=== PATIENT | female | born 1940 | race Caucasian/White ===

== ENCOUNTER 2024-12-09 11:44 | Inpatient (IN) | payer MEDICARE, SELFPAY ==
[2024-12-09] VITALS (14 sets, daily range): BP systolic 84–113; BP diastolic 40–63; BMI 21.6
--- NOTE | 2024-12-09 08:28 | ED.GENMED ---
History of Present Illness
<Alyssa French PA-C - Last Filed: 12/09/24 11:44>
General
Chief Complaint: Breathing Problem
Source: patient, ambulance crew and correction records
Exam Limitations: none
Time Seen by Provider: 12/09/24 08:14
Nursing documentation reviewed up to this point in time: agreed with
History of Present Illness
History of Present Illness:
Patient is an 84-year-old female with past medical history of end-stage renal disease on hemodialysis Monday, Monday, Monday, hyperlipidemia, cirrhosis, ascites, hypothyroidism, who presents to the emergency department from her nursing facility
via EMS for evaluation of hypoxemia, altered mental status. Patient reports that she has been feeling unwell for the past 3 days or so. She reports she has been more tired than usual and has been sleeping a lot. She reports that her body felt hot
and she was concerned she had a fever. She reports that they would check it at the facility and the highest it was was 99 �F. Patient reports that she woke up this morning as usual and went to dialysis. She reports they did not give her her
midodrine prior to going to dialysis because her systolic blood pressure was greater than 130. Patient reportedly had about 54 minutes of dialysis before they noticed that she seemed a little out of it. They also noticed that her oxygen levels
were in the low 80s and 911 was called. Patient does not use supplemental oxygen at baseline. Patient reports that she has had a runny/stuffy nose lately as well as a nonproductive cough. Patient reports that the cough does make her feel a little
short of breath. Patient denies chest pain, abdominal pain nausea, vomiting. Patient reports some looser bowel movements this morning otherwise denies change in her bowel habits. Patient denies any lower extremity edema. Patient reports she does
have a wound to the left lower extremity which they are checking and dressing daily at her facility. Patient reports she receives dialysis via a Permacath in the right neck.
Past History
<Alyssa French PA-C - Last Filed: 12/09/24 11:44>
Past History
ED Past Medical History: Renal failure and Other (Cirrhosis, ESLD, paracentesis)
ED Past Surgical History: Other
Social History
Tobacco: Non-smoker
Alcohol: None
Drug: None
Personal: Single
Living: with family
Review of Systems
<Alyssa French PA-C - Last Filed: 12/09/24 11:44>
Review of Systems
Allergies reviewed?: Yes
All Other Systems: ROS reviewed and negative except as documented in HPI and ROS
Constitutional: Reports fatigue and chills
EENT: Reports runny nose
Respiratory: Reports cough and trouble breathing
Cardiac: Reports no symptoms; Denies chest pain or palpitations
ABD/GI: Reports diarrhea; Denies abdominal pain, nausea or vomiting
: Reports no symptoms
Musculoskeletal: Reports no symptoms
Skin: Reports other (wound to the LLE)
Neurological: Reports no symptoms
Endocrine: Reports no symptoms
Hematologic/Lymphatic: Reports no symptoms
Psychiatric: Reports no symptoms
Phy Exam
<Alyssa French PA-C - Last Filed: 12/09/24 11:44>
General Physical Exam
General Presentation: well appearing and no apparent distress
General age: other (cachectic)
General Skin: dry and feels hot
General Habitus: normal
General Mental: alert
General Hydration: appears well hydrated
ENT Exam
ENT Exam: EOMI, pharynx normal, neck supple and normocephalic
Eye Exam
Eye Exam: PERRL, cornea clear and conjunctiva normal
Cardiovascular Exam
Cardiovascular Exam: regular rate/rhythm, no edema, no murmur and normal peripheral pulses
Pulmonary Exam
Pulmonary Exam: lungs clear, no rales, no crackles, no rhonchi and no stridor
Respiratory Effort: tachypnea
Respirations: mild increase in effort
Gastrointestinal Exam
Gastrointestinal Exam: normal bowel sounds, non tender, soft, no organomegaly, no pulsatile mass, non distended and other (reducible umbilical hernia)
Neurological Exam
Neurological Exam: alert, oriented x3, no motor deficits and speech normal
Musculoskeletal Exam
Musculoskeletal Exam: full ROM and no edema
Skin Exam
Skin Exam: normal color, warm/dry, no rash, no petechia and other (wound to the proximal aspect of the posterior left lower leg with purulent drainage noted)
Psychiatric Exam
Psychiatric Exam: normal mood/affect
Scores
<Alyssa French PA-C - Last Filed: 12/09/24 11:44>
Heart Failure Risk
Heart Failure Risk Score: Not Applicable
Sepsis
<Alyssa French PA-C - Last Filed: 12/09/24 11:44>
Sepsis Criteria
Sepsis Criteria:
Sepsis caveat: Full 30cc/kg bolus of IVF not given due to suspicion that the patient is already fluid overloaded as she only had 1 hour of HD this morning and otherwise last session was 3 days ago along with patient's mildly increased respiratory
effort.
Sepsis Screening
Sepsis Assessment: Sepsis
Sepsis Screening: Lactate >/=4mmol/L and Hypotension
Sepsis Screen
Sepsis Screen: Sepsis
Date: 12/09/24
Time: 11:43
<Lencho Huynh MD - Last Filed: 12/09/24 12:42>
Sepsis Screen
Sepsis Screen: Sepsis
Date: 12/09/24
Time: 12:42
Course
<Alyssa French PA-C - Last Filed: 12/09/24 11:44>
Orders/Labs/Results
Orders:
Orders
12/09/24 08:16
EKG [Electrocardiogram (*1)] Urgent
Reason for Study: Tachycardia
EKG- Treatment ONCE
12/09/24 08:31
Cardiac Monitoring- Treatment ONCE
Urinalysis Reflex To Culture Urgent
Date Specimen was Collected: 12/09/24
Time Specimen was Collected: 10:00
Acetaminophen [Tylenol] 1,000 mg PO NOW STA
12/09/24 08:32
EKG- Treatment ONCE
CR Chest Portable - 1 View Urgent
Comment:
Reason For Exam: fever, hypoxemia, altered mental status, ?PNA
Reason Study Needs to be Portable: Unable to Transport
12/09/24 08:33
0.9% Sodium Chloride 250 ml [Nss] 250 ml IV BOLUS
12/09/24 08:40
Complete Blood Count/With Diff Urgent
Comprehensive Metabolic Panel Urgent
Lactic Acid Q4H
Comment: CANCEL 2nd LACTIC ACID IF 1st LACTIC ACID IS LESS THAN 2
PTT Urgent
Prothrombin Time Urgent
Blood Culture Q30M
ARTURO Source: Blood/Venous
Specimen Description:
Blood Culture Q30M
ARTURO Source: Blood/Venous
Specimen Description:
12/09/24 08:47
Knee, Left 4 or More Views [CR Knee - Left 4 Or More View*] Urgent
Comment:
Reason For Exam: left posterior knee wound
Tibia/Fibula, Left 2 View [CR Leg Tibia/fibula Left 2 Vw] Urgent
Comment:
Reason For Exam: left proximal posterior wound with purulence
12/09/24 08:52
Cefepime HCl [Maxipime] 2,000 mg IV NOW STA
12/09/24 09:00
C DIFF [C difficile Antigen & Toxins] Urgent
ARTURO Source: Feces/Stool
Specimen Description:
Date Specimen was Collected: 12/09/24
Time Specimen was Collected: 09:03
12/09/24 09:22
Vancomycin [Vancocin] 1,500 mg 0.9% Sodium Chloride 500 ml [Nss] 500 ml IV NOW
12/09/24 10:36
Midodrine [ProAmatine] 10 mg PO NOW STA
12/09/24 11:09
Admit/Transfer Patient As Directed
Co-Sign Provider:
Level of Care: Inpatient admission
Assign to:: IMU- Intermediate Care
Physician / Group: katie leyva
Diagnosis: Severe sepsis
Patient Condition: Fair
Reason for Hospitalization: Severe sepsis with acute organ dysfunction.
New onset A-fib
Expected length of stay greater than two midnights?: Yes
ELOS- Estimated Length of Stay in days: 3
I certify the patient meets the requirements for IP care: Yes
PRN Pain Medication Management As Directed
May give lesser potent ordered pain med per pt: Yes
preference::
Protocol:: Medication orders for pain may be administered in a
manner that supports deferring to patient preference
when the pt is:
- Requesting an ordered lesser potent pain medication.
Least to most potent pain medications are defined
as: acetaminophen < NSAID < tramadol < opioids
(morphine, oxycodone, hydromorphone).
- Requesting a lesser dose of the same medication IF
ORDERED.
- Requesting a less intrusive route of administration
if both routes are prescribed by the provider (PO <
IV).
12/09/24 11:10
Code Status As Directed
Resuscitation Status: Full Code
12/09/24 12:45
Lactic Acid Q4H
Comment: CANCEL 2nd LACTIC ACID IF 1st LACTIC ACID IS LESS THAN 2
Abnormal Lab Results
12/09/24
08:40
WBC 18.9 H 10^3/uL
(4.8-10.8)
RBC 3.15 L 10^6/uL
(4.20-5.40)
Hgb 10.6 L g/dL
(12.0-16.0)
Hct 32.4 L %
(37.0-47.0)
MCV 102.9 H fL
(81.0-99.0)
MCH 33.7 H pg
(27.0-31.0)
MCHC 32.7 L g/dL
(33.0-37.0)
RDW 15.4 H %
(11.5-14.5)
Plt Count 99 L 10^3/uL
(130-400)
MPV 11.0 H fL
(7.4-10.4)
Abs Immat Gran (auto) 1.1 H 10^3/uL
(0-0.05)
Absolute Neuts (auto) 16.9 H 10^3/uL
(1.4-6.5)
Absolute Lymphs (auto) 0.2 L 10^3/uL
(1.2-3.4)
Immature Gran % 5.9 H %
(0-0.5)
Neutrophils % 89.7 H %
(42.2-75.2)
Lymphocytes % 1.2 L %
(20.5-51.1)
PT 17.5 H Sec
(11.4-14.6)
APTT 56.2 H Sec
(23.4-35.0)
BUN 33 H mg/dl
(7-17)
Creatinine 3.5 H mg/dL
(0.6-1.0)
Glucose 169 H mg/dl
(70-99)
Lactic Acid 4.8 H* mmol/L
(0.7-2.0)
Total Protein 6.1 L g/dl
(6.3-8.2)
Albumin 3.1 L g/dl
(3.5-5.0)
12/09/24 08:40
12/09/24 08:40
Vital Signs
Initial and Last Documented VS:
Initial Vital Signs
Pulse Resp BP Pulse Ox
112 26 92/60 96
12/09/24 08:14 12/09/24 08:14 12/09/24 08:14 12/09/24 08:14
Last Documented Vital Signs
Temp Pulse Resp BP Pulse Ox
102.3 F H 102 35 94/59 94
12/09/24 08:31 12/09/24 11:15 12/09/24 11:15 12/09/24 11:01 12/09/24 11:15
<Lencho Huynh MD - Last Filed: 12/09/24 12:42>
Orders/Labs/Results
Orders:
Orders
12/09/24 08:16
EKG [Electrocardiogram (*1)] Urgent
Reason for Study: Tachycardia
EKG- Treatment ONCE
12/09/24 08:31
Cardiac Monitoring- Treatment ONCE
Urinalysis Reflex To Culture Urgent
Date Specimen was Collected: 12/09/24
Time Specimen was Collected: 10:00
Acetaminophen [Tylenol] 1,000 mg PO NOW STA
12/09/24 08:32
EKG- Treatment ONCE
CR Chest Portable - 1 View Urgent
Comment:
Reason For Exam: fever, hypoxemia, altered mental status, ?PNA
Reason Study Needs to be Portable: Unable to Transport
12/09/24 08:33
0.9% Sodium Chloride 250 ml [Nss] 250 ml IV BOLUS
12/09/24 08:40
Complete Blood Count/With Diff Urgent
Comprehensive Metabolic Panel Urgent
Lactic Acid Q4H
Comment: CANCEL 2nd LACTIC ACID IF 1st LACTIC ACID IS LESS THAN 2
PTT Urgent
Prothrombin Time Urgent
Blood Culture Q30M
ARTURO Source: Blood/Venous
Specimen Description:
Blood Culture Q30M
ARTURO Source: Blood/Venous
Specimen Description:
12/09/24 08:47
Knee, Left 4 or More Views [CR Knee - Left 4 Or More View*] Urgent
Comment:
Reason For Exam: left posterior knee wound
Tibia/Fibula, Left 2 View [CR Leg Tibia/fibula Left 2 Vw] Urgent
Comment:
Reason For Exam: left proximal posterior wound with purulence
12/09/24 08:52
Cefepime HCl [Maxipime] 2,000 mg IV NOW STA
12/09/24 09:00
C DIFF [C difficile Antigen & Toxins] Urgent
ARTURO Source: Feces/Stool
Specimen Description:
Date Specimen was Collected: 12/09/24
Time Specimen was Collected: 09:03
12/09/24 09:22
Vancomycin [Vancocin] 1,500 mg 0.9% Sodium Chloride 500 ml [Nss] 500 ml IV NOW
12/09/24 10:36
Midodrine [ProAmatine] 10 mg PO NOW STA
12/09/24 11:09
Admit/Transfer Patient As Directed
Co-Sign Provider:
Level of Care: Inpatient admission
Assign to:: IMU- Intermediate Care
Physician / Group: katie leyva
Diagnosis: Severe sepsis
Patient Condition: Fair
Reason for Hospitalization: Severe sepsis with acute organ dysfunction.
New onset A-fib
Expected length of stay greater than two midnights?: Yes
ELOS- Estimated Length of Stay in days: 3
I certify the patient meets the requirements for IP care: Yes
PRN Pain Medication Management As Directed
May give lesser potent ordered pain med per pt: Yes
preference::
Protocol:: Medication orders for pain may be administered in a
manner that supports deferring to patient preference
when the pt is:
- Requesting an ordered lesser potent pain medication.
Least to most potent pain medications are defined
as: acetaminophen < NSAID < tramadol < opioids
(morphine, oxycodone, hydromorphone).
- Requesting a lesser dose of the same medication IF
ORDERED.
- Requesting a less intrusive route of administration
if both routes are prescribed by the provider (PO <
IV).
12/09/24 11:10
Code Status As Directed
Resuscitation Status: Full Code
12/09/24 12:45
Lactic Acid Q4H
Comment: CANCEL 2nd LACTIC ACID IF 1st LACTIC ACID IS LESS THAN 2
Abnormal Lab Results
12/09/24
08:40
WBC 18.9 H 10^3/uL
(4.8-10.8)
RBC 3.15 L 10^6/uL
(4.20-5.40)
Hgb 10.6 L g/dL
(12.0-16.0)
Hct 32.4 L %
(37.0-47.0)
MCV 102.9 H fL
(81.0-99.0)
MCH 33.7 H pg
(27.0-31.0)
MCHC 32.7 L g/dL
(33.0-37.0)
RDW 15.4 H %
(11.5-14.5)
Plt Count 99 L 10^3/uL
(130-400)
MPV 11.0 H fL
(7.4-10.4)
Abs Immat Gran (auto) 1.1 H 10^3/uL
(0-0.05)
Absolute Neuts (auto) 16.9 H 10^3/uL
(1.4-6.5)
Absolute Lymphs (auto) 0.2 L 10^3/uL
(1.2-3.4)
Immature Gran % 5.9 H %
(0-0.5)
Neutrophils % 89.7 H %
(42.2-75.2)
Lymphocytes % 1.2 L %
(20.5-51.1)
PT 17.5 H Sec
(11.4-14.6)
APTT 56.2 H Sec
(23.4-35.0)
BUN 33 H mg/dl
(7-17)
Creatinine 3.5 H mg/dL
(0.6-1.0)
Glucose 169 H mg/dl
(70-99)
Lactic Acid 4.8 H* mmol/L
(0.7-2.0)
Total Protein 6.1 L g/dl
(6.3-8.2)
Albumin 3.1 L g/dl
(3.5-5.0)
12/09/24 08:40
12/09/24 08:40
Vital Signs
Initial and Last Documented VS:
Initial Vital Signs
Pulse Resp BP Pulse Ox
112 26 92/60 96
12/09/24 08:14 12/09/24 08:14 12/09/24 08:14 12/09/24 08:14
Last Documented Vital Signs
Temp Pulse Resp BP Pulse Ox
102.3 F H 102 35 94/59 94
12/09/24 08:31 12/09/24 11:15 12/09/24 11:15 12/09/24 11:01 12/09/24 11:15
<Alyssa French PA-C - Last Filed: 12/09/24 11:44>
*Critical Care Note
Total Time (30-74mins, 75-104mins- exclusive of procedures): Not Applicable
<Alyssa French PA-C - Last Filed: 12/09/24 11:44>
Update Note
Update Note:
84-year-old female with past medical history as noted including end-stage renal disease on hemodialysis presents to the emergency department for evaluation of altered mental status and hypoxemia while at dialysis this morning. Patient notes 3 to 4
days of fatigue, subjective fevers, and a dry cough. On arrival, patient noted to be febrile, tachycardic, hypotensive, tachypneic. Patient noted to be hypoxic to the low 80s for medics, nonrebreather was placed and the patient went up to 100%.
Nonrebreather was replaced with 4 L of nasal cannula and oxygenation remained in the 90s. Off of oxygen, patient's oxygenation drops to the low 80s. On exam, patient is cachectic with mild increased respiratory effort but is in no acute distress,
she is noted to be tachypneic and to have a wound to the left lower extremity with purulent drainage. Will initiate sepsis protocol with IV, labs to include blood cultures, lactate. Will also check a chest x-ray as well as radiographs of the left
lower extremity to evaluate for subcutaneous emphysema. Will check stool for C. difficile as patient has had a few episodes of diarrhea here in the emergency department today. Will give a small fluid bolus given the fact that the patient is on
dialysis and has end-stage renal disease and only had 54 minutes of dialysis this morning. Will give Tylenol for the fever. Will initiate empiric antibiotics. Patient aware that she will require admission today.
Labs notable for leukocytosis to 18.9 with left shift, lactate of 4.8. EKG demonstrates atrial fibrillation with RVR to 113bpm, apparently new for the patient. CXR is consistent with COPD, no obvious infiltrates noted.
1038AM: BP now 80's/50's, patient mentating normally. She reports this is her typical blood pressure if she does not get her midodrine which she did not get this morning. Confirmed dose is 10mg, will give now.
1052AM: Radiographs of the LLE without evidence of subcutaneous emphysema. Awaiting straight cath/UA results. Patient aware of the plan for admission. Case discussed with the hospitalist and patient signed out without complication.
ED Attending Note
<Alyssa French PA-C - Last Filed: 12/09/24 11:44>
-
Portions of this chart may have been created with voice recognition software.� Occasional wrong word or��sound alike� substitutions may have occurred due to the inherent limitations of voice recognition software.
<Lencho Huynh MD - Last Filed: 12/09/24 12:42>
ED Attending Note
Patient seen and examined by attending physician: Yes
I performed the substantive portion of visit, reviewed & personally made and approve the management plan that is documented in note by myself or RACHEL.: Yes
ED Attending Note:
I have seen and evaluated the patient with a [id number] encounter. I have spoken to the [PA] and involved in the medical history, the physical exam, medical decision making.
Evaluation and management service: agree unless noted differently below.
Results interpretation: agree unless noted differently below.
84-year-old woman with history of CKD on dialysis, cirrhosis presenting to the emergency department with shortness of breath that occurred at dialysis. Patient was about an hour into dialysis when she became hypoxic and short of breath. She was
found to have low blood pressure but she states that she was not given midodrine. They placed her on nasal cannula and medics were called. By the time patient arrived to the emergency department she was able to be weaned off her nasal cannula and
some of the shortness of breath had improved. She does state that she has had some respiratory symptoms for the past few days. She also notes that she has had a wound to her lower extremity that has been nonhealing. On arrival here patient is
febrile. She is hypotensive. She is hypoxic to the low 80s. Will place her on nasal cannula. Her lungs do have fine crackles at the bases and abdomen is soft nondistended nontender.
Differential is broad but consists of viral infection such as pneumonia versus skin infection or volume overload. Will check blood work EKG and chest x-ray. Will give small fluid bolus and initiate pressors if needed. Consider BiPAP however
patient is not in respiratory distress so we will hold off at this time. low threshold to initiate. patient will need admission for further eval and monitoring
Discharge Plan
Departure
Patient Disposition: Admit
Date of Disposition: 12/09/24
Time of Disposition: 10:46
Presentation/result/management discussed w/ accepting MD/DO: Hospitalist
Patient with high blood pressure during this ER visit?: No
Condition: Fair
Discharge Problem:
Sepsis, Cough, Open wound of left lower extremity with complication, Atrial fibrillation, new onset
Interventions
Interventions:
*Risk Screen - Suicide Last Done: 12/09/24 08:14
*General Assessment Last Done: 12/09/24 08:14
*Neglect/Abuse Screening Last Done: 12/09/24 08:14
*ED- Fall Risk Assessment Last Done: 12/09/24 08:14
*ED COVID-19 Vaccine History Last Done: 12/09/24 08:14
ED- Cardiac Assessment Last Done: 12/09/24 08:53
ED- Pulmonary Assessment Last Done: 12/09/24 08:54
[2024-12-09] MEDS: TYLENOL 1000 MG PO (08:56)
[2024-12-09] MEDS: NSS 250 IV (08:57)
[2024-12-09 09:00] LABS: Hematocrit 32.4 % (37.0-47.0); Hemoglobin 10.6 g/dL (12.0-16.0); Mean Corp Hgb Conc. 32.7 g/dL (33.0-37.0); Mean Corpuscular Hgb 33.7 pg (27.0-31.0); Mean Corpuscular Volume 102.9 fL (81.0-99.0); PT 17.5 Sec (11.4-14.6); Red Blood Cell Count 3.15 10^6/uL (4.20-5.40); Red Cell Dist. Width 15.4 % (11.5-14.5); White Blood Cell Count 18.9 10^3/uL (4.8-10.8)
[2024-12-09 09:01] LABS: APTT 56.2 Sec (23.4-35.0)
[2024-12-09 09:04] LABS: Lactic Acid 4.8 mmol/L (0.7-2.0)
[2024-12-09 09:24] LABS: AST (SGOT) 25 U/L (14-36); Albumin 3.1 g/dl (3.5-5.0); Alkaline Phosphatase 109 U/L (38-126); Blood Urea Nitrogen 33 mg/dl (7-17); Calcium 8.5 mg/dl (8.4-10.2); Carbon Dioxide 22 mmol/L (22-30); Chloride 100 mmol/L (98-107); Estimated Creatinine Clearance 10 ml/min; Glucose 169 mg/dl (70-99); Potassium 3.9 mmol/L (3.5-5.1); Sodium 136 mmol/L (135-145); Total Bilirubin 1.1 mg/dl (0.2-1.3); Total Protein 6.1 g/dl (6.3-8.2); eGFR 12.35
[2024-12-09 09:28] LABS: % Basophils 0.3 % (0-2); % Immature Granulocytes 5.9 % (0-0.5); % Lymphocytes 1.2 % (20.5-51.1); % Monocytes 2.9 % (1.7-9.3); % Neutrophils 89.7 % (42.2-75.2); Absolute Basophils 0.1 10^3/uL (0-0.2); Absolute Immature Granulocytes 1.1 10^3/uL (0-0.05); Absolute Lymphocytes 0.2 10^3/uL (1.2-3.4); Absolute Monocytes 0.6 10^3/uL (0.1-0.6); Absolute Neutrophils 16.9 10^3/uL (1.4-6.5); Nucleated Red Blood Cells % 0 %; Platelet Count 99 10^3/uL (130-400)
[2024-12-09] MEDS: MAXIPIME 2000 MG IV (09:49)
[2024-12-09] MEDS: VANCOCIN 530 MG IV (09:57)
[2024-12-09 10:49] LABS: ALT (SGPT) 19 U/L (0-35)
[2024-12-09] MEDS: ProAmatine 10 MG PO ×3 (10:51→21:20)
--- NOTE | 2024-12-09 10:52 | W.PN.HOSP.TC ---
Assessment / Plan
Assessment / Plan
Impression:
Assessment/plan:
Severe sepsis with acute organ dysfunction
Patient meets sepsis criteria on admission
Heart rate
WBCs
Respiratory rate
Temperature
Source of infection is
IV fluid
IV antibiotic in form of
Blood culture pending
Urine culture pending
Consult infectious disease
New onset A-fib with RVR
End-stage renal disease on hemodialysis.
Anemia of chronic disease
History of insulin-dependent diabetes mellitus
Continue home medication
Insulin sliding scale
Diabetic diet
Hemoglobin A1c
History of hyperlipidemia.
Continue statin
History of hypothyroidism.
Continue Synthroid
CODE STATUS: Full code
DVT prophylaxis: Lovenox
Diet: Regular diet
Family communication:
Disposition:
Total time spent on today's encounter was 75 minutes which included time spent in counseling the patient/family regarding diagnosis and treatment plan as listed above, goals of care, and symptom management. Case was discussed with nursing staff,
specialists, and care coordinators/case management. All labs and imaging personally reviewed by me. Remainder the time spent in detailed review of previous records, lab data, imaging, and other medical provider documentation.
Subjective/Interval History
-
Date of Service: December 09, 2024
Objective Data
-
Labs:
Laboratory Results
12/09/24
08:40
WBC 18.9 H
Hgb 10.6 L
Hct 32.4 L
Plt Count 99 L
PT 17.5 H
INR 1.40
APTT 56.2 H
Sodium 136
Potassium 3.9
Chloride 100
Carbon Dioxide 22
BUN 33 H
Creatinine 3.5 H
Glucose 169 H
Calcium 8.5
Total Bilirubin 1.1
AST 25
ALT 19
Alkaline Phosphatase 109
Vital Signs:
Vital Signs
Temp Pulse Resp BP Pulse Ox
102.3 F H 112 26 92/60 95
12/09/24 08:31 12/09/24 08:14 12/09/24 08:14 12/09/24 08:14 12/09/24 08:54
Physical Exam
-
General: Well Developed, Well Nourished, No Apparent Distress and Comfortable
HEENT: Normocephalic, Atraumatic, Moist Mucous Membranes, No Ptosis, PERRLA and Nose Appears Normal
Respiratory: Clear to Auscultation and Non Labored Respirations
Cardiac: Regular Rhythm and S1/S2
Breast: Deferred by me
GI: Soft, Nontender, Nondistended and Normal Bowel Sounds
Genito-urinary: No Costovertebral Tender
Musculoskeletal: No Clubbing, No Cyanosis and No Edema
Skin: Warm
Neuro: Awake, Alert, Oriented, AO x 3 and No Motor Deficits
Psych: Calm
Data Reviewed
-
Diagnostic Radiology: Image personally visualized and interpreted and Report Reviewed by me
CT Scan: Image personally visualized and interpreted and Report Reviewed by me
Ultrasound: Image personally visualized and interpreted and Report Reviewed by me
MRI: Image personally visualized and interpreted and Report Reviewed by me
Medical Tests (Nuc Med, Echo etc): Image personally visualized and interpreted and Report Reviewed by me
Labs: Labs Reviewed by me
Old Records: Reviewed
--- NOTE | 2024-12-09 11:22 | W.CON.NEPH ---
Consultation
-
Date/Time Consultation Requested: 12/09/2024 11:15 AM
Date/Time Consultation Performed: 12/09/2024 1128 AM
Requesting Provider: Dr. Huynh
Performing Provider: Dr. Lema
Reason for Consultation: End-stage renal disease
Medical History
-
Chief Complaint: ESRD
History of Present Illness:
Patient is an 84-year-old female with past medical history of end-stage renal disease on hemodialysis who receives HD on Monday, Monday, Monday ([facility]), hyperlipidemia on statin therapy, cirrhosis with chronic hypotension requiring
midodrine support, ascites, hypothyroidism, who presents to the emergency department from her nursing facility via EMS for evaluation of hypoxemia, altered mental status. Patient reports that she has been feeling unwell for the past 3 days or so.
She reports she has been more tired than usual and has been sleeping a lot. She reports that her body felt hot and she was concerned she had a fever. She reports that they would check it at the facility and the highest it was was 99 �F. Patient
reports that she woke up this morning as usual and went to dialysis. She reports they did not give her her midodrine prior to going to dialysis because her systolic blood pressure was greater than 130. Patient reportedly had about 54 minutes of
dialysis before they noticed that she seemed a little out of it. They also noticed that her oxygen levels were in the low 80s and 911 was called. Patient does not use supplemental oxygen at baseline. Patient reports that she has had a
runny/stuffy nose lately as well as a nonproductive cough. Patient reports that the cough does make her feel a little short of breath. Patient denies chest pain, abdominal pain nausea, vomiting. Patient reports some looser bowel movements this
morning otherwise denies change in her bowel habits. Patient denies any lower extremity edema. Patient reports she does have a wound to the left lower extremity which they are checking and dressing daily at her facility. Patient reports she
receives dialysis via a Permacath in the right neck. Nephrology was consulted for her end-stage renal disease in the setting of what likely will be sepsis given hypotension fever and leukocytosis.
Past Medical History
End-stage liver disease on chronic midodrine
Hyperphosphatemia
Anemia
End-stage renal disease Monday at [facility]
Dyslipidemia
Social History
Tobacco: Non-Smoker
Drug: None
Personal: Single
Living: Penitentiary
Family History
Family History: Not Pertinent
Allergies / Home Medications
Allergy/AdvReac Type Severity Reaction Status Date / Time
No Known Allergies Allergy Verified 12/09/24 08:34
�Medication �Instructions �Recorded �Confirmed �Type
acetaminophen 325 mg tablet 325 mg PO Q6HPRN PRN mild pain 08/25/22 12/09/24 History
loperamide 2 mg tablet 2 mg PO TIDPRN PRN diarrhea 08/25/22 12/09/24 History
midodrine 10 mg tablet 10 mg PO TID Blood pressure 08/25/22 12/09/24 History
ammonium lactate 12 % lotion 1 applic topical BID b/l upper and 12/09/24 12/09/24 History
lower ext.
aspirin 81 mg tablet,delayed 81 mg PO DAILY Blood Clot 12/09/24 12/09/24 History
release Prevention/Tx
atorvastatin 10 mg tablet (Lipitor) 10 mg PO HS High Cholesterol 12/09/24 12/09/24 History
bisacodyl 10 mg rectal suppository 10 mg NH Q6HPRN PRN constipation 12/09/24 12/09/24 History
(Dulcolax (bisacodyl))
calcium acetate 667 mg tablet 667 mg PO AC 12/09/24 12/09/24 History
insulin glargine 100 unit/mL (3 5 unit SC HS Diabetes 12/09/24 12/09/24 History
mL) subcutaneous pen (Lantus
Solostar U-100 Insulin)
levothyroxine 75 mcg tablet 75 mcg PO DAILY Thyroid 12/09/24 12/09/24 History
(Synthroid)
vitamin B complex 1 tab PO DAILY Supplement 12/09/24 12/09/24 History
Review of Systems
-
History Source: Patient
All other systems: Negative unless noted
Constitutional: Fever and Fatigue
Respiratory: Other (Mild shortness of breath)
Cardiac: No Symptoms
Abdomen/GI: Abdominal Pain (Vague epigastric abdominal discomfort with distention)
: No Symptoms
Musculoskeletal: No Symptoms
Skin: No Symptoms
Neurological: No Symptoms
Endocrine: No Symptoms
Hematologic/Lymphatic: No Symptoms
Physical Exam
Vital Signs
Vital Signs
Temp Pulse Resp BP Pulse Ox
102.3 F H 103 26 85/58 95
12/09/24 08:31 12/09/24 10:51 12/09/24 08:14 12/09/24 10:51 12/09/24 08:54
Lab Results
12/09/24 08:40
12/09/24 08:40
WBC 18.9 10^3/uL (4.8-10.8) H 12/09/24 08:40
RBC 3.15 10^6/uL (4.20-5.40) L 12/09/24 08:40
Hgb 10.6 g/dL (12.0-16.0) L 12/09/24 08:40
Hct 32.4 % (37.0-47.0) L 12/09/24 08:40
Plt Count 99 10^3/uL (130-400) L 12/09/24 08:40
Sodium 136 mmol/L (135-145) 12/09/24 08:40
Potassium 3.9 mmol/L (3.5-5.1) 12/09/24 08:40
Chloride 100 mmol/L (98-107) 12/09/24 08:40
Carbon Dioxide 22 mmol/L (22-30) 12/09/24 08:40
BUN 33 mg/dl (7-17) H 12/09/24 08:40
Creatinine 3.5 mg/dL (0.6-1.0) H 12/09/24 08:40
eGFR 12.35 12/09/24 08:40
Glucose 169 mg/dl (70-99) H 12/09/24 08:40
Calcium 8.5 mg/dl (8.4-10.2) 12/09/24 08:40
Albumin 3.1 g/dl (3.5-5.0) L 12/09/24 08:40
Physical Exam
General: AOx3, Nontoxic , NAD, frail
HEENT: PERRL, EOMI, Anicteric, Conjunctivae pale Ear/Nose Intact, Hearing Normal, Oropharynx Clear/Moist, Dentition Intact, Facial Symmetry, Neck Supple, Neck: Trachea Midline, No JVD and No Thyromegaly, no Bruits
Respiratory: Coarse bilaterally with normal lung exersion, some fine crackles at bases
Cardiac: S1/S2 and Regular Rate/Rhythm
Breast: Deferred by me
Abdomen: Soft, Nontender, distended with probable ascites normal Bowel Sounds and No Hepatosplenomegaly
Rectal: Deferred by Provider
Genito-urinary: No Costovertebral Tenderness
Extremities: No Clubbing, No Cyanosis and No Edema
Skin: Lower extremity superficial wound
Neuro: Nonfocal/Grossly Intact, CN II-XII (Intact) and Strength (Musculoskeletal exam 4 out of 5 lower extremities)
Hematologic/Lymphatic: No Cervical Lymphadenopathy, No Submandibular Lymphadenopathy and No Supraclavicular Lymphadenopathy
Psych: Mood/afflect pleasant, Insight/judgement good and Appropriate
Vascular: plus 1 pedal and radial pulses
Vascular Access: CVC (Tunneled right IJ catheter)
Data Reviewed
-
Radiology: Image Personally Visualized and interpreted (Chest x-ray personally reviewed shows tunneled right IJ catheter interstitial edematous changes noted)
Labs: Labs Reviewed by me (BMP CBC)
Old Records: Reviewed (Reviewed previous nephrology consultation for ESRD from July 12, 2022 in EMR)
Assessment/Plan
-
Impression:
ESRD MWF ([facility])
Fever/leukocytosis/hypotension/hypoxic: sepsis
ESLD/cirrhosis
Dyslipidemia
Chronic hypotension on midodrine
Diabetes
Hyperphosphatemia
Hypothyroid
Left lower extremity wound
Tunneled HD IJ catheter
MDS
CLL
Plan:
-Breathing comfortable on nasal cannula oxygen
- Antibiotics to be renally dosed for ESRD
- Will provide dialysis tomorrow as long as patient can be maintained hemodynamically stable, orders will be provided
- No heparin given chronic thrombocytopenia
- I would not push IV fluids in this patient unless she becomes abruptly hemodynamically unstable as she had an abbreviated course of dialysis today and was not fully dialyzed since Monday
-I would provide pressor support if maps drop below 65, maintain midodrine for chronic hypotension
- Maintain phosphate binders, i.e. calcium acetate with meals for hyperphosphatemia
- MARGARITO therapy to provided for anemia support
--- NOTE | 2024-12-09 11:38 | CON.CAR ---
Addendum entered and electronically signed by Jose Soni MD 12/09/24 16:25:
I saw and examined the patient.
The NUT ROASTER's note was reviewed and I agree with the note.
Comment:
84-year-old female with history of ESRD on HD, CVA, cirrhosis who presents with hypoxia and altered mental status, found to be septic and in A-fib with RVR. Heart rates are in the 100s�110s. She is asymptomatic from A-fib but does note abdominal
pain and vomiting.
Physical exam with irregular rate and rhythm, no murmurs, no lower extremity edema, clear lungs bilaterally
A-fib with RVR. No need for rate control at this time. Will initiate if HR >120 bpm. [id number] 6. We will start Eliquis 2.5 mg twice daily for anticoagulation and monitor. Stop aspirin. Check TSH and echo.
Original Note:
Consultation
Consultation Request
Date/Time Consultation Requested: 12/09/24 1119
Date/Time Consultation Performed: 12/29/24 1145
Requesting Provider: Dr. Gibson
Performing Provider: Karen MCPHERSON for Dr. Soni
Reason for Consultation: AFIB
Medical History
-
Chief Complaint: fatigue, hypoxemia
History of Present Illness:
84 y/o female with ESRD on HD, hx CVA, liver cirrhosis, hypotension on midodrine, ascites (with hx recurrent paracenteses), hypothyroidism, CLL hx, and dyslipidemia who is here for evaluation from facility where she was getting dialysis and they
noticed that her O2 sat was in 80's and change of MS per chart. She has been feeling unwell for a few days with fatigue and lots of sleeping. She was also feeling hot. Fever 102.3 noted in ER. We are consulted for AFIB on the monitor. She denies
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
Past Medical History
Past Medical History: CVA, Hypothyroidism, Renal Failure and Other (as abolve)
Social History
Tobacco: Non-Smoker
Alcohol: None
Family History
Family History: Reviewed & Not Pertinent
Allergies / Home Medications
Allergy/AdvReac Type Severity Reaction Status Date / Time
No Known Allergies Allergy Verified 12/09/24 08:34
�Medication �Instructions �Recorded �Confirmed �Type
acetaminophen 325 mg tablet 325 mg PO Q6HPRN PRN mild pain 08/25/22 12/09/24 History
loperamide 2 mg tablet 2 mg PO TIDPRN PRN diarrhea 08/25/22 12/09/24 History
midodrine 10 mg tablet 10 mg PO TID Blood pressure 08/25/22 12/09/24 History
ammonium lactate 12 % lotion 1 applic topical BID b/l upper and 12/09/24 12/09/24 History
lower ext.
aspirin 81 mg tablet,delayed 81 mg PO DAILY Blood Clot 12/09/24 12/09/24 History
release Prevention/Tx
atorvastatin 10 mg tablet (Lipitor) 10 mg PO HS High Cholesterol 12/09/24 12/09/24 History
bisacodyl 10 mg rectal suppository 10 mg MT Q6HPRN PRN constipation 12/09/24 12/09/24 History
(Dulcolax (bisacodyl))
calcium acetate 667 mg tablet 667 mg PO AC 12/09/24 12/09/24 History
insulin glargine 100 unit/mL (3 5 unit SC HS Diabetes 12/09/24 12/09/24 History
mL) subcutaneous pen (Lantus
Solostar U-100 Insulin)
levothyroxine 75 mcg tablet 75 mcg PO DAILY Thyroid 12/09/24 12/09/24 History
(Synthroid)
vitamin B complex 1 tab PO DAILY Supplement 12/09/24 12/09/24 History
Review of Systems
-
History Source: Patient (and chart)
All other systems: Negative unless noted
Constitutional: Fever and Fatigue
Physical Exam
Vital Signs
Temp Pulse Resp BP Pulse Ox
102.3 F H 102 35 94/59 94
12/09/24 08:31 12/09/24 11:15 12/09/24 11:15 12/09/24 11:01 12/09/24 11:15
Lab Results
12/09/24 08:40
12/09/24 08:40
Physical Exam
General: Well Developed, Well Nourished and No Apparent Distress
HEENT: Normocephalic and Anicteric
Respiratory: Clear and Non Labored Respirations
Cardiac: Irregular Rhythm
Skin: Warm and Dry
Neuro: AO x 3
Psych: Calm
Impression / Plan
-
Sepsis:
-source unknown
-blood cultures and urine pending, covid19 negative
-getting ABX
-ID is consulted
AFIB: unknown type and onset
-rate is slightly high in the setting of acute illness, no symptoms- BP runs low. Would not add rate-control meds at this time- rate acceptable for circumstance. Monitor rhythm and rate as she is treated for underlying illness.
-[id number] score is 6 for age, female, Hx CVA, DM. Patient denies bleeding issues or falls. She does have thrombocytopenia and anemia. Monitor closely. Heparin drip initiated, which requires intensive monitoring. Can change to Eliquis tonight.
Dose is 2.5 mg PO BID.
-TSH, echo
ESRD on HD:
-management per nephro
Hx cirrhosis
Data Reviewed
-
EKG: Tracing Personally Visualized and interpreted (AFIB 113 BPM)
Radiology: Report Reviewed by me (CXR: Limited study. Findings are consistent with changes of COPD)
Medical Tests (Nuc Med, Echo etc): Other (echo ordered)
Labs: Labs Reviewed by me
--- NOTE | 2024-12-09 12:36 | HPS.HSE ---
Family Physician
-
Family Physician: Corey Ceballos
Chief Complaint
-
Shortness of breath, change in mental status
History of Present Illness
Patient is a pleasant 84 years old with history of end-stage renal disease on hemo-doalysis MWF, history of hyperlipidemia, cirrhosis, ascites, hypothyroidism who came to the ER from nursing facility for evaluation of change in her status, low
oxygen sat, patient seen and examined at bedside, does not recall why she came to the hospital, but she is awake and oriented now.
Patient also noted to have A-fib with RVR in the ER and she denies history of A-fib in the past.
Patient was not feeling well for last 3 days, in the ER patient noted to have evidence of severe sepsis with lactic acidosis, started on cefepime and Vanco.
Patient seen and examined at bedside, denies chest pain or shortness of breath, complaining of lower abdominal discomfort, bilateral lower extremity which showed superficial wounds, patient does not recall any falls.
Medical History
Past Medical History
Past Medical History: Reports Renal Failure
Additional Past Medical History:
End-stage liver disease on chronic midodrine
Hyperphosphatemia
Anemia
End-stage renal disease Monday at [facility]
Dyslipidemia
Past Surgical History: Reports Other
Social History
Tobacco: Non-smoker
Alcohol: None
Drug: None
Living: [facility]
Family History
Family History: Not pertinent
Allergies / Home Medications
Allergies reflects when Allergies were last updated in [facility].
Home Medications with original date entered in [facility]
Allergy/Medication List:
Allergies
Allergy/AdvReac Type Severity Reaction Status Date / Time
No Known Allergies Allergy Verified 12/09/24 08:34
Home Medications
acetaminophen 325 mg tablet 325 mg PO Q6HPRN PRN mild pain 08/25/22
loperamide 2 mg tablet 2 mg PO TIDPRN PRN diarrhea 08/25/22
midodrine 10 mg tablet 10 mg PO TID Blood pressure 08/25/22
ammonium lactate 12 % lotion 1 applic topical BID b/l upper and lower ext. 12/09/24
aspirin 81 mg tablet,delayed release 81 mg PO DAILY Blood Clot Prevention/Tx 12/09/24
atorvastatin 10 mg tablet (Lipitor) 10 mg PO HS High Cholesterol 12/09/24
bisacodyl 10 mg rectal suppository (Dulcolax (bisacodyl)) 10 mg [place] Q6HPRN PRN constipation 12/09/24
calcium acetate 667 mg tablet 667 mg PO AC CKD 12/09/24
insulin glargine 100 unit/mL (3 mL) subcutaneous pen (Lantus Solostar U-100 Insulin) 5 unit SC HS Diabetes 12/09/24
levothyroxine 75 mcg tablet (Synthroid) 75 mcg PO DAILY Thyroid 12/09/24
vitamin B complex 1 tab PO DAILY Supplement 12/09/24
Review of Systems
-
A 12 point ROS was completed and negative except as noted: Yes
Constitutional: Reports Fever and Fatigue; Denies Weight Gain, Weight Loss or Sleep Disturbance
EENT: Denies Tearing, Sore Throat, Mouth Pain, Mouth Swelling or Runny Nose
Respiratory: Reports Cough; Denies Hemoptysis or Trouble Breathing
Cardiac: Denies Chest Pain, Diaphoresis, Palpitations or Syncope
Abdomen/GI: Reports Abdominal Pain; Denies Nausea, Vomiting, Diarrhea, Constipated, Bloody Stools or Black Stools
: Denies Dysuria, Frequency, Flank Pain, Incontinence, Difficulty Voiding, Urgency, Bleeding or Dark Urine
Musculoskeletal: Denies Joint Pain, Joint Swelling, Muscle Pain, Muscle Stiffness or Edema
Skin: Denies Itching or Rash
Neurological: Denies Dizzy, Headache, Weakness or Numbness
Endocrine: Denies Polyuria, Polydipsia or Temp Intolerance
Hematologic/Lymphatic: Denies Bleeding, Swollen Glands or Bruising
Psych: Reports Calm; Denies Depression, Anxiety or Panic Disorder
Physical Exam
Vital Signs
Vital Signs
Temp Pulse Resp BP Pulse Ox
102.3 F H 102 35 94/59 94
12/09/24 08:31 12/09/24 11:15 12/09/24 11:15 12/09/24 11:01 12/09/24 11:15
Physical Exam
General: Respiratory Distress, Good Appetite, Appears Chronically Ill and Cachectic; No Pain, Chills or Sweats
HEENT: NormoCephalic, Moist mucous membranes, Atraumatic, Good Dentition, PERRLA, Nose Appears Normal and Ears Appear Normal
Respiratory: Rales and Rhonchi
Cardiac: Regular Rhythm, Irregular Rhythm and Tachycardia
Breast: Deferred by me
GI: Soft, Non Tender, Non Distended and Normal Bowel Sounds
Genito-urinary: Deferred by me
Musculoskeletal: No Clubbing, No Cyanosis and No Edema
Skin: Warm, Rash, Ulcers, Lesions (Bilateral knee) and Other (Wound left leg); No Jaundice or Decubitus Ulcers
Neuro: Awake, Alert, Oriented, AO x 3, No Motor Deficits, Nonfocal/grossly intact and Cranial Nerves Intact
Hematologic/Lymphatic: No Lymphadenopathy
Psych: Calm
Laboratory Results
-
12/09/24 08:40
12/09/24 08:40
Laboratory Results
PT 17.5 Sec (11.4-14.6) H 12/09/24 08:40
INR 1.40 12/09/24 08:40
APTT 56.2 Sec (23.4-35.0) H 12/09/24 08:40
Lactic Acid 4.8 mmol/L (0.7-2.0) H* 12/09/24 08:40
Total Bilirubin 1.1 mg/dl (0.2-1.3) 12/09/24 08:40
AST 25 U/L (14-36) 12/09/24 08:40
ALT 19 U/L (0-35) 12/09/24 08:40
Alkaline Phosphatase 109 U/L (38-126) 12/09/24 08:40
Data Reviewed
-
Diagnostic Radiology: Report Reviewed by me
CT Scan: Report Reviewed by me
Medical Tests (Nuc Med, Echo, EKG etc): Report Reviewed by me
Lab Data: Labs Reviewed by me
Old Records: Reviewed
Impression/Plan
-
Impression:
Patient is an 84-year-old female with past medical history of end-stage renal disease on hemodialysis who receives HD on Monday, Monday, Monday ([facility]), hyperlipidemia on statin therapy, cirrhosis with chronic hypotension requiring
midodrine support, ascites, hypothyroidism, who presents to the emergency department from her nursing facility via EMS for evaluation of hypoxemia, altered mental status. Found to have severe sepsis with lactic acidosis started on vancomycin and
cefepime, also A-fib with RVR, source of infection could be lower extremity wound.
Assessment/plan:
Severe sepsis with acute organ dysfunction/lactic acidosis
Acute metabolic encephalopathy
Patient meets sepsis criteria on admission
Heart rate 112
WBCs 18.9
Respiratory rate 36
Temperature 102.3
Source of infection is (possible lower extremity wound, cannot rule out HD catheter as a source)
Avoid IV fluid as per nephrology commendations
IV antibiotic in form of vancomycin/cefepime
Blood culture pending
Urine culture pending
Consult infectious disease
New onset A-fib with RVR
Patient said no history of A-fib in the past
Possibly secondary to sepsis
Start heparin drip
Blood pressure is soft, limited options for rate control.
Cardiology consult.
Echocardiogram pending.
End-stage renal disease on hemodialysis.
Appreciate nephrology input.
Dialysis tomorrow
Anemia of chronic disease
Continue to monitor hemoglobin.
No indication for transfusion
History of insulin-dependent diabetes mellitus
Continue home medication
Insulin sliding scale
Diabetic diet
Hemoglobin A1c
History of hyperlipidemia.
Continue statin
History of hypothyroidism.
Continue Synthroid
CODE STATUS: Full code
DVT prophylaxis: heparin drip
Diet: DM diet
Disposition: Admit to IMU
Total time spent on today's encounter was 75 minutes which included time spent in counseling the patient/family regarding diagnosis and treatment plan as listed above, goals of care, and symptom management. Case was discussed with nursing staff,
specialists, and care coordinators/case management. All labs and imaging personally reviewed by me. Remainder the time spent in detailed review of previous records, lab data, imaging, and other medical provider documentation.
--- NOTE | 2024-12-09 14:18 | CON.ID ---
Consultation
-
Date/Time Consultation Requested: December 09, 2024 1353
Date/Time Consultation Performed: 12/09/2024 1420
Requesting Provider: Dr. Elyse Gibson
Performing Provider: Dr. Sharon Marcum
Reason for Consultation: Sepsis
Chief Complaint / Past History
Chief Complaint
Weakness
History of Present Illness
84-year-old female with history of diabetes mellitus, cirrhosis, end-stage renal disease on hemodialysis via HD catheter, who presented from [facility] today for increased lethargy. She states she has been feeling unwell for the past few days decreased
appetite, fatigue, sleeping a lot, and weakness. Had shortness of breath. In the ED, patient noted to be febrile 102.3, low O2 sat, white count of 18.9, lactic acid 4.8, new onset atrial fibrillation. Chest x-ray unremarkable. She is started on
vancomycin and cefepime. Patient denies cough. No headache. No nausea vomiting or abdominal pain. No diarrhea. No flank pain. She makes some urine without dysuria. She has several skin tears from bumping legs against objects. She reports
recent dialysis catheter infection which was removed with new one placed several weeks ago at [facility].
Past History
Additional Past Medical History:
Diabetes mellitus
Liver cirrhosis with ascites
End-stage renal disease on hemodialysis
MDS with pancytopenia
Hypothyroidism
COPD
HLD
Venous insufficiency
R hallux amputation
Skin cancer Mohs surgery
Allergy History:
No Known Allergies Allergy (Verified 12/09/24 08:34)
Medications Reviewed: Yes
Current Antibiotics:
Vancomycin
Cefepime
Social History
Tobacco: Non-Smoker
Alcohol: None
Drug: None
Living: [facility]
Family History
Family History: Not Pertinent
Review of Systems
Review of Systems
General: Change in Appetite; Negative Chills
HEENT: Negative Sinus Problems, Headache or Pharyngitis
Cardiovascular: Dyspnea; Negative Chest Pain
Respiratory: Dyspnea; Negative Cough
Gasteroenterology: Negative Nausea, Vomiting or Diarrhea
Genital / Urological: Negative Dysuria or Flank Pain
Endocrine: Weakness
All systems: All other systems were reviewed and were negative
Vital Signs
Temp Pulse Resp BP Pulse Ox
98.6 F 108 29 103/51 96
12/09/24 13:16 12/09/24 13:45 12/09/24 13:45 12/09/24 13:00 12/09/24 13:45
Selected Entries
12/09/24
08:31
Temp 102.3 F H
Physical Exam
Physical Exam
Constitutional: Chronically Ill
Head: Other (No frontal or maxillary sinus tenderness)
Eyes: No Conjunctival Hemorrhage and Sclera Anicteric
Cardiovascular: Irregular Rate and Other (Tachycardic)
Pulmonary: Rales (Minimal crackles left base)
Gastrointestinal: Soft, Non Tender, Non Distended and Normal Bowel Sounds
Genito-Urinary: Negative Suprapubic Tenderness or CVA Tenderness
Extremities: Venous Insufficiency; Negative Edema
Wound: Other (Skin tears noted on knees, left calf, right posterior shoulder without surrounding erythema)
Neurological: AO x 3; Negative Meningeal Signs
Lines: HD Cath (RCW no erythema)
Lab / Diagnostic Study Results
12/09/24 08:40
Abs Immat Gran (auto) 1.1 10^3/uL (0-0.05) H 12/09/24 08:40
Absolute Neuts (auto) 16.9 10^3/uL (1.4-6.5) H 12/09/24 08:40
Absolute Lymphs (auto) 0.2 10^3/uL (1.2-3.4) L 12/09/24 08:40
Absolute Monos (auto) 0.6 10^3/uL (0.1-0.6) 12/09/24 08:40
Absolute Basos (auto) 0.1 10^3/uL (0-0.2) 12/09/24 08:40
Immature Gran % 5.9 % (0-0.5) H 12/09/24 08:40
Neutrophils % 89.7 % (42.2-75.2) H 12/09/24 08:40
Lymphocytes % 1.2 % (20.5-51.1) L 12/09/24 08:40
Monocytes % 2.9 % (1.7-9.3) 12/09/24 08:40
Eosinophils % 0.0 % (0-6) 12/09/24 08:40
Basophils % 0.3 % (0-2) 12/09/24 08:40
PT 17.5 Sec (11.4-14.6) H 12/09/24 08:40
INR 1.40 12/09/24 08:40
Lactic Acid 4.8 mmol/L (0.7-2.0) H* 12/09/24 08:40
Microbiology Results
Micro:
12/09/24 08:40 Blood Culture - Pending
Blood/Venous
12/09/24 08:40 Blood Culture - Pending
Blood/Venous
12/09 CXR: Limited study. Findings are consistent with changes of COPD
12/09 Left Tib/fib: There is chondrocalcinosis of the knee. There are prominent vascular calcifications. There is no definite radiographic evidence of osteomyelitis
Assessment / Plan
# Sepsis: fever, leukocytosis, elevated lactic acidosis
# New onset afib
# ESRD on HD via catheter
- CXR: COPD
- Follow bcx's to assess for CLABSI
- Continue empiric Vancomycin and cefepime.
- Trend temps/WBC/lactic acid.
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
Diabetes mellitus
Liver cirrhosis with ascites
End-stage renal disease on hemodialysis
MDS with pancytopenia
Hypothyroidism
COPD
HLD
Venous insufficiency
R hallux amputation
Skin cancer Mohs surgery
[2024-12-09 14:42] LABS: Lactic Acid 1.4 mmol/L (0.7-2.0)
--- NOTE | 2024-12-09 15:32 | PHA.VAN.IN ---
Assessment
- Assessment
Renal Function: Patient has ESRD, on chronic Hemodialysis
Hemodialysis Schedule: MWF
Concomitant Antimicrobials: cefepime
Plan
- Plan
Initial / Loading Dose: 1500mg - 12/09 09:57
Maintenance Regimen: dosing by level / HD
Monitoring: random 12/10 06
Pharmacokinetics Vancomycin I
- -
Patient Age: 84
Patient Sex: Female
Vancomycin Day #: 1
Indication: Skin And Soft Tissue
Requesting Provider: Dr. Gibson / Jossue
Pertinent Antimicrobial Allergies:
NKDA
Height / Weight:
Height 5 ft 4 in
Actual Weight 57 kg
Pertinent Past Medical History: DM, ESRD HD MWF
- Vital Signs / Lab Results
Temp Pulse Resp BP Pulse Ox
98.6 F 108 29 103/51 96
12/09/24 13:16 12/09/24 13:45 12/09/24 13:45 12/09/24 13:00 12/09/24 13:45
Lab Results - Hematology
12/09/24
08:40
WBC 18.9 H
Lab Results - Chemistry
12/09/24
08:40
BUN 33 H
Creatinine 3.5 H
Estimated Creat Clear 10
Albumin 3.1 L
12/09/24 12/09/24 12/09/24
08:32 08:40 14:21
Lactic Acid Cancelled 4.8 H* 1.4
[2024-12-09 15:35] LABS: TSH Reflex To Free T4 0.79 uIU/ml (0.47-4.68)
--- NOTE | 2024-12-09 15:49 | WOUNDNOTE ---
L GREAT TOE AMP SITE
--- NOTE | 2024-12-09 15:50 | WOUNDNOTE ---
L UPPER LATERAL ARM
--- NOTE | 2024-12-09 15:51 | WOUNDNOTE ---
L MEDIAL AND POSTERIOR KNEE
--- NOTE | 2024-12-09 15:52 | WOUNDNOTE ---
L MEDIAL LOWER LEG NEAR KNEE
--- NOTE | 2024-12-09 15:55 | WOUNDNOTE ---
WON RN note: Patient admitted with sepsis, new onset Atrial fibrillation.
See H&P for complete history. From [facility].
PMH: ESRD (HD in am), anemia, hypotension, thrombocytopenia, leg wounds and cirrhosis of liver.
Wound Location and type/assessment: Patient known to service, last seen 07/13/22 by wound care for leg wounds. Today assessed along with Dr. Marcum at bedside and nurse Mariano. Patient turned self to sides, sacrum and heels are blanchable red. Scattered
skin tears and abrasions to knees, legs and arms. None appear to be infected, mostly dry and scabbed with exception of L upper lateral arm, base pink, small drainage.
Appetite: Currently poor, patient vomited during assessment, nurse aware.
Pressure redistribution devices in place: Centrella air, heels off-loaded on pillows, able to turn self in bed.
Plan: Local wound care provided to all wounds, adaptic and silicone foam used. Protective foams applied to sacrum and heels. Updated RN on wound care, will confirm orders with hospitalist. Updated care plan and will follow as needed.
Note to case management of equipment requested for discharge: TBD.
Recommend follow up at wound care center upon discharge.
[2024-12-09 16:02] LABS: Hematocrit 30.8 % (37.0-47.0); Hemoglobin 10.1 g/dL (12.0-16.0); Mean Corp Hgb Conc. 32.8 g/dL (33.0-37.0); Mean Corpuscular Hgb 33.4 pg (27.0-31.0); Mean Platelet Volume 11.4 fL (7.4-10.4); Platelet Count 89 10^3/uL (130-400); Red Blood Cell Count 3.02 10^6/uL (4.20-5.40); Red Cell Dist. Width 15.5 % (11.5-14.5); White Blood Cell Count 17.8 10^3/uL (4.8-10.8)
[2024-12-09 16:09] LABS: APTT 33.4 Sec (23.4-35.0)
[2024-12-09] MEDS: NOVOLOG FLEXPEN-LOW RESISTANCE SC (16:21)
[2024-12-09] MEDS: PHOSLO PO (16:22)
[2024-12-09] MEDS: PHOSLO 667 MG PO (17:01)
[2024-12-09] MEDS: NSS 1000 IV (17:01)
--- NOTE | 2024-12-09 17:06 | PTCARENOTE ---
Patient received from ED. Patient JHONNYO, CLINTS. Complaints of pain in abdomen. NSS to be started @ 60mL/hr. Currently on 4L N/C due to some desaturations and shortness of breath, will wean as tolerated. Spoke with cardiology, ok to no initial
heparin gtt ordered while in ED and start Eliquis tonight. Admission questions done. Oriented to room. No tests at this time. Call macdonald in reach.
[2024-12-09 17:16] LABS: Glucose - Point of Care 207 mg/dl (70-99)
[2024-12-09] MEDS: NOVOLOG FLEXPEN-LOW RESISTANCE 2 UNITS SC (18:30)
[2024-12-09] MEDS: LAC HYDRIN, AM LACTIN LOTION 1 APPLIC TOPICAL (21:19)
[2024-12-09] MEDS: LIPITOR 10 MG PO (21:21)
[2024-12-09] MEDS: ELIQUIS 2.5 MG PO (21:38)
[2024-12-09 21:53] LABS: Glucose - Point of Care 200 mg/dl (70-99)
[2024-12-09] MEDS: LANTUS 0.05 UNITS SC (23:00)
[2024-12-10] VITALS (20 sets, daily range): BP systolic 88–125; BP diastolic 41–80; PULSE 100–152; O2SAT 100; BMI 21.1
[2024-12-10] MEDS: ZOFRAN 4 MG IV ×2 (03:14→11:55)
--- NOTE | 2024-12-10 05:54 | PTCARENOTE ---
Assumed care of pt from manuel RN. Pt aaox3, MARY'S IGLOO and forgetful. afib on monitor. 95% on 3L NC. IVONNE medications administered. Assessment and vitals as documented. Pt had several large liquid bowel movements. CHG wipes and complete bed change
completed. Pt resting in bed with call macdonald in reach.
[2024-12-10] MEDS: SYNTHROID 75 MCG PO (06:40)
[2024-12-10 08:13] LABS: Glucose - Point of Care 208 mg/dl (70-99)
[2024-12-10] MEDS: NOVOLOG FLEXPEN-LOW RESISTANCE 2 UNITS SC (08:18)
[2024-12-10] MEDS: B COMPLEX w/VITAMIN C 1 CAPLET PO (08:21)
[2024-12-10] MEDS: ELIQUIS 2.5 MG PO ×2 (08:21→20:32)
[2024-12-10] MEDS: ProAmatine PO (08:22)
[2024-12-10] MEDS: LAC HYDRIN, AM LACTIN LOTION 1 APPLIC TOPICAL ×2 (08:22→20:33)
--- NOTE | 2024-12-10 08:22 | W.PN.CD ---
Today's Communication / Plan
-
Cont Eliquis
Trend tele
2/2 Blood cx's positive
Impression / Plan
-
Sepsis: 2/2 blood cx's positive
-source unknown; recent HD catheter infection
-getting ABX
-ID is consulted
AFIB: unknown type and onset
-rate is slightly high in the setting of acute illness, no symptoms- BP runs low. Would not add rate-control meds at this time- rate acceptable for circumstance. Monitor rhythm and rate as she is treated for underlying illness.
-[id number] score is 6 for age, female, Hx CVA, DM. Patient denies bleeding issues or falls. She does have thrombocytopenia and anemia. Monitor closely. Heparin drip initiated, which requires intensive monitoring. Can change to Eliquis tonight.
Dose is 2.5 mg PO BID.
-TSH normal
- once Sepsis resolved/resolving can start rate control medications; although without infection her HR may be <100
ESRD on HD:
-management per nephro
Hx cirrhosis
Subjective: feeling better today
Physical Exam
Vital Signs/Labs
Vital Signs
Temp Pulse Resp BP Pulse Ox
98.0 F 113 19 125/67 94
12/10/24 03:19 12/10/24 08:01 12/10/24 08:01 12/10/24 08:01 12/10/24 08:15
12/09/24 12/10/24 12/11/24
06:59 06:59 06:59
Actual Weight 123 lb 0.287 oz
PT 17.5 Sec (11.4-14.6) H 12/09/24 08:40
INR 1.40 12/09/24 08:40
APTT 33.4 Sec (23.4-35.0) 12/09/24 15:47
Physical Exam
Constitutional: No acute distress
EENT: Anicteric
Cardiovascular: Pedal edema is absent and Rhythm/rate is irregular
Respiratory: Respiratory effort normal and Lungs clear to auscul.
GI: Soft
Neuro/Psych: Alert and Oriented
Data Reviewed
-
Date of Service: December 10, 2024
EKG: Tracing Personally Visualized and interpreted (af)
Echo: Report Reviewed by me
Labs: Labs Reviewed by me
[2024-12-10] MEDS: PHOSLO PO (09:29)
--- NOTE | 2024-12-10 09:37 | W.PN.ID1 ---
Date of Service
Date of Service: December 10, 2024
Today's Communication
See below.
Assessment / Plan
# GPC bacteremia x 2. Suspect CLABSI from HD catheter
# Sepsis: fever, leukocytosis, elevated lactic acidosis
# New onset afib
# ESRD on HD via catheter
-Repeat blood cx's.
-Ordered TTE
-Consider HD cath removal, cx tip
- Continue Vancomycin
- dc cefepime.
- Trend temps/WBC
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
Diabetes mellitus
Liver cirrhosis with ascites
End-stage renal disease on hemodialysis
MDS with pancytopenia
Hypothyroidism
COPD
HLD
Venous insufficiency
R hallux amputation
Skin cancer Mohs surgery
Chief Complaint
-: Clinical Sepsis and Bacteremia
Subjective / Review of Systems
Feeling better today.
Vital Signs / Physical Exam
Vital Signs
Vital Signs
Temp Pulse Resp BP Pulse Ox
97.8 F 108 25 125/67 98
12/10/24 07:30 12/10/24 09:00 12/10/24 09:00 12/10/24 08:01 12/10/24 09:19
Physical Exam
Constitutional: No Acute Distress
Cardiovascular: Regular Rate and S1/S2
Pulmonary: Clear
Gastrointestinal: Soft, Non Tender, Non Distended and Normal Bowel Sounds
Extremities: Venous Insufficiency; Negative Edema
Neurological: AO x 3
Lines: PICC (RCW no erythema)
Objective Data
Lab Data
PT 17.5 Sec (11.4-14.6) H 12/09/24 08:40
INR 1.40 12/09/24 08:40
APTT 33.4 Sec (23.4-35.0) 12/09/24 15:47
Estimated Creat Clear 10 ml/min 12/09/24 08:40
Lactic Acid 1.4 mmol/L (0.7-2.0) 12/09/24 14:21
Total Bilirubin 1.1 mg/dl (0.2-1.3) 12/09/24 08:40
AST 25 U/L (14-36) 12/09/24 08:40
ALT 19 U/L (0-35) 12/09/24 08:40
Alkaline Phosphatase 109 U/L (38-126) 12/09/24 08:40
Most recent labs reviewed.
Micro Results:
12/09/24 08:40 Blood Culture - Preliminary
Blood/Venous Positive culture in progress
12/09/24 08:40 Blood Culture - Preliminary
Blood/Venous Positive culture in progress
12/09/24 15:30 C. difficile GDH Antigen & Toxins - Final
Feces/Stool Negative for toxigenic C.difficile
12/09/24 15:47 MRSA Screen - Pending
Nose
12/09 CXR: Limited study. Findings are consistent with changes of COPD
12/09 Left Tib/fib: There is chondrocalcinosis of the knee. There are prominent vascular calcifications. There is no definite radiographic evidence of osteomyelitis
Care Review
Plan reviewed with: Physician (Dr. Lema)
--- NOTE | 2024-12-10 11:30 | PTCARENOTE ---
Patient c/o nausea, vomited dark brown liquid. Zofran given.
[2024-12-10 11:51] LABS: Glucose - Point of Care 172 mg/dl (70-99)
[2024-12-10] MEDS: ProAmatine 5 MG PO (11:54)
[2024-12-10] MEDS: NOVOLOG FLEXPEN-LOW RESISTANCE 1 UNITS SC (11:54)
[2024-12-10] MEDS: PHOSLO 667 MG PO ×2 (11:55→16:34)
[2024-12-10 13:22] LABS: Hematocrit 30.7 % (37.0-47.0); Hemoglobin 10.1 g/dL (12.0-16.0); Mean Corp Hgb Conc. 32.9 g/dL (33.0-37.0); Mean Corpuscular Hgb 33.2 pg (27.0-31.0); Mean Platelet Volume 10.7 fL (7.4-10.4); Platelet Count 107 10^3/uL (130-400); Red Blood Cell Count 3.04 10^6/uL (4.20-5.40); Red Cell Dist. Width 15.4 % (11.5-14.5); White Blood Cell Count 14.4 10^3/uL (4.8-10.8)
[2024-12-10] MEDS: TYLENOL 325 MG PO (13:35)
[2024-12-10 13:41] LABS: Vancomycin Random 15.4 ug/ml
[2024-12-10 14:02] LABS: Blood Urea Nitrogen 58 mg/dl (7-17); Calcium 8.1 mg/dl (8.4-10.2); Carbon Dioxide 21 mmol/L (22-30); Chloride 103 mmol/L (98-107); Estimated Creatinine Clearance 8 ml/min; Glucose 163 mg/dl (70-99); Magnesium 2.2 mg/dl (1.6-2.3); Potassium 3.7 mmol/L (3.5-5.1); Sodium 135 mmol/L (135-145); eGFR 9.65
[2024-12-10 14:15] LABS: Glycohemoglobin (HgbA1c) 6.7 % (4.0-5.6)
--- NOTE | 2024-12-10 14:21 | W.PN.NEPH.HD ---
Assessment
-
Patient seen on dialysis
Systolic blood pressure stable at current U/F
Now on ceftriaxone for strep pyogenes bacteremia
Dialysis catheter may have to be removed will consult with infectious disease
Progress Note - Hemodialysis
-
Date of Service: December 10, 2024
Duration: 30 minutes and 3 hours
Potassium Bath: 3
Calcium Bath: 2.5
Opti-Dialyzer: 160
Blood Flow: 400
Dialysate Flow: 600
Heparin: None
[2024-12-10 14:26] LABS: NT-proBNP > 27000 pg/ml
--- NOTE | 2024-12-10 14:57 | W.PN.HOSP.TC ---
Today's Communication/Plan
-
repeat blood culture
IR consult for paracentesis.
Assessment / Plan
Assessment / Plan
Impression:
Patient is a pleasant 84 years old with history of end-stage renal disease on hemo-doalysis MWF, history of hyperlipidemia, cirrhosis, ascites, hypothyroidism who came to the ER from nursing facility for evaluation of change in her status, low
oxygen sat, patient seen and examined at bedside, does not recall why she came to the hospital, but she is awake and oriented now.
Patient also noted to have A-fib with RVR in the ER and she denies history of A-fib in the past.
Patient was not feeling well for last 3 days, in the ER patient noted to have evidence of severe sepsis with lactic acidosis, started on cefepime and Vanco.
Patient seen and examined at bedside, denies chest pain or shortness of breath, complaining of lower abdominal discomfort, bilateral lower extremity which showed superficial wounds, patient does not recall any falls.
Blood culture came back positive for Streptococcus pyogenes.
Infectious disease recommending repeat BC.
Assessment/plan:
Severe sepsis with acute organ dysfunction/lactic acidosis
Streptococcus pyogenes bacteremia
Acute metabolic encephalopathy
Patient meets sepsis criteria on admission
Heart rate 112
WBCs 18.9
Respiratory rate 36
Temperature 102.3
Source of infection is (possible lower extremity wound, cannot rule out HD catheter as a source)
Avoid IV fluid as per nephrology commendations
IV antibiotic in form of vancomycin/cefepime
Blood culture pending
Urine culture pending
Consult infectious disease
12/10
Blood culture came back positive for Streptococcus pyogenes.
Infectious disease recommending repeat BC
Consider HD removal
New onset A-fib with RVR
Patient said no history of A-fib in the past
Possibly secondary to sepsis
Started heparin drip---> then Eliquis 2.5 BID
Blood pressure is soft, limited options for rate control.
Cardiology consulted
Echocardiogram 12/09
Left ventricle is small in size with normal systolic function. LVEF 55-60%.
Biatrial enlargement.
Mild mitral regurgitation.
Mild tricuspid regurgitation. Normal PASP.
PFO/ASD with [id number] shunt.
quality assurance monitor body
End-stage renal disease on hemodialysis.
Appreciate nephrology input.
History of liver cirrhosis/ascites
Patient with history of ascites and outpatient paracentesis.
Last paracentesis done was 11/03
Plan for IR consult for paracentesis
Anemia of chronic disease
Continue to monitor hemoglobin.
No indication for transfusion
History of insulin-dependent diabetes mellitus
Continue home medication
Insulin sliding scale
Diabetic diet
Hemoglobin A1c 6.7
History of hyperlipidemia.
Continue statin
History of hypothyroidism.
Continue Synthroid
CODE STATUS: Full code
DVT prophylaxis: Eliquis
Diet: DM diet
Disposition: repeat blood culture
IR consult for paracentesis.
Total time spent on today's encounter was 65 minutes which included time spent in counseling the patient/family regarding diagnosis and treatment plan as listed above, goals of care, and symptom management. Case was discussed with nursing staff,
specialists, and care coordinators/case management. All labs and imaging personally reviewed by me. Remainder the time spent in detailed review of previous records, lab data, imaging, and other medical provider documentation.
Anticipated Discharge: > 48 hours
Subjective/Interval History
-
Date of Service: December 10, 2024
Patient seen and examined at bedside, denies any chest pain or shortness of breath, had 1 episode of vomiting.
Noted to have abdominal ascension, paracentesis ordered.
Positive blood culture.
Objective Data
-
Labs:
Laboratory Results
12/10/24
12:52
WBC 14.4 H
Hgb 10.1 L
Hct 30.7 L
Plt Count 107 L D
Sodium 135
Potassium 3.7
Chloride 103
Carbon Dioxide 21 L
BUN 58 H
Creatinine 4.3 H*
Glucose 163 H
Calcium 8.1 L
Vital Signs:
Vital Signs
Temp Pulse Resp BP Pulse Ox
97.7 F 111 14 109/72 98
12/10/24 11:18 12/10/24 12:00 12/10/24 12:00 12/10/24 12:00 12/10/24 09:19
Physical Exam
-
General: Appears Chronically Ill
HEENT: Normocephalic, Atraumatic, Moist Mucous Membranes, No Ptosis, PERRLA and Nose Appears Normal
Respiratory: Rales, Rhonchi and Non Labored Respirations
Cardiac: S1/S2 and Irregular Rhythm
Breast: Deferred by me
GI: Soft, Nontender, Normal Bowel Sounds and Distended
Genito-urinary: No Costovertebral Tender
Musculoskeletal: No Clubbing, No Cyanosis and Other (Bilateral lower extremity wounds)
Skin: Warm and Lesions (Lesions on legs, more on the left)
Neuro: Awake, Alert and Oriented
Psych: Calm
Data Reviewed
-
Diagnostic Radiology: Image personally visualized and interpreted and Report Reviewed by me
CT Scan: Image personally visualized and interpreted and Report Reviewed by me
Ultrasound: Image personally visualized and interpreted and Report Reviewed by me
MRI: Image personally visualized and interpreted and Report Reviewed by me
Medical Tests (Nuc Med, Echo etc): Image personally visualized and interpreted and Report Reviewed by me
Labs: Labs Reviewed by me
Old Records: Reviewed
[2024-12-10] MEDS: RETACRIT 4000 UNITS IV (15:07)
[2024-12-10 15:50] LABS: Hepatitis B Surface Antigen Negative (Negative)
[2024-12-10] MEDS: HEPARIN 4000 UNITS INTRACATH (15:51)
--- NOTE | 2024-12-10 16:00 | CHAP ---
Fr[facility] Rogelio Hi of [facility] in [place] gave Alla the Sacrament of the Sick and Holy Communion. Exact time uncertain.
[2024-12-10 16:08] LABS: Hepatitis B Surface Antibody Negative
--- NOTE | 2024-12-10 16:29 | CM ---
Patient from [facility] with Hx ESRD on HD with Dx sepsis, new onset A-fib with RVR. O2 2L. Receiving IV Abx. Plan paracentesis. Seen by wound care nurse. PT/OT; requires assist of 2, recommend skilled rehab. Per nurse; forgetful.
Spoke with [facility] Am[facility];
the patient was there for short term rehab and not on a bed hold.
She required mod-max assst for ADLs and transfers and was ambulatory with a RW.
They are able to accept her back when medically ready.
Spoke with patient's daughter Misa;
the patient resides with her daughter at daughter's house in [place].
She goes to [facility] dialysis and daughter expressed concern if she could still go to outpt HD by car transport if she is less mobile.
Her pharmacy is [facility].
CM Consult: youngblood check Eliquis 2.5mg BID
Spoke with pharmacy, [facility]; they will not do youngblood check unless script is sent---> message to Karen Bourgeois.
Plan youngblood check Eliquis once e-script sent to pharmacy.
Plan return to [facility] when medically ready.
[2024-12-10] MEDS: ProAmatine 10 MG PO ×2 (16:34→20:33)
[2024-12-10] MEDS: ROCEPHIN 2000 MG IV (16:35)
[2024-12-10] MEDS: STERILE WATER FOR INJECTION 20 ML IV (16:35)
[2024-12-10 16:42] LABS: Glucose - Point of Care 103 mg/dl (70-99)
[2024-12-10] MEDS: NOVOLOG FLEXPEN-LOW RESISTANCE SC (16:56)
[2024-12-10] MEDS: LIPITOR 10 MG PO (20:32)
[2024-12-10] MEDS: LANTUS 0.05 UNITS SC (20:37)
[2024-12-10 20:48] LABS: Glucose - Point of Care 148 mg/dl (70-99)
--- NOTE | 2024-12-10 22:28 | PTCARENOTE ---
Assumed care of py from dayshift RN. Pt ox3, drowsy and COWLITZ. Afib on monitor. 94% on RA. IVONNE medications administered. Vitals and assessment as documented. Pt denies any pain, discomfort, nausea or vomiting. Hygiene completed including CHG wipes. Pt
resting in bed with call macdonald in reach.
[2024-12-11] VITALS (19 sets, daily range): BP systolic 89–136; BP diastolic 42–110; PULSE 122–155; O2SAT 96
[2024-12-11] MEDS: SYNTHROID 75 MCG PO (04:14)
[2024-12-11 05:06] LABS: Hematocrit 32.5 % (37.0-47.0); Hemoglobin 10.7 g/dL (12.0-16.0); Mean Corp Hgb Conc. 32.9 g/dL (33.0-37.0); Mean Corpuscular Volume 100.3 fL (81.0-99.0); Mean Platelet Volume 10.9 fL (7.4-10.4); Platelet Count 116 10^3/uL (130-400); Red Blood Cell Count 3.24 10^6/uL (4.20-5.40); Red Cell Dist. Width 14.9 % (11.5-14.5); White Blood Cell Count 12.1 10^3/uL (4.8-10.8)
[2024-12-11 05:19] LABS: ALT (SGPT) 14 U/L (0-35); AST (SGOT) 22 U/L (14-36); Albumin 2.8 g/dl (3.5-5.0); Alkaline Phosphatase 97 U/L (38-126); Blood Urea Nitrogen 27 mg/dl (7-17); Calcium 8.1 mg/dl (8.4-10.2); Carbon Dioxide 28 mmol/L (22-30); Chloride 102 mmol/L (98-107); Estimated Creatinine Clearance 16 ml/min; Glucose 135 mg/dl (70-99); Potassium 3.6 mmol/L (3.5-5.1); Sodium 138 mmol/L (135-145); Total Bilirubin 0.6 mg/dl (0.2-1.3); Total Protein 5.7 g/dl (6.3-8.2); eGFR 21.57
[2024-12-11 07:43] LABS: Glucose - Point of Care 131 mg/dl (70-99)
[2024-12-11] MEDS: NOVOLOG FLEXPEN-LOW RESISTANCE SC ×3 (09:22→18:01)
[2024-12-11] MEDS: ZOFRAN 4 MG IV (09:22)
[2024-12-11] MEDS: B COMPLEX w/VITAMIN C 1 CAPLET PO (09:22)
[2024-12-11] MEDS: VISBIOME 2 CAP PO (09:23)
[2024-12-11] MEDS: ELIQUIS 2.5 MG PO ×2 (09:23→19:50)
[2024-12-11] MEDS: PHOSLO 667 MG PO ×2 (09:23→18:02)
[2024-12-11] MEDS: ProAmatine 10 MG PO ×3 (09:23→22:04)
[2024-12-11] MEDS: LAC HYDRIN, AM LACTIN LOTION 1 APPLIC TOPICAL ×2 (09:24→19:51)
--- NOTE | 2024-12-11 10:27 | W.PN.CD ---
Today's Communication / Plan
-
- Rate remains mildly elevated at times, but unable to add rate-controlling medications secondary to hypotension (also, patient is on midodrine).
- Continue antibiotics and supportive care.
Impression / Plan
-
Sepsis: 2/2 blood cx's positive
-source unknown; recent HD catheter infection
-ID is consulted; continue antibiotics.
New onset paroxysmal AFIB with RVR:
- LVEF 55-60%, mild MR/TR.
- Rate remains mildly elevated at times, but unable to add rate-controlling medications secondary to hypotension (also, patient is on midodrine).
- Continue antibiotics and supportive care.
- [id number] score is 6 for age, female, Hx CVA, DM. Patient denies bleeding issues or falls. She does have thrombocytopenia and anemia. Monitor closely.
- Continue Eliquis.
- TSH normal
- Once Sepsis resolved/resolving can try to start rate-controllinh medications if heart rates remain elevated.
ESRD on HD:
- Continue management as per nephro
Hx cirrhosis
Subjective: No cardiac complaints this a.m.
Physical Exam
Vital Signs/Labs
Vital Signs
Temp Pulse Resp BP Pulse Ox
98.1 F 128 18 100/71 94
12/11/24 07:05 12/11/24 04:02 12/11/24 04:02 12/11/24 04:02 12/10/24 22:12
12/10/24 12/11/24 12/12/24
06:59 06:59 06:59
Actual Weight 55.8 kg 52.7 kg
12/11/24 04:10
12/11/24 04:10
PT 17.5 Sec (11.4-14.6) H 12/09/24 08:40
INR 1.40 12/09/24 08:40
APTT 33.4 Sec (23.4-35.0) 12/09/24 15:47
Magnesium 2.2 mg/dl (1.6-2.3) 12/10/24 12:52
12/10/24
12:57
Spt-X-Rtokavinuuc Pept > 54988
Physical Exam
Constitutional: No acute distress and Comfortable
EENT: Anicteric
Cardiovascular: Pedal edema is absent, Systolic murmur absent, Rhythm/rate is irregular and S1S2 is normal
Respiratory: Respiratory effort normal, Wheeze Absent and Rhonchi Present (bibasilar)
GI: Soft
Neuro/Psych: AO x 3
Other: Skin (Warm, dry)
Data Reviewed
-
Date of Service: December 11, 2024
EKG: Tracing Personally Visualized and interpreted (Telemetry: Atrial fibrillation)
Echo: Report Reviewed by me (EF 55-60%, mild MR/TR, PASP 23 mmHg)
Medical Tests (PFT, Pathology etc): Discussed with Patient
Labs: Labs Reviewed by me
--- NOTE | 2024-12-11 10:54 | W.PN.NEPH.PH ---
Today's Communication / Plan
-
HD tomorrow
Assessment/Plan
-
Impression:
ESRD MWF ([facility])
Fever/leukocytosis/hypotension/hypoxic: sepsis
ESLD/cirrhosis
Dyslipidemia
Chronic hypotension on midodrine
Diabetes
Hyperphosphatemia
Hypothyroid
Left lower extremity wound
Tunneled HD IJ catheter
MDS
CLL
Plan:
HD tomorrow, of schedule this week
continue abx
continue midodrine chronically
-
-
Date of Service: December 11, 2024
CC / HPI / ROS
-
Chief Complaint:
ESRD
History of Present Illness:
tolerated HD yesterday
BP stable low on midodrine
abx for S pyogenes sepsis
Review of Systems:
no CP/SOB
Labs
-
Labs:
WBC 12.1 10^3/uL (4.8-10.8) H 12/11/24 04:10
RBC 3.24 10^6/uL (4.20-5.40) L 12/11/24 04:10
Hgb 10.7 g/dL (12.0-16.0) L 12/11/24 04:10
Hct 32.5 % (37.0-47.0) L 12/11/24 04:10
Plt Count 116 10^3/uL (130-400) L 12/11/24 04:10
Sodium 138 mmol/L (135-145) 12/11/24 04:10
Potassium 3.6 mmol/L (3.5-5.1) 12/11/24 04:10
Chloride 102 mmol/L (98-107) 12/11/24 04:10
Carbon Dioxide 28 mmol/L (22-30) 12/11/24 04:10
BUN 27 mg/dl (7-17) H 12/11/24 04:10
Creatinine 2.2 mg/dL (0.6-1.0) H 12/11/24 04:10
eGFR 21.57 12/11/24 04:10
Glucose 135 mg/dl (70-99) H 12/11/24 04:10
Calcium 8.1 mg/dl (8.4-10.2) L 12/11/24 04:10
Rri-Y-Jjwqucsbuwk Pept > 24724 pg/ml 12/10/24 12:57
Albumin 2.8 g/dl (3.5-5.0) L 12/11/24 04:10
Physical Exam
-
Vital Signs:
Vital Signs
Temp Pulse Resp BP Pulse Ox
98.1 F 128 18 100/71 94
12/11/24 07:05 12/11/24 04:02 12/11/24 04:02 12/11/24 04:02 12/10/24 22:12
Cardiovascular:: Irregular rate and rhythm
Respiratory:: Bilateral: Coarse
Lung Excursion:: Normal
Abdomen:: Nontender and Soft
Bowel Sounds:: Normal
Extremity Edema:: None: Bilateral:
--- NOTE | 2024-12-11 11:18 | CM ---
Addendum entered by Dotty Baca RN 12/11/24 12:58:
Spoke with daughter Misa; provided update cost of LTC beds at [facility] vs [facility]. Dtr spoke with [facility] and decided she would like her mother to go there.
Spoke with [facility]; they are able to accept the patient once dialysis is setup again at [facility]. Contact for their SNF going forward is [facility] Liaison ph [phone].
Spoke with [facility] Mel[facility]; initiated 'readmission' referral with request for MWF 2nd shift. Sent clinical info and HD flowsheet via Fax.
Message to Dr Gibson: Need Hep B Total Core Antibody ordered please.
Plan follow up with [facility] for dialysis chair at [facility].
Plan [facility] SNF once medically ready and HD Chair confirmed.
Original Note:
Patient from [facility] SNF with Hx ESRD on HD with Dx sepsis, new onset A-fib with RVR. O2 2L. Receiving IV Abx. Plan paracentesis. Seen by wound care nurse. PT/OT; requires assist of 2, recommend skilled rehab. Per nurse; forgetful.
Met with patient and spoke with daughter Misa by phone;
Patient states she is interested in going to another SNF for rehab instead of [facility].
Daughter says she spoke with her mother about this yesterday and discouraged her from changing SNFs as her mother is almost out of SNF days under Medicare. Daughter may be interested in having her mother stay at SNF beyond the rehab period and pay
privately until she can make caregiver arrangements at home. Discussed alternate SNF options with in-house HD, as well as [facility] that will allow/provide transport to [facility]. Daughter wishes to speak with [facility] at [facility] to find out cost of intermediate manager care. Misa says patient was receiving good rehab at [facility] however she was not making good progress with PT/OT and was not ambulatory. She feels her mother has not accepted her current
functional status, however she does not want to dash her hope that she could improve.
Spoke with [facility]; the patient has 22 SNF days left. The cost of their LTC bed is $450/day and they do have an available [facility] bed.
Spoke with [facility]; the patient has used 78 SNF days at [facility] and unknown # days at [facility] before that. The cost of their LTC bed is $490/day and she will let the daughter know.
Plan follow up with daughter re; SNF options.
--- NOTE | 2024-12-11 13:48 | W.PN.ID1 ---
Date of Service
Date of Service: December 11, 2024
Today's Communication
- No need to dc HD catheter.
-Abx's de-escalated to ceftriaxone.
- At time of dc, will transition to po abx.
Assessment / Plan
# Group A streptococcus bacteremia x 2 sets.
. Suspect source from leg wounds.
# Fever resolved
# Leukocytosis trending down
# New onset afib
# ESRD on HD via catheter
-Repeat blood cx's pending
-TTE no vege
- No need to dc HD catheter.
-Abx's de-escalated to ceftriaxone.
- At time of dc, will transition to po abx.
- Trend WBC
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
Diabetes mellitus
Liver cirrhosis with ascites
End-stage renal disease on hemodialysis
MDS with pancytopenia
Hypothyroidism
COPD
HLD
Venous insufficiency
R hallux amputation
Skin cancer Mohs surgery
Chief Complaint
-: Clinical Sepsis and Bacteremia
Subjective / Review of Systems
Feeling much improved.
Vital Signs / Physical Exam
Vital Signs
Vital Signs
Temp Pulse Resp BP Pulse Ox
98.1 F 128 18 100/71 94
12/11/24 07:05 12/11/24 04:02 12/11/24 04:02 12/11/24 04:02 12/10/24 22:12
Physical Exam
Constitutional: No Acute Distress and Comfortable
Cardiovascular: Regular Rate and S1/S2
Pulmonary: Clear
Gastrointestinal: Soft, Non Tender, Non Distended and Normal Bowel Sounds
Genito-Urinary: Negative CVA Tenderness
Extremities: Negative Edema
Neurological: AO x 3
Lines: HD Cath (RCW no erythema)
Objective Data
Lab Data
Lab Results
12/11/24 04:10
12/11/24 04:10
PT 17.5 Sec (11.4-14.6) H 12/09/24 08:40
INR 1.40 12/09/24 08:40
APTT 33.4 Sec (23.4-35.0) 12/09/24 15:47
Estimated Creat Clear 16 ml/min 12/11/24 04:10
Lactic Acid 1.4 mmol/L (0.7-2.0) 12/09/24 14:21
Total Bilirubin 0.6 mg/dl (0.2-1.3) 12/11/24 04:10
AST 22 U/L (14-36) 12/11/24 04:10
ALT 14 U/L (0-35) 12/11/24 04:10
Alkaline Phosphatase 97 U/L (38-126) 12/11/24 04:10
Most recent labs reviewed.
Micro Results:
12/10/24 12:57 Blood Culture - Preliminary
Blood/Venous No Growth in 24 hours- Final report to follow
12/09/24 15:47 MRSA Screen - Final
Nose Staph aureus MRSA
12/10/24 13:52 Blood Culture - Pending
Blood/Venous
12/09/24 08:40 Blood Culture - Preliminary
Blood/Venous Streptococcus pyogenes
Gram Stain - Final
12/09/24 08:40 Blood Culture - Preliminary
Blood/Venous Streptococcus pyogenes
Gram Stain - Final
12/09/24 15:30 C. difficile GDH Antigen & Toxins - Final
Feces/Stool Negative for toxigenic C.difficile
12/09 CXR: Limited study. Findings are consistent with changes of COPD
12/09 Left Tib/fib: There is chondrocalcinosis of the knee. There are prominent vascular calcifications. There is no definite radiographic evidence of osteomyelitis
Care Review
Plan reviewed with: Physician (Dr. Gibson)
[2024-12-11 13:50] LABS: Glucose - Point of Care 134 mg/dl (70-99)
--- NOTE | 2024-12-11 14:04 | W.PN.HOSP.TC ---
Today's Communication/Plan
-
Continue antibiotic
IR consult for paracentesis.
Assessment / Plan
Assessment / Plan
Impression:
Patient is a pleasant 84 years old with history of end-stage renal disease on hemo-doalysis MWF, history of hyperlipidemia, cirrhosis, ascites, hypothyroidism who came to the ER from nursing facility for evaluation of change in her status, low
oxygen sat, patient seen and examined at bedside, does not recall why she came to the hospital, but she is awake and oriented now.
Patient also noted to have A-fib with RVR in the ER and she denies history of A-fib in the past.
Patient was not feeling well for last 3 days, in the ER patient noted to have evidence of severe sepsis with lactic acidosis, started on cefepime and Vanco.
Patient seen and examined at bedside, denies chest pain or shortness of breath, complaining of lower abdominal discomfort, bilateral lower extremity which showed superficial wounds, patient does not recall any falls.
Blood culture came back positive for Streptococcus pyogenes.
Infectious disease recommending repeat BC.
Repeat blood cultures remain negative, antibiotic de-escalated to ceftriaxone.
Ordered paracentesis
Assessment/plan:
Severe sepsis with acute organ dysfunction/lactic acidosis
Streptococcus pyogenes bacteremia
Acute metabolic encephalopathy
Patient meets sepsis criteria on admission
Heart rate 112
WBCs 18.9
Respiratory rate 36
Temperature 102.3
Source of infection is (possible lower extremity wound, cannot rule out HD catheter as a source)
Avoid IV fluid as per nephrology commendations
IV antibiotic in form of vancomycin/cefepime
Blood culture pending
Urine culture pending
Consult infectious disease
12/10
Blood culture came back positive for Streptococcus pyogenes.
Infectious disease recommending repeat BC
Consider HD removal
12/11
Repeat blood culture remains negative.
Infectious disease recommend not to remove HD
New onset A-fib with RVR
Patient said no history of A-fib in the past
Possibly secondary to sepsis
Started heparin drip---> then Eliquis 2.5 BID
Blood pressure is soft, limited options for rate control.
Cardiology consulted
Echocardiogram 12/09
Left ventricle is small in size with normal systolic function. LVEF 55-60%.
Biatrial enlargement.
Mild mitral regurgitation.
Mild tricuspid regurgitation. Normal PASP.
PFO/ASD with rvqu-qv-vsvru shunt.
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
End-stage renal disease on hemodialysis.
Appreciate nephrology input.
History of liver cirrhosis/ascites
Patient with history of ascites and outpatient paracentesis.
Last paracentesis done was 11/03
Plan for IR consult for paracentesis
Anemia of chronic disease
Continue to monitor hemoglobin.
No indication for transfusion
History of insulin-dependent diabetes mellitus
Continue home medication
Insulin sliding scale
Diabetic diet
Hemoglobin A1c 6.7
History of hyperlipidemia.
Continue statin
History of hypothyroidism.
Continue Synthroid
CODE STATUS: Full code
DVT prophylaxis: Eliquis
Diet: DM diet
Disposition: Continue antibiotic
IR consult for paracentesis.
Family communication: Discussed with daughter at bedside and in the phone
Total time spent on today's encounter was 65 minutes which included time spent in counseling the patient/family regarding diagnosis and treatment plan as listed above, goals of care, and symptom management. Case was discussed with nursing staff,
specialists, and care coordinators/case management. All labs and imaging personally reviewed by me. Remainder the time spent in detailed review of previous records, lab data, imaging, and other medical provider documentation.
Anticipated Discharge: > 48 hours
Subjective/Interval History
-
Date of Service: December 11, 2024
Patient seen and examined at bedside, overall improving except for diarrhea, ordered Imodium, denies any chest pain or shortness of breath.
Objective Data
-
Labs:
Laboratory Results
12/11/24
04:10
WBC 12.1 H
Hgb 10.7 L
Hct 32.5 L
Plt Count 116 L
Sodium 138
Potassium 3.6
Chloride 102
Carbon Dioxide 28
BUN 27 H
Creatinine 2.2 H
Glucose 135 H
Calcium 8.1 L
Total Bilirubin 0.6
AST 22
ALT 14
Alkaline Phosphatase 97
Vital Signs:
Vital Signs
Temp Pulse Resp BP Pulse Ox
98.1 F 128 18 100/71 94
12/11/24 07:05 12/11/24 04:02 12/11/24 04:02 12/11/24 04:02 12/10/24 22:12
I&O
12/10/24 12/11/24 12/12/24
06:59 06:59 06:59
Intake Total 240 / 240 240 / 240
Balance 240 / 240 240 / 240
Physical Exam
-
General: Appears Chronically Ill
HEENT: Normocephalic, Atraumatic, Moist Mucous Membranes, No Ptosis, PERRLA and Nose Appears Normal
Respiratory: Rales, Rhonchi and Non Labored Respirations
Cardiac: S1/S2 and Irregular Rhythm
Breast: Deferred by me
GI: Soft, Nontender, Normal Bowel Sounds and Distended
Genito-urinary: No Costovertebral Tender
Musculoskeletal: No Clubbing, No Cyanosis and Other (Bilateral lower extremity wounds)
Skin: Warm and Lesions (Lesions on legs, more on the left)
Neuro: Awake, Alert and Oriented
Psych: Calm
Data Reviewed
-
Diagnostic Radiology: Image personally visualized and interpreted and Report Reviewed by me
CT Scan: Image personally visualized and interpreted and Report Reviewed by me
Ultrasound: Image personally visualized and interpreted and Report Reviewed by me
MRI: Image personally visualized and interpreted and Report Reviewed by me
Medical Tests (Nuc Med, Echo etc): Image personally visualized and interpreted and Report Reviewed by me
Labs: Labs Reviewed by me
Old Records: Reviewed
[2024-12-11] MEDS: PHOSLO PO (14:51)
[2024-12-11] MEDS: ZOFRAN IV ×2 (14:52→18:02)
[2024-12-11] MEDS: ROCEPHIN 2000 MG IV (15:00)
[2024-12-11] MEDS: STERILE WATER FOR INJECTION 20 ML IV (15:00)
[2024-12-11 15:26] LABS: Body Fluid Mononuclear 74.2 %; Body Fluid Polymorphonuclear 25.8 %; Body Fluid WBC 62 /CUMM
[2024-12-11 15:29] LABS: Body Fluid Second Tech FB
[2024-12-11 15:35] LABS: Body Fluid Albumin < 1.0 g/dl; Body Fluid Amylase < 30 U/L; Body Fluid LDH 58 U/L; Body Fluid Protein 2.1 g/dl
[2024-12-11 18:00] LABS: Glucose - Point of Care 145 mg/dl (70-99)
[2024-12-11] MEDS: LIPITOR 10 MG PO (19:50)
[2024-12-11] MEDS: LANTUS 0.05 UNITS SC (22:02)
[2024-12-11 22:11] LABS: Glucose - Point of Care 144 mg/dl (70-99)
--- NOTE | 2024-12-11 23:21 | PTCARENOTE ---
assumed care of patient. pt is AAOx3- able to make needs known. VSS. a-fib on the monitor. 97% RA. pt denies any nausea, states her stomach feels a bit crampy, pt did have x3 inc. loose BM's tonight. pt given full CHG bed bath. oliguric. foams
replaced on legs and arms, sacrum foam replaced but patient continues to have loose stools. foam taken off at this time d/t getting soiled and cream applied until BM's slow down. able to take pills whole with water without issues. for HD in the AM,
pt made aware. care ongoing.
[2024-12-12] VITALS (29 sets, daily range): BP systolic 93–163; BP diastolic 38–146; BMI 18.4
[2024-12-12] MEDS: IMODIUM 2 MG PO (02:35)
[2024-12-12] MEDS: SYNTHROID 75 MCG PO (05:43)
[2024-12-12] MEDS: NOVOLOG FLEXPEN-LOW RESISTANCE SC ×3 (07:26→16:50)
[2024-12-12] MEDS: VISBIOME 2 CAP PO (07:27)
[2024-12-12] MEDS: B COMPLEX w/VITAMIN C 1 CAPLET PO (07:27)
[2024-12-12] MEDS: ELIQUIS 2.5 MG PO ×2 (07:27→20:03)
[2024-12-12] MEDS: ProAmatine 10 MG PO ×3 (07:27→21:44)
[2024-12-12] MEDS: PHOSLO PO (07:28)
[2024-12-12] MEDS: ZOFRAN IV ×2 (07:28→14:14)
[2024-12-12] MEDS: LAC HYDRIN, AM LACTIN LOTION 1 APPLIC TOPICAL ×2 (07:29→20:03)
[2024-12-12 07:35] LABS: Glucose - Point of Care 108 mg/dl (70-99)
--- NOTE | 2024-12-12 08:55 | W.PN.CD ---
Today's Communication / Plan
-
- Continue antibiotics and supportive care.
- Undergoing HD this a.m.
- Patient underwent paracentesis with 4000 cc removed yesterday.
- Heart rate slightly elevated at times; will hold off on adding any rate-controlling medications for now secondary to BP limitations (patient is on midodrine).
Impression / Plan
-
Sepsis: 2/2 blood cx's positive
-source unknown; recent HD catheter infection
-ID is consulted; continue antibiotics and supportive care.
New onset paroxysmal AFIB with RVR:
- LVEF 55-60%, mild MR/TR.
- Heart rate slightly elevated at times; will hold off on adding any rate-controlling medications for now secondary to BP limitations (patient is on midodrine).
- Continue antibiotics and supportive care.
- [id number] score is 6 for age, female, Hx CVA, DM. Patient denies bleeding issues or falls. She does have thrombocytopenia and anemia. Monitor closely.
- Continue Eliquis.
- TSH normal
- Once Sepsis resolved/resolving can try to start rate-controlling medications if heart rates remain elevated.
ESRD on HD:
- Continue management as per nephro
- Undergoing HD this a.m.
Hx cirrhosis/ascites:
- Patient underwent paracentesis with 4000 cc removed yesterday.
Subjective:
No major events overnight; no cardiac complaints this a.m.
Physical Exam
Vital Signs/Labs
Vital Signs
Temp Pulse Resp BP Pulse Ox
98.3 F 101 20 96/45 94
12/12/24 07:48 12/12/24 06:00 12/12/24 06:00 12/12/24 06:00 12/12/24 06:00
12/11/24 12/12/24 12/13/24
06:59 06:59 06:59
Actual Weight 52.7 kg 48.6 kg
PT 17.5 Sec (11.4-14.6) H 12/09/24 08:40
INR 1.40 12/09/24 08:40
APTT 33.4 Sec (23.4-35.0) 12/09/24 15:47
Magnesium 2.2 mg/dl (1.6-2.3) 12/10/24 12:52
12/10/24
12:57
[id number] Pept > [id number]
Physical Exam
Constitutional: No acute distress and Comfortable
EENT: Anicteric
Cardiovascular: Pedal edema is absent, Systolic murmur absent, Rhythm/rate is irregular and S1S2 is normal
Respiratory: Respiratory effort normal and Lungs clear to auscul.
GI: Soft
Neuro/Psych: AO x 3
Other: Skin (Warm, dry, intact)
Data Reviewed
-
Date of Service: December 12, 2024
EKG: Tracing Personally Visualized and interpreted (Telemetry: A-fib)
Echo: Report Reviewed by me (EF 55-60%, mild to moderate TR, PASP 23 mmHg)
Labs: Labs Reviewed by me
[2024-12-12] MEDS: MANNITOL 25% 12.5 GRAMS IV ×2 (09:05→10:46)
[2024-12-12] MEDS: FLEXBUMIN 25% FOR HEMODIALYSIS 12.5 GRAMS IV ×2 (09:21→10:46)
[2024-12-12 09:29] LABS: % Basophils 0.4 % (0-2); % Eosinophils 1.7 % (0-6); % Immature Granulocytes 0.7 % (0-0.5); % Lymphocytes 5.3 % (20.5-51.1); % Monocytes 6.7 % (1.7-9.3); % Neutrophils 85.2 % (42.2-75.2); Absolute Eosinophils 0.2 10^3/uL (0-0.7); Absolute Immature Granulocytes 0.1 10^3/uL (0-0.05); Absolute Lymphocytes 0.5 10^3/uL (1.2-3.4); Absolute Monocytes 0.6 10^3/uL (0.1-0.6); Hematocrit 30.8 % (37.0-47.0); Hemoglobin 10.2 g/dL (12.0-16.0); Mean Corp Hgb Conc. 33.1 g/dL (33.0-37.0); Mean Corpuscular Hgb 33.9 pg (27.0-31.0); Mean Corpuscular Volume 102.3 fL (81.0-99.0); Mean Platelet Volume 10.8 fL (7.4-10.4); Nucleated Red Blood Cells % 0 %; Platelet Count 134 10^3/uL (130-400); Red Blood Cell Count 3.01 10^6/uL (4.20-5.40); White Blood Cell Count 9.4 10^3/uL (4.8-10.8)
[2024-12-12 10:11] LABS: ALT (SGPT) 12 U/L (0-35); AST (SGOT) 17 U/L (14-36); Albumin 2.8 g/dl (3.5-5.0); Alkaline Phosphatase 85 U/L (38-126); Blood Urea Nitrogen 45 mg/dl (7-17); Calcium 8.1 mg/dl (8.4-10.2); Carbon Dioxide 25 mmol/L (22-30); Chloride 100 mmol/L (98-107); Estimated Creatinine Clearance 9 ml/min; Glucose 102 mg/dl (70-99); Potassium 3.3 mmol/L (3.5-5.1); Sodium 136 mmol/L (135-145); Total Bilirubin 0.5 mg/dl (0.2-1.3); Total Protein 5.6 g/dl (6.3-8.2); eGFR 12.79
--- NOTE | 2024-12-12 10:42 | PTCARENOTE ---
pt on hemodialysis currently. refused breakfast this am. currently afib on monitor heart rate 105. midodrine given pre dialysis. most recent bp93/62.
--- NOTE | 2024-12-12 10:47 | W.PN.ID1 ---
Date of Service
Date of Service: December 12, 2024
Today's Communication
- No need to dc HD catheter.
-Continue ceftriaxone (d4)
- At time of dc, transition to cefuroxime 500mg po q24 (afternoon) through 12/22/24.
Assessment / Plan
# Group A streptococcus bacteremia x 2 sets.
. Suspect source from leg wounds.
# Fever resolved
# Leukocytosis resolved
# New onset afib
# ESRD on HD via catheter
-Repeat blood cx's negative to date.
-TTE no vege
- No need to dc HD catheter.
-Continue ceftriaxone (d4)
- At time of dc, transition to cefuroxime 500mg po q24 (afternoon) through 12/22/24.
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
Diabetes mellitus
Liver cirrhosis with ascites
End-stage renal disease on hemodialysis
MDS with pancytopenia
Hypothyroidism
COPD
HLD
Venous insufficiency
R hallux amputation
Skin cancer Mohs surgery
Chief Complaint
-: Clinical Sepsis and Bacteremia
Subjective / Review of Systems
Feels well
Vital Signs / Physical Exam
Vital Signs
Vital Signs
Temp Pulse Resp BP Pulse Ox
98.3 F 119 21 109/63 95
12/12/24 07:48 12/12/24 10:00 12/12/24 10:00 12/12/24 10:00 12/12/24 10:26
Physical Exam
Constitutional: No Acute Distress and Chronically Ill
Pulmonary: Clear
Gastrointestinal: Soft, Non Tender and Non Distended
Wound: Other (leg wounds dressings dry)
Neurological: AO x 3
Lines: HD Cath (RCW no erythema)
Objective Data
Lab Data
Lab Results
12/12/24 07:55
12/12/24 07:55
PT 17.5 Sec (11.4-14.6) H 12/09/24 08:40
INR 1.40 12/09/24 08:40
APTT 33.4 Sec (23.4-35.0) 12/09/24 15:47
Estimated Creat Clear 9 ml/min 12/12/24 07:55
Lactic Acid 1.4 mmol/L (0.7-2.0) 12/09/24 14:21
Total Bilirubin 0.5 mg/dl (0.2-1.3) 12/12/24 07:55
AST 17 U/L (14-36) 12/12/24 07:55
ALT 12 U/L (0-35) 12/12/24 07:55
Alkaline Phosphatase 85 U/L (38-126) 12/12/24 07:55
Most recent labs reviewed.
Micro Results:
12/11/24 14:18 Body Fluid Culture - Preliminary
Peritoneal Fluid No Growth After 18-24 Hours
Gram Stain - Preliminary
12/10/24 13:52 Blood Culture - Preliminary
Blood/Venous No Growth in 24 hours- Final report to follow
12/10/24 12:57 Blood Culture - Preliminary
Blood/Venous No Growth in 24 hours- Final report to follow
12/09/24 15:47 MRSA Screen - Final
Nose Staph aureus MRSA
12/09/24 08:40 Blood Culture - Preliminary
Blood/Venous Streptococcus pyogenes
Gram Stain - Final
12/09/24 08:40 Blood Culture - Preliminary
Blood/Venous Streptococcus pyogenes
Gram Stain - Final
12/09/24 15:30 C. difficile GDH Antigen & Toxins - Final
Feces/Stool Negative for toxigenic C.difficile
12/09 CXR: Limited study. Findings are consistent with changes of COPD
12/09 Left Tib/fib: There is chondrocalcinosis of the knee. There are prominent vascular calcifications. There is no definite radiographic evidence of osteomyelitis
--- NOTE | 2024-12-12 11:14 | W.PN.NEPH.HD ---
Assessment
-
Seen on HD. no complaints. VSS, access ok. midodrine with HD. limited UF today
Progress Note - Hemodialysis
-
Date of Service: December 12, 2024
Duration: 30 minutes and 3 hours
Potassium Bath: 3
Calcium Bath: 2.5
Opti-Dialyzer: 160
Ultrafiltration: Other (1kg)
Blood Flow: 400
Dialysate Flow: 600
Heparin: 0
EPO: 0
[2024-12-12 12:09] LABS: Glucose - Point of Care 87 mg/dl (70-99)
--- NOTE | 2024-12-12 13:40 | CM ---
Addendum entered by Chastity Moncada 12/12/24 13:57:
Per [facility] patient only missing Hep B total core Antibody. CM will call to HD and determine if results available at this time.
Original Note:
Patient seen at bedside in IMU on HD. Per chart review application was sent to [facility] / fax [phone]. CM called and spoke with admissions re; pending application status. Patient status is still in review. CM will continue to
follow for discharge planning needs.
Plan; SNF and [facility] HD.
[2024-12-12] MEDS: PHOSLO 667 MG PO ×2 (14:15→16:00)
--- NOTE | 2024-12-12 14:50 | W.PN.HOSP.TC ---
Today's Communication/Plan
-
Continue compliance monitor.
Continue antibiotics
Assessment / Plan
Assessment / Plan
Impression:
Patient is a pleasant 84 years old with history of end-stage renal disease on hemo-doalysis MWF, history of hyperlipidemia, cirrhosis, ascites, hypothyroidism who came to the ER from nursing facility for evaluation of change in her status, low
oxygen sat, patient seen and examined at bedside, does not recall why she came to the hospital, but she is awake and oriented now.
Patient also noted to have A-fib with RVR in the ER and she denies history of A-fib in the past.
Patient was not feeling well for last 3 days, in the ER patient noted to have evidence of severe sepsis with lactic acidosis, started on cefepime and Vanco.
Patient seen and examined at bedside, denies chest pain or shortness of breath, complaining of lower abdominal discomfort, bilateral lower extremity which showed superficial wounds, patient does not recall any falls.
Blood culture came back positive for Streptococcus pyogenes.
Infectious disease recommending repeat BC.
Repeat blood cultures remain negative, antibiotic de-escalated to ceftriaxone.
Ordered paracentesis
Assessment/plan:
Severe sepsis with acute organ dysfunction/lactic acidosis
Streptococcus pyogenes bacteremia
Acute metabolic encephalopathy
Patient meets sepsis criteria on admission
Heart rate 112
WBCs 18.9
Respiratory rate 36
Temperature 102.3
Source of infection is (possible lower extremity wound, cannot rule out HD catheter as a source)
Avoid IV fluid as per nephrology commendations
IV antibiotic in form of vancomycin/cefepime
Blood culture pending
Urine culture pending
Consult infectious disease
12/10
Blood culture came back positive for Streptococcus pyogenes.
Infectious disease recommending repeat BC
Consider HD removal
12/11
Repeat blood culture remains negative.
Infectious disease recommend not to remove HD
12/12
Infectious disease recommending to continue Rocephin and discharged on Ceftin.
New onset A-fib with RVR
Patient said no history of A-fib in the past
Possibly secondary to sepsis
Started heparin drip---> then Eliquis 2.5 BID
Blood pressure is soft, limited options for rate control.
Cardiology consulted
Echocardiogram 12/09
Left ventricle is small in size with normal systolic function. LVEF 55-60%.
Biatrial enlargement.
Mild mitral regurgitation.
Mild tricuspid regurgitation. Normal PASP.
PFO/ASD with [id number]-lw-[id number] shunt.
radiation monitor
End-stage renal disease on hemodialysis.
Appreciate nephrology input.
History of liver cirrhosis/ascites
Patient with history of ascites and outpatient paracentesis.
Last paracentesis done was 11/03
Plan for IR consult for paracentesis
Anemia of chronic disease
Continue to monitor hemoglobin.
No indication for transfusion
History of insulin-dependent diabetes mellitus
Continue home medication
Insulin sliding scale
Diabetic diet
Hemoglobin A1c 6.7
History of hyperlipidemia.
Continue statin
History of hypothyroidism.
Continue Synthroid
CODE STATUS: Full code
DVT prophylaxis: Eliquis
Diet: DM diet
Disposition: Continue antibiotic
Follow with cardiology recommendation regarding A-fib.
Family communication: Discussed with daughter at bedside and in the phone
Total time spent on today's encounter was 65 minutes which included time spent in counseling the patient/family regarding diagnosis and treatment plan as listed above, goals of care, and symptom management. Case was discussed with nursing staff,
specialists, and care coordinators/case management. All labs and imaging personally reviewed by me. Remainder the time spent in detailed review of previous records, lab data, imaging, and other medical provider documentation.
Anticipated Discharge: 24 - 48 hours
Subjective/Interval History
-
Date of Service: December 12, 2024
Patient seen and examined at bedside, overall improving.
Denies any chest pain or shortness of breath, diarrhea improved, complaining of epigastric.
Objective Data
-
Labs:
Laboratory Results
12/12/24
07:55
WBC 9.4
Hgb 10.2 L
Hct 30.8 L
Plt Count 134
Sodium 136
Potassium 3.3 L
Chloride 100
Carbon Dioxide 25
BUN 45 H
Creatinine 3.4 H
Glucose 102 H
Calcium 8.1 L
Total Bilirubin 0.5
AST 17
ALT 12
Alkaline Phosphatase 85
Vital Signs:
Vital Signs
Temp Pulse Resp BP Pulse Ox
98.3 F 119 21 109/63 95
12/12/24 11:32 12/12/24 10:00 12/12/24 10:00 12/12/24 10:00 12/12/24 10:26
I&O
12/11/24 12/12/24 12/13/24
06:59 06:59 06:59
Intake Total 240 / 240 480 / 480
Balance 240 / 240 480 / 480
Physical Exam
-
General: Appears Chronically Ill
HEENT: Normocephalic, Atraumatic, Moist Mucous Membranes, No Ptosis, PERRLA and Nose Appears Normal
Respiratory: Rales, Rhonchi and Non Labored Respirations
Cardiac: S1/S2 and Irregular Rhythm
Breast: Deferred by me
GI: Soft, Nontender, Normal Bowel Sounds and Distended
Genito-urinary: No Costovertebral Tender
Musculoskeletal: No Clubbing, No Cyanosis and Other (Bilateral lower extremity wounds)
Skin: Warm and Lesions (Lesions on legs, more on the left)
Neuro: Awake, Alert and Oriented
Psych: Calm
Data Reviewed
-
Diagnostic Radiology: Image personally visualized and interpreted and Report Reviewed by me
CT Scan: Image personally visualized and interpreted and Report Reviewed by me
Ultrasound: Image personally visualized and interpreted and Report Reviewed by me
MRI: Image personally visualized and interpreted and Report Reviewed by me
Medical Tests (Nuc Med, Echo etc): Image personally visualized and interpreted and Report Reviewed by me
Labs: Labs Reviewed by me
Old Records: Reviewed
[2024-12-12] MEDS: ROCEPHIN 2000 MG IV (15:59)
[2024-12-12] MEDS: KCL ELIXIR 20 MEQ PO (15:59)
[2024-12-12] MEDS: STERILE WATER FOR INJECTION 20 ML IV (15:59)
[2024-12-12 16:49] LABS: Glucose - Point of Care 139 mg/dl (70-99)
[2024-12-12] MEDS: LIPITOR 10 MG PO (21:44)
[2024-12-12] MEDS: LANTUS 0.05 UNITS SC (21:52)
[2024-12-12 22:00] LABS: Glucose - Point of Care 128 mg/dl (70-99)
[2024-12-13] VITALS (14 sets, daily range): BP systolic 95–157; BP diastolic 46–145; BMI 18.7
[2024-12-13] MEDS: SYNTHROID 75 MCG PO (04:17)
[2024-12-13 05:01] LABS: Hemoglobin 10.4 g/dL (12.0-16.0); Mean Corp Hgb Conc. 31.5 g/dL (33.0-37.0); Mean Corpuscular Hgb 32.4 pg (27.0-31.0); Mean Corpuscular Volume 102.8 fL (81.0-99.0); Mean Platelet Volume 10.5 fL (7.4-10.4); Platelet Count 106 10^3/uL (130-400); Red Blood Cell Count 3.21 10^6/uL (4.20-5.40); Red Cell Dist. Width 14.7 % (11.5-14.5); White Blood Cell Count 6.4 10^3/uL (4.8-10.8)
[2024-12-13 05:16] LABS: ALT (SGPT) 11 U/L (0-35); AST (SGOT) 17 U/L (14-36); Alkaline Phosphatase 90 U/L (38-126); Blood Urea Nitrogen 17 mg/dl (7-17); Calcium 7.9 mg/dl (8.4-10.2); Carbon Dioxide 28 mmol/L (22-30); Chloride 100 mmol/L (98-107); Estimated Creatinine Clearance 17 ml/min; Glucose 149 mg/dl (70-99); Potassium 3.9 mmol/L (3.5-5.1); Sodium 136 mmol/L (135-145); Total Bilirubin 0.5 mg/dl (0.2-1.3); Total Protein 5.7 g/dl (6.3-8.2); eGFR 25.72
--- NOTE | 2024-12-13 05:35 | PTCARENOTE ---
Pt AAOx3, forgetful and withdrawn. Anxious at times. Pt HR was in the 160-170's Afib. Hospitals notified. Pt was given her amiodarone PO first and waited 1 hr. Pt HR got better, but remain high. Pt was order 5 mg IV metoprolol. Since then, pt HR
has been in mid 90-130's. SBP > 90. Pt has diminished B/L lung sounds. Shallow breathing, SaO2 94% RA. Occasional nonproductive moist cough. Pt has hyperactive BS. Pt has a few episodes of green mucus loose stools. Incontinence of urine and bowel.
Q2 turn as tolerated. Family at beside. Call macdonald within reach and will cont w/ tx plan.
--- NOTE | 2024-12-13 05:37 | PTCARENOTE ---
Pt AAOx3 pleasant. VSS. Afib in the monitor 80-120's. Lung sounds are diminished w/ fine crackles at the bases. SaO93% RA. Pt appears to have sleep apnea , desaturating to the 70's for a few seconds. shallow breathing. Pt incontinence of bowel ,
and oliguric. Abd round. Pt has been turning herself. Call macdonald within reach. Will cont w/ tx plan.
--- NOTE | 2024-12-13 08:22 | W.PN.CD ---
Today's Communication / Plan
-
start small dose of metoprolol tartrate and assess bp and hr response
Impression / Plan
-
Sepsis: 2/2 blood cx's positive
-source unknown; recent HD catheter infection
-ID is consulted; continue antibiotics and supportive care.
New onset paroxysmal AFIB with RVR:
- LVEF 55-60%, mild MR/TR.
- Heart rate went to 118-120 just moving around in bed, will need to trial a small dose of bb, may need to increase midodrine to accomadate.
- Continue antibiotics and supportive care.
- [id number] score is 6 for age, female, Hx CVA, DM. Patient denies bleeding issues or falls. She does have thrombocytopenia and anemia. Monitor closely.
- Continue Eliquis.
- TSH normal
ESRD on HD:
- Continue management as per nephro
Hx cirrhosis/ascites:
- Patient underwent paracentesis with 4000 cc removed yesterday.
Subjective:
No major events overnight; no cardiac complaints this a.m. While moving around in the bed the heart rate jumps to 118-120.
TTE: 12/09/24:
CONCLUSIONS
Left ventricle is small in size with normal systolic function. LVEF 55-60%.
Biatrial enlargement.
Mild mitral regurgitation.
Mild tricuspid regurgitation. Normal PASP.
PFO/ASD with pcnv-hz-suoga shunt.
Physical Exam
Vital Signs/Labs
Vital Signs
Temp Pulse Resp BP Pulse Ox
98.2 F 106 18 103/64 96
12/13/24 02:47 12/13/24 04:31 12/13/24 04:31 12/13/24 04:31 12/13/24 04:31
12/12/24 12/13/24 12/14/24
06:59 06:59 06:59
Actual Weight 107 lb 2.314 oz 108 lb 11.006 oz
12/13/24 04:19
12/13/24 04:19
PT 17.5 Sec (11.4-14.6) H 12/09/24 08:40
INR 1.40 12/09/24 08:40
APTT 33.4 Sec (23.4-35.0) 12/09/24 15:47
Magnesium 2.2 mg/dl (1.6-2.3) 12/10/24 12:52
12/10/24
12:57
[id number]-[id number] Pept > 91323
Physical Exam
Constitutional: No acute distress
Cardiovascular: Pedal edema is absent, JVD pressure is normal, Systolic murmur absent, Diastolic murmur absent and Rhythm/rate is irregular
Respiratory: Respiratory effort normal, Lungs clear to auscul., Wheeze Absent, Crackles Absent and Rhonchi Absent
Neuro/Psych: AO x 3
Data Reviewed
-
Date of Service: December 13, 2024
Medical Decision Making: Review of Case with other Provider (Dr Gibson adding low dose rate agent wmay need higher dose of midodrine)
--- NOTE | 2024-12-13 08:26 | W.PN.NEPH.PH ---
Today's Communication / Plan
-
Dialysis tomorrow
Assessment/Plan
-
Impression:
ESRD MWF ([facility]
Fever/leukocytosis/hypotension/hypoxic: sepsis
ESLD/cirrhosis
Dyslipidemia
Chronic hypotension on midodrine
Diabetes
Hyperphosphatemia
Hypothyroid
Left lower extremity wound
Tunneled HD IJ catheter
MDS
CLL
Plan:
HD tomorrow, of schedule this week, orders provided
continue abx
continue midodrine chronically
No fevers no leukocytosis
Remains on ceftriaxone for strep pyogenes
-
-
Date of Service: December 13, 2024
CC / HPI / ROS
-
Chief Complaint:
ESRD
History of Present Illness:
tolerated HD yesterday
BP stable low on midodrine
abx for S pyogenes sepsis
Review of Systems:
no CP/SOB
Labs
-
Labs:
WBC 6.4 10^3/uL (4.8-10.8) 12/13/24 04:19
RBC 3.21 10^6/uL (4.20-5.40) L 12/13/24 04:19
Hgb 10.4 g/dL (12.0-16.0) L 12/13/24 04:19
Hct 33.0 % (37.0-47.0) L 12/13/24 04:19
Plt Count 106 10^3/uL (130-400) L D 12/13/24 04:19
Sodium 136 mmol/L (135-145) 12/13/24 04:19
Potassium 3.9 mmol/L (3.5-5.1) 12/13/24 04:19
Chloride 100 mmol/L (98-107) 12/13/24 04:19
Carbon Dioxide 28 mmol/L (22-30) 12/13/24 04:19
BUN 17 mg/dl (7-17) 12/13/24 04:19
Creatinine 1.9 mg/dL (0.6-1.0) H 12/13/24 04:19
eGFR 25.72 12/13/24 04:19
Glucose 149 mg/dl (70-99) H 12/13/24 04:19
Calcium 7.9 mg/dl (8.4-10.2) L 12/13/24 04:19
Fti-M-Qsmcxjpoaea Pept > 16622 pg/ml 12/10/24 12:57
Albumin 3.0 g/dl (3.5-5.0) L 12/13/24 04:19
Physical Exam
-
Vital Signs:
Vital Signs
Temp Pulse Resp BP Pulse Ox
98.2 F 106 18 103/64 96
12/13/24 02:47 12/13/24 04:31 12/13/24 04:31 12/13/24 04:31 12/13/24 04:31
Cardiovascular:: Irregular rate and rhythm
Respiratory:: Bilateral: Coarse
Lung Excursion:: Normal
Abdomen:: Nontender and Soft
Bowel Sounds:: Normal
Extremity Edema:: None: Bilateral:
[2024-12-13 08:57] LABS: Glucose - Point of Care 119 mg/dl (70-99)
[2024-12-13] MEDS: ProAmatine 10 MG PO ×2 (10:23→17:58)
[2024-12-13] MEDS: B COMPLEX w/VITAMIN C 1 CAPLET PO (10:23)
[2024-12-13] MEDS: PHOSLO 667 MG PO ×3 (10:25→17:58)
[2024-12-13] MEDS: ELIQUIS 2.5 MG PO ×2 (10:25→21:21)
[2024-12-13] MEDS: VISBIOME 2 CAP PO (10:26)
[2024-12-13] MEDS: NOVOLOG FLEXPEN-LOW RESISTANCE SC ×2 (10:26→16:49)
[2024-12-13] MEDS: LAC HYDRIN, AM LACTIN LOTION 1 APPLIC TOPICAL ×2 (10:26→21:19)
[2024-12-13] MEDS: LOPRESSOR 12.5 MG PO ×2 (10:29→21:21)
--- NOTE | 2024-12-13 11:53 | W.PN.ID1 ---
Date of Service
Date of Service: December 13, 2024
Today's Communication
-Continue ceftriaxone (d5)
- At time of dc, transition to cefuroxime 500mg po q24 (afternoon) through 12/22/24.
Assessment / Plan
# Group A streptococcus bacteremia x 2 sets.
. Suspect source from leg wounds.
# Fever resolved
# Leukocytosis resolved
# New onset afib
# ESRD on HD via catheter
-Repeat blood cx's negative to date.
-TTE no vege
- No need to dc HD catheter.
-Continue ceftriaxone (d5)
- At time of dc, transition to cefuroxime 500mg po q24 (afternoon) through 12/22/24.
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
Diabetes mellitus
Liver cirrhosis with ascites
End-stage renal disease on hemodialysis
MDS with pancytopenia
Hypothyroidism
COPD
HLD
Venous insufficiency
R hallux amputation
Skin cancer Mohs surgery
Chief Complaint
-: Bacteremia
Subjective / Review of Systems
Doing well.
Vital Signs / Physical Exam
Vital Signs
Vital Signs
Temp Pulse Resp BP Pulse Ox
97.7 F 133 25 116/81 92
12/13/24 07:20 12/13/24 10:29 12/13/24 10:00 12/13/24 10:29 12/13/24 08:00
Physical Exam
Constitutional: No Acute Distress and Chronically Ill
Pulmonary: Clear
Gastrointestinal: Soft, Non Tender and Non Distended
Wound: Other (leg wounds dressings dry)
Neurological: AO x 3
Lines: HD Cath (RCW no erythema)
Objective Data
Lab Data
Lab Results
12/13/24 04:19
12/13/24 04:19
PT 17.5 Sec (11.4-14.6) H 12/09/24 08:40
INR 1.40 12/09/24 08:40
APTT 33.4 Sec (23.4-35.0) 12/09/24 15:47
Estimated Creat Clear 17 ml/min 12/13/24 04:19
Lactic Acid 1.4 mmol/L (0.7-2.0) 12/09/24 14:21
Total Bilirubin 0.5 mg/dl (0.2-1.3) 12/13/24 04:19
AST 17 U/L (14-36) 12/13/24 04:19
ALT 11 U/L (0-35) 12/13/24 04:19
Alkaline Phosphatase 90 U/L (38-126) 12/13/24 04:19
Most recent labs reviewed.
Micro Results:
12/11/24 14:18 Body Fluid Culture - Preliminary
Peritoneal Fluid No Growth After 48 Hours
Gram Stain - Preliminary
12/10/24 13:52 Blood Culture - Preliminary
Blood/Venous No Growth in 48 hours- Final report to follow
12/10/24 12:57 Blood Culture - Preliminary
Blood/Venous No Growth in 48 hours- Final report to follow
12/09/24 08:40 Blood Culture - Final
Blood/Venous Streptococcus pyogenes
Gram Stain - Final
12/09/24 08:40 Blood Culture - Final
Blood/Venous Streptococcus pyogenes
Gram Stain - Final
12/09/24 15:47 MRSA Screen - Final
Nose Staph aureus MRSA
12/09/24 15:30 C. difficile [facility]DH Antigen & Toxins - Final
Feces/Stool Negative for toxigenic C.difficile
12/09 CXR: Limited study. Findings are consistent with changes of COPD
12/09 Left Tib/fib: There is chondrocalcinosis of the knee. There are prominent vascular calcifications. There is no definite radiographic evidence of osteomyelitis
--- NOTE | 2024-12-13 12:08 | PTCARENOTE ---
Pt received from road cutter RN. Pt is Ox3 and appropriate. Worked with PT this morning, assisted OOB into the chair. While walking, pt's HR went into the 160's, maintained in the 120's while sitting and after 12.5 of PO Lopressor is now resting in
the 90's. Pt with some crackles at the bases, currently on RA. Oliguric, due to have HD tomorrow. Pt has a poor appetite, she is no longer having diarrhea. L knee skin tear reopened during PT, some bleeding from site, silicone border foam in place.
Call macdonald within reach, pt makes needs known.
[2024-12-13 13:02] LABS: Glucose - Point of Care 189 mg/dl (70-99)
--- NOTE | 2024-12-13 13:07 | W.PN.HOSP.TC ---
Today's Communication/Plan
-
Continue antibiotic
start low dose BB.
Assessment / Plan
Assessment / Plan
Impression:
Patient is a pleasant 84 years old with history of end-stage renal disease on hemo-doalysis MWF, history of hyperlipidemia, cirrhosis, ascites, hypothyroidism who came to the ER from nursing facility for evaluation of change in her status, low
oxygen sat, patient seen and examined at bedside, does not recall why she came to the hospital, but she is awake and oriented now.
Patient also noted to have A-fib with RVR in the ER and she denies history of A-fib in the past.
Patient was not feeling well for last 3 days, in the ER patient noted to have evidence of severe sepsis with lactic acidosis, started on cefepime and Vanco.
Patient seen and examined at bedside, denies chest pain or shortness of breath, complaining of lower abdominal discomfort, bilateral lower extremity which showed superficial wounds, patient does not recall any falls.
Blood culture came back positive for Streptococcus pyogenes.
Infectious disease recommending repeat BC.
Repeat blood cultures remain negative, antibiotic de-escalated to ceftriaxone.
Ordered paracentesis
Patient had 4000 cc removed
Cardiac recommending low-dose beta
Assessment/plan:
Severe sepsis with acute organ dysfunction/lactic acidosis
Streptococcus pyogenes bacteremia
Acute metabolic encephalopathy
Patient meets sepsis criteria on admission
Heart rate 112
WBCs 18.9
Respiratory rate 36
Temperature 102.3
Source of infection is (possible lower extremity wound, cannot rule out HD catheter as a source)
Avoid IV fluid as per nephrology commendations
IV antibiotic in form of vancomycin/cefepime
Blood culture pending
Urine culture pending
Consult infectious disease
12/10
Blood culture came back positive for Streptococcus pyogenes.
Infectious disease recommending repeat BC
Consider HD removal
12/11
Repeat blood culture remains negative.
Infectious disease recommend not to remove HD
12/12
Infectious disease recommending to continue Rocephin and discharged on Ceftin.
New onset A-fib with RVR
Patient said no history of A-fib in the past
Possibly secondary to sepsis
Started heparin drip---> then Eliquis 2.5 BID
Blood pressure is soft, limited options for rate control.
Cardiology consulted
Echocardiogram 12/09
Left ventricle is small in size with normal systolic function. LVEF 55-60%.
Biatrial enlargement.
Mild mitral regurgitation.
Mild tricuspid regurgitation. Normal PASP.
PFO/ASD with pxqp-mc-abuvm shunt.
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
12/13
Cardiology started low-dose beta sharda.
End-stage renal disease on hemodialysis.
Appreciate nephrology input.
History of liver cirrhosis/ascites
Patient with history of ascites and outpatient paracentesis.
Last paracentesis done was 11/03
Plan for IR consult for paracentesis
Anemia of chronic disease
Continue to monitor hemoglobin.
No indication for transfusion
History of insulin-dependent diabetes mellitus
Continue home medication
Insulin sliding scale
Diabetic diet
Hemoglobin A1c 6.7
History of hyperlipidemia.
Continue statin
History of hypothyroidism.
Continue Synthroid
CODE STATUS: Full code
DVT prophylaxis: Eliquis
Diet: DM diet
Disposition: Continue antibiotic
start low dose BB.
Total time spent on today's encounter was 65 minutes which included time spent in counseling the patient/family regarding diagnosis and treatment plan as listed above, goals of care, and symptom management. Case was discussed with nursing staff,
specialists, and care coordinators/case management. All labs and imaging personally reviewed by me. Remainder the time spent in detailed review of previous records, lab data, imaging, and other medical provider documentation.
Anticipated Discharge: 24 - 48 hours
Subjective/Interval History
-
Date of Service: December 13, 2024
Patient seen and examined at bedside, denies any chest pain or shortness of breath, no abdominal pain, no nausea, no vomiting, no diarrhea or constipation.
Cardiology started low-dose BB.
Objective Data
-
Labs:
Laboratory Results
12/13/24
04:19
WBC 6.4
Hgb 10.4 L
Hct 33.0 L
Plt Count 106 L D
Sodium 136
Potassium 3.9
Chloride 100
Carbon Dioxide 28
BUN 17
Creatinine 1.9 H
Glucose 149 H
Calcium 7.9 L
Total Bilirubin 0.5
AST 17
ALT 11
Alkaline Phosphatase 90
Vital Signs:
Vital Signs
Temp Pulse Resp BP Pulse Ox
98.1 F 133 25 116/81 92
12/13/24 11:20 12/13/24 10:29 12/13/24 10:00 12/13/24 10:29 12/13/24 08:00
I&O
12/12/24 12/13/24 12/14/24
06:59 06:59 06:59
Intake Total 480 / 480 240 / 240
Balance 480 / 480 240 / 240
Physical Exam
-
General: Appears Chronically Ill
HEENT: Normocephalic, Atraumatic, Moist Mucous Membranes, No Ptosis, PERRLA and Nose Appears Normal
Respiratory: Rales, Rhonchi and Non Labored Respirations
Cardiac: S1/S2, Irregular Rhythm and Tachycardic
Breast: Deferred by me
GI: Soft, Nontender, Normal Bowel Sounds and Distended
Genito-urinary: No Costovertebral Tender
Musculoskeletal: No Clubbing, No Cyanosis and Other (Bilateral lower extremity wounds)
Skin: Warm and Lesions (Lesions on legs, more on the left)
Neuro: Awake, Alert and Oriented
Psych: Calm
Data Reviewed
-
Diagnostic Radiology: Image personally visualized and interpreted and Report Reviewed by me
CT Scan: Image personally visualized and interpreted and Report Reviewed by me
Ultrasound: Image personally visualized and interpreted and Report Reviewed by me
MRI: Image personally visualized and interpreted and Report Reviewed by me
Medical Tests (Nuc Med, Echo etc): Image personally visualized and interpreted and Report Reviewed by me
Labs: Labs Reviewed by me
Old Records: Reviewed
[2024-12-13] MEDS: NOVOLOG FLEXPEN-LOW RESISTANCE 1 UNITS SC (13:09)
[2024-12-13] MEDS: ROCEPHIN 2000 MG IV (13:14)
[2024-12-13] MEDS: STERILE WATER FOR INJECTION 20 ML IV (13:14)
[2024-12-13 16:53] LABS: Glucose - Point of Care 134 mg/dl (70-99)
[2024-12-13 19:37] LABS: Hepatitis B Core Ab, Total Negative (Negative)
[2024-12-13] MEDS: ProAmatine PO (21:20)
[2024-12-13] MEDS: LIPITOR 10 MG PO (21:20)
[2024-12-13] MEDS: LANTUS 0.05 UNITS SC (21:20)
[2024-12-13 21:23] LABS: Glucose - Point of Care 164 mg/dl (70-99)
[2024-12-14] VITALS (30 sets, daily range): BP systolic 77–128; BP diastolic 39–106; BMI 18.9
--- NOTE | 2024-12-14 00:13 | PTCARENOTE ---
Assumed care of pt from manuel RN. Pt aaox3. afib on monitor, hr 90-110s. 98% on RA. Vitals crossed over from [id number]. Vitals and assessment as documented. Hygiene completed including CHG wipes and complete bed change. Pt resting in bed with
call macdonald in reach.
[2024-12-14] MEDS: SYNTHROID 75 MCG PO (05:14)
[2024-12-14 08:29] LABS: Glucose - Point of Care 91 mg/dl (70-99)
--- NOTE | 2024-12-14 09:10 | W.PN.CD ---
Today's Communication / Plan
-
Continue current metoprolol dose.
If HR sustained over 120 bpm, we will need to add amiodarone
Impression / Plan
-
Sepsis: 2/2 blood cx's positive
-diagnosis is a threat to life. IV abx require monitoring for drug toxicity
-Suspected source is leg wounds
-ID is consulted; continue antibiotics and supportive care.
New onset paroxysmal AFIB with RVR:
- LVEF 55-60%, mild MR/TR.
- Heart rate went to 118-120 just moving around in bed, will tolerate HR up to 120
- Continue Metoprolol 12.5mg BID. Further uptitration limited by hypotension
- If HR sustained over 120 bpm, we will need to add amiodarone. Not a candidate for digoxin due to NITHIN.
- Continue antibiotics and supportive care. Suspect this will resolve with treatment of sepsis.
- [id number] score is 6 for age, female, Hx CVA, DM. Patient denies bleeding issues or falls. She does have thrombocytopenia and anemia. Monitor closely.
- Continue Eliquis.
- TSH normal
ESRD on HD:
- Continue management as per nephro
Hx cirrhosis/ascites:
- Patient underwent paracentesis with 4000 cc removed this admission
Subjective: No major events overnight; no cardiac complaints this a.m. While moving around in the bed the heart rate jumps to 118-120.
Telemetry: Atrial fibrillation. HR is 90�100s.
TTE: 12/09/24:
CONCLUSIONS
Left ventricle is small in size with normal systolic function. LVEF 55-60%.
Biatrial enlargement.
Mild mitral regurgitation.
Mild tricuspid regurgitation. Normal PASP.
PFO/ASD with ixvw-ry-kdwif shunt.
Physical Exam
Vital Signs/Labs
Vital Signs
Temp Pulse Resp BP Pulse Ox
97.5 F 94 19 98/50 93
12/14/24 07:30 12/14/24 06:00 12/14/24 06:00 12/14/24 06:00 12/14/24 06:00
12/13/24 12/14/24 12/15/24
06:59 06:59 06:59
Actual Weight 108 lb 11.006 oz 110 lb 3.698 oz
PT 17.5 Sec (11.4-14.6) H 12/09/24 08:40
INR 1.40 12/09/24 08:40
APTT 33.4 Sec (23.4-35.0) 12/09/24 15:47
Magnesium 2.2 mg/dl (1.6-2.3) 12/10/24 12:52
12/10/24
12:57
Zxb-C-Bmyuxurthxu Pept > 31044
Physical Exam
Constitutional: No acute distress and Comfortable
Cardiovascular: Pedal edema is absent, Rhythm/rate is irregular, S1S2 is normal and Murmur/rub/gallop absent
Respiratory: Respiratory effort normal and Lungs clear to auscul.
Data Reviewed
-
Date of Service: December 14, 2024
Medical Decision Making: Reviewed Test Results, Independent Historian Assessment, Test Interpretation and Review of Case with other Provider
EKG: Tracing Personally Visualized and interpreted
Echo: Report Reviewed by me
Labs: Labs Reviewed by me
[2024-12-14] MEDS: NOVOLOG FLEXPEN-LOW RESISTANCE SC ×2 (09:28→18:31)
[2024-12-14] MEDS: ProAmatine 10 MG PO ×3 (09:30→20:43)
[2024-12-14] MEDS: VISBIOME 2 CAP PO (09:30)
[2024-12-14] MEDS: ELIQUIS 2.5 MG PO ×2 (09:30→20:43)
[2024-12-14] MEDS: PHOSLO 667 MG PO ×3 (09:30→16:24)
[2024-12-14] MEDS: B COMPLEX w/VITAMIN C 1 CAPLET PO (09:30)
[2024-12-14] MEDS: LAC HYDRIN, AM LACTIN LOTION 1 APPLIC TOPICAL ×2 (09:38→20:44)
[2024-12-14] MEDS: LOPRESSOR PO (09:39)
[2024-12-14] MEDS: IMODIUM 2 MG PO ×2 (10:27→20:47)
[2024-12-14 12:43] LABS: Glucose - Point of Care 165 mg/dl (70-99)
--- NOTE | 2024-12-14 12:47 | W.PN.NEPH.HD ---
Assessment
-
Patient seen on dialysis
Systolic blood pressure 112 at current UF set
Dialysis via tunneled catheter
Progress Note - Hemodialysis
-
Date of Service: December 14, 2024
Duration: 30 minutes and 3 hours
Potassium Bath: 3
Calcium Bath: 2.5
Opti-Dialyzer: 160
Ultrafiltration: EDW (Likely 0.5 to 1 kg)
Blood Flow: 400
Dialysate Flow: 600
Heparin: None
EPO: 4000
[2024-12-14 12:57] LABS: Hematocrit 31.8 % (37.0-47.0); Hemoglobin 10.3 g/dL (12.0-16.0); Mean Corp Hgb Conc. 32.4 g/dL (33.0-37.0); Mean Corpuscular Hgb 33.1 pg (27.0-31.0); Mean Corpuscular Volume 102.3 fL (81.0-99.0); Mean Platelet Volume 10.7 fL (7.4-10.4); Platelet Count 120 10^3/uL (130-400); Red Blood Cell Count 3.11 10^6/uL (4.20-5.40); Red Cell Dist. Width 14.8 % (11.5-14.5); White Blood Cell Count 4.9 10^3/uL (4.8-10.8)
[2024-12-14 13:09] LABS: Carbon Dioxide 28 mmol/L (22-30); Chloride 97 mmol/L (98-107); Sodium 133 mmol/L (135-145)
[2024-12-14] MEDS: RETACRIT IV (13:28)
[2024-12-14] MEDS: HEPARIN INTRACATH (13:28)
[2024-12-14] MEDS: NOVOLOG FLEXPEN-LOW RESISTANCE 1 UNITS SC (13:29)
[2024-12-14] MEDS: MANNITOL 25% 12.5 GRAMS IV ×2 (13:35→15:17)
[2024-12-14] MEDS: ProAmatine 5 MG PO (13:37)
[2024-12-14] MEDS: STERILE WATER FOR INJECTION 20 ML IV (13:41)
[2024-12-14] MEDS: ROCEPHIN 2000 MG IV (13:41)
[2024-12-14] MEDS: RETACRIT 4000 UNITS IV (14:14)
--- NOTE | 2024-12-14 14:19 | PTCARENOTE ---
bp 77 systolic. midodrine ordered and given. pt receiving hd. will monitor.
--- NOTE | 2024-12-14 15:29 | W.PN.HOSP.TC ---
Today's Communication/Plan
-
Continue antibiotic
monitor HR, consider Amiodarone.
Assessment / Plan
Assessment / Plan
Impression:
Patient is a pleasant 84 years old with history of end-stage renal disease on hemo-doalysis MWF, history of hyperlipidemia, cirrhosis, ascites, hypothyroidism who came to the ER from nursing facility for evaluation of change in her status, low
oxygen sat, patient seen and examined at bedside, does not recall why she came to the hospital, but she is awake and oriented now.
Patient also noted to have A-fib with RVR in the ER and she denies history of A-fib in the past.
Patient was not feeling well for last 3 days, in the ER patient noted to have evidence of severe sepsis with lactic acidosis, started on cefepime and Vanco.
Patient seen and examined at bedside, denies chest pain or shortness of breath, complaining of lower abdominal discomfort, bilateral lower extremity which showed superficial wounds, patient does not recall any falls.
Blood culture came back positive for Streptococcus pyogenes.
Infectious disease recommending repeat BC.
Repeat blood cultures remain negative, antibiotic de-escalated to ceftriaxone.
Ordered paracentesis
Patient had 4000 cc removed
Cardiac recommending low-dose beta sharda
Assessment/plan:
Severe sepsis with acute organ dysfunction/lactic acidosis
Streptococcus pyogenes bacteremia
Acute metabolic encephalopathy
Patient meets sepsis criteria on admission
Heart rate 112
WBCs 18.9
Respiratory rate 36
Temperature 102.3
Source of infection is (possible lower extremity wound, cannot rule out HD catheter as a source)
Avoid IV fluid as per nephrology commendations
IV antibiotic in form of vancomycin/cefepime
Blood culture pending
Urine culture pending
Consult infectious disease
12/10
Blood culture came back positive for Streptococcus pyogenes.
Infectious disease recommending repeat BC
Consider HD removal
12/11
Repeat blood culture remains negative.
Infectious disease recommend not to remove HD
12/12
Infectious disease recommending to continue Rocephin and discharged on Ceftin.
New onset A-fib with RVR
Patient said no history of A-fib in the past
Possibly secondary to sepsis
Started heparin drip---> then Eliquis 2.5 BID
Blood pressure is soft, limited options for rate control.
Cardiology consulted
Echocardiogram 12/09
Left ventricle is small in size with normal systolic function. LVEF 55-60%.
Biatrial enlargement.
Mild mitral regurgitation.
Mild tricuspid regurgitation. Normal PASP.
PFO/ASD with vvnp-rf-cixid shunt.
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
Cardiology started low-dose beta sharda.
12/14
Blood pressure soft, beta-sharda held, cardiology to consider amiodarone
End-stage renal disease on hemodialysis.
Appreciate nephrology input.
History of liver cirrhosis/ascites
Patient with history of ascites and outpatient paracentesis.
Last paracentesis done was 11/03
Plan for IR consult for paracentesis
Anemia of chronic disease
Continue to monitor hemoglobin.
No indication for transfusion
History of insulin-dependent diabetes mellitus
Continue home medication
Insulin sliding scale
Diabetic diet
Hemoglobin A1c 6.7
History of hyperlipidemia.
Continue statin
History of hypothyroidism.
Continue Synthroid
CODE STATUS: Full code
DVT prophylaxis: Eliquis
Diet: DM diet
Disposition: Continue antibiotic
monitor HR, consider Amiodarone.
Total time spent on today's encounter was 65 minutes which included time spent in counseling the patient/family regarding diagnosis and treatment plan as listed above, goals of care, and symptom management. Case was discussed with nursing staff,
specialists, and care coordinators/case management. All labs and imaging personally reviewed by me. Remainder the time spent in detailed review of previous records, lab data, imaging, and other medical provider documentation.
Anticipated Discharge: 24 - 48 hours
Subjective/Interval History
-
Date of Service: December 14, 2024
Patient seen and examined at bedside, denies any chest pain or shortness of breath, no abdominal pain, no nausea, no vomiting, no diarrhea or constipation.
Objective Data
-
Labs:
Laboratory Results
12/14/24
12:27
WBC 4.9
Hgb 10.3 L
Hct 31.8 L
Plt Count 120 L
Sodium 133 L
Potassium 4.0
Chloride 97 L
Carbon Dioxide 28
Vital Signs:
Vital Signs
Temp Pulse Resp BP Pulse Ox
97.7 F 103 17 94/58 97
12/14/24 11:05 12/14/24 14:00 12/14/24 14:00 12/14/24 14:00 12/14/24 14:00
I&O
12/13/24 12/14/24 12/15/24
06:59 06:59 06:59
Intake Total 240 / 240 240 / 240
Balance 240 / 240 240 / 240
Physical Exam
-
General: Appears Chronically Ill
HEENT: Normocephalic, Atraumatic, Moist Mucous Membranes, No Ptosis, PERRLA and Nose Appears Normal
Respiratory: Rales, Rhonchi and Non Labored Respirations
Cardiac: S1/S2, Irregular Rhythm and Tachycardic
Breast: Deferred by me
GI: Soft, Nontender, Normal Bowel Sounds and Distended
Genito-urinary: No Costovertebral Tender
Musculoskeletal: No Clubbing, No Cyanosis and Other (Bilateral lower extremity wounds)
Skin: Warm and Lesions (Lesions on legs, more on the left)
Neuro: Awake, Alert and Oriented
Psych: Calm
Data Reviewed
-
Diagnostic Radiology: Image personally visualized and interpreted and Report Reviewed by me
CT Scan: Image personally visualized and interpreted and Report Reviewed by me
Ultrasound: Image personally visualized and interpreted and Report Reviewed by me
MRI: Image personally visualized and interpreted and Report Reviewed by me
Medical Tests (Nuc Med, Echo etc): Image personally visualized and interpreted and Report Reviewed by me
Labs: Labs Reviewed by me
Old Records: Reviewed
[2024-12-14] MEDS: HEPARIN 4000 UNITS INTRACATH (15:57)
[2024-12-14 18:18] LABS: Glucose - Point of Care 141 mg/dl (70-99)
[2024-12-14] MEDS: LOPRESSOR 12.5 MG PO (20:43)
[2024-12-14] MEDS: LIPITOR 10 MG PO (20:43)
[2024-12-14 21:34] LABS: Glucose - Point of Care 159 mg/dl (70-99)
[2024-12-14] MEDS: LANTUS 0.05 UNITS SC (21:57)
[2024-12-15] VITALS (24 sets, daily range): BP systolic 84–129; BP diastolic 45–104; BMI 18.9
[2024-12-15 04:56] LABS: Hematocrit 33.6 % (37.0-47.0); Mean Corp Hgb Conc. 32.7 g/dL (33.0-37.0); Mean Corpuscular Hgb 33.3 pg (27.0-31.0); Mean Corpuscular Volume 101.8 fL (81.0-99.0); Mean Platelet Volume 10.6 fL (7.4-10.4); Platelet Count 116 10^3/uL (130-400); Red Cell Dist. Width 14.5 % (11.5-14.5); White Blood Cell Count 5.2 10^3/uL (4.8-10.8)
[2024-12-15 05:18] LABS: Blood Urea Nitrogen 10 mg/dl (7-17); Calcium 7.8 mg/dl (8.4-10.2); Carbon Dioxide 33 mmol/L (22-30); Chloride 97 mmol/L (98-107); Estimated Creatinine Clearance 19 ml/min; Glucose 135 mg/dl (70-99); Potassium 4.1 mmol/L (3.5-5.1); Sodium 135 mmol/L (135-145); eGFR 29.39
[2024-12-15] MEDS: SYNTHROID 75 MCG PO (05:29)
[2024-12-15 07:56] LABS: Glucose - Point of Care 102 mg/dl (70-99)
[2024-12-15] MEDS: NOVOLOG FLEXPEN-LOW RESISTANCE SC ×3 (08:33→16:51)
[2024-12-15] MEDS: ProAmatine 10 MG PO ×2 (08:33→16:52)
[2024-12-15] MEDS: ELIQUIS 2.5 MG PO ×2 (08:34→20:27)
[2024-12-15] MEDS: VISBIOME 2 CAP PO (08:34)
[2024-12-15] MEDS: LOPRESSOR PO (08:34)
[2024-12-15] MEDS: B COMPLEX w/VITAMIN C 1 CAPLET PO (08:34)
[2024-12-15] MEDS: PHOSLO 667 MG PO ×3 (08:34→16:52)
[2024-12-15] MEDS: LAC HYDRIN, AM LACTIN LOTION 1 APPLIC TOPICAL ×2 (08:39→21:04)
--- NOTE | 2024-12-15 12:17 | W.PN.NEPH.PH ---
Today's Communication / Plan
-
Dialysis tomorrow
Assessment/Plan
-
Impression:
ESRD MWF ([facility])
Fever/leukocytosis/hypotension/hypoxic: sepsis
ESLD/cirrhosis
Dyslipidemia
Chronic hypotension on midodrine
Diabetes
Hyperphosphatemia
Hypothyroid
Left lower extremity wound
Tunneled HD IJ catheter
MDS
CLL
Plan:
HD tomorrow, to get patient back on Monday schedule
I will limit UF as she did have atrial fibrillation yesterday following her dialysis
Pulse currently stable but she remains hypotensive
continue abx
continue midodrine chronically
No fevers no leukocytosis
Remains on ceftriaxone for strep pyogenes
-
-
Date of Service: December 15, 2024
CC / HPI / ROS
-
Chief Complaint:
ESRD
History of Present Illness:
A-fib at end of HD yesterday
BP stable low on midodrine
abx for S pyogenes sepsis
Review of Systems:
no CP/SOB
Labs
-
Labs:
WBC 5.2 10^3/uL (4.8-10.8) 12/15/24 04:00
RBC 3.30 10^6/uL (4.20-5.40) L 12/15/24 04:00
Hgb 11.0 g/dL (12.0-16.0) L 12/15/24 04:00
Hct 33.6 % (37.0-47.0) L 12/15/24 04:00
Plt Count 116 10^3/uL (130-400) L 12/15/24 04:00
Sodium 135 mmol/L (135-145) 12/15/24 04:00
Potassium 4.1 mmol/L (3.5-5.1) 12/15/24 04:00
Chloride 97 mmol/L (98-107) L 12/15/24 04:00
Carbon Dioxide 33 mmol/L (22-30) H 12/15/24 04:00
BUN 10 mg/dl (7-17) 12/15/24 04:00
Creatinine 1.7 mg/dL (0.6-1.0) H 12/15/24 04:00
eGFR 29.39 12/15/24 04:00
Glucose 135 mg/dl (70-99) H 12/15/24 04:00
Calcium 7.8 mg/dl (8.4-10.2) L 12/15/24 04:00
Zoh-O-Lsswprjjfzy Pept > 87072 pg/ml 12/10/24 12:57
Albumin 3.0 g/dl (3.5-5.0) L 12/13/24 04:19
Physical Exam
-
Vital Signs:
Vital Signs
Temp Pulse Resp BP Pulse Ox
97.8 F 80 20 96/76 94
12/15/24 06:40 12/15/24 11:00 12/15/24 11:00 12/15/24 11:00 12/15/24 11:30
Cardiovascular:: Irregular rate and rhythm
Respiratory:: Bilateral: Coarse
Lung Excursion:: Normal
Abdomen:: Nontender and Soft
Bowel Sounds:: Normal
Extremity Edema:: None: Bilateral:
[2024-12-15 12:32] LABS: Glucose - Point of Care 137 mg/dl (70-99)
--- NOTE | 2024-12-15 12:54 | W.PN.HOSP.TC ---
Today's Communication/Plan
-
Continue antibiotic
monitor HR,
Follow cardiac recommendation regarding A-fib regimen.
Arrangement for SNF placement.
Assessment / Plan
Assessment / Plan
Impression:
Patient is a pleasant 84 years old with history of end-stage renal disease on hemo-doalysis MWF, history of hyperlipidemia, cirrhosis, ascites, hypothyroidism who came to the ER from nursing facility for evaluation of change in her status, low
oxygen sat, patient seen and examined at bedside, does not recall why she came to the hospital, but she is awake and oriented now.
Patient also noted to have A-fib with RVR in the ER and she denies history of A-fib in the past.
Patient was not feeling well for last 3 days, in the ER patient noted to have evidence of severe sepsis with lactic acidosis, started on cefepime and Vanco.
Patient seen and examined at bedside, denies chest pain or shortness of breath, complaining of lower abdominal discomfort, bilateral lower extremity which showed superficial wounds, patient does not recall any falls.
Blood culture came back positive for Streptococcus pyogenes.
Infectious disease recommending repeat BC.
Repeat blood cultures remain negative, antibiotic de-escalated to ceftriaxone.
Ordered paracentesis
Patient had 4000 cc removed
Cardiac recommending low-dose beta sharda
Assessment/plan:
Severe sepsis with acute organ dysfunction/lactic acidosis
Streptococcus pyogenes bacteremia
Acute metabolic encephalopathy
Patient meets sepsis criteria on admission
Heart rate 112
WBCs 18.9
Respiratory rate 36
Temperature 102.3
Source of infection is (possible lower extremity wound, cannot rule out HD catheter as a source)
Avoid IV fluid as per nephrology commendations
IV antibiotic in form of vancomycin/cefepime
Blood culture pending
Urine culture pending
Consult infectious disease
12/10
Blood culture came back positive for Streptococcus pyogenes.
Infectious disease recommending repeat BC
Consider HD removal
12/11
Repeat blood culture remains negative.
Infectious disease recommend not to remove HD
12/12
Infectious disease recommending to continue Rocephin and discharged on Ceftin.
12/15
At time of dc, transition to cefuroxime 500mg po q24 (afternoon) through 12/22/24.
New onset A-fib with RVR
Patient said no history of A-fib in the past
Possibly secondary to sepsis
Started heparin drip---> then Eliquis 2.5 BID
Blood pressure is soft, limited options for rate control.
Cardiology consulted
Echocardiogram 12/09
Left ventricle is small in size with normal systolic function. LVEF 55-60%.
Biatrial enlargement.
Mild mitral regurgitation.
Mild tricuspid regurgitation. Normal PASP.
PFO/ASD with nclk-ta-bwylt shunt.
patient monitor
12/13
Cardiology started low-dose beta sharda.
12/14
Blood pressure soft, beta-sharda held, cardiology to consider amiodarone
End-stage renal disease on hemodialysis.
Appreciate nephrology input.
History of liver cirrhosis/ascites
Patient with history of ascites and outpatient paracentesis.
Last paracentesis done was 11/03
Plan for IR consult for paracentesis
Anemia of chronic disease
Continue to monitor hemoglobin.
No indication for transfusion
History of insulin-dependent diabetes mellitus
Continue home medication
Insulin sliding scale
Diabetic diet
Hemoglobin A1c 6.7
History of hyperlipidemia.
Continue statin
History of hypothyroidism.
Continue Synthroid
CODE STATUS: Full code
DVT prophylaxis: Eliquis
Diet: DM diet
Disposition: Continue antibiotic
monitor HR,
Follow cardiac recommendation regarding A-fib regimen.
Arrangement for SNF placement.
Total time spent on today's encounter was 65 minutes which included time spent in counseling the patient/family regarding diagnosis and treatment plan as listed above, goals of care, and symptom management. Case was discussed with nursing staff,
specialists, and care coordinators/case management. All labs and imaging personally reviewed by me. Remainder the time spent in detailed review of previous records, lab data, imaging, and other medical provider documentation.
Anticipated Discharge: 24 - 48 hours
Subjective/Interval History
-
Date of Service: December 15, 2024
Patient seen and examined at bedside, denies any chest pain or shortness of breath, no abdominal pain, no nausea, no vomiting, no diarrhea or constipation.
Blood pressure low, metoprolol held.
Objective Data
-
Labs:
Laboratory Results
12/15/24
04:00
WBC 5.2
Hgb 11.0 L
Hct 33.6 L
Plt Count 116 L
Sodium 135
Potassium 4.1
Chloride 97 L
Carbon Dioxide 33 H
BUN 10
Creatinine 1.7 H
Glucose 135 H
Calcium 7.8 L
Vital Signs:
Vital Signs
Temp Pulse Resp BP Pulse Ox
97.8 F 80 20 96/76 94
12/15/24 06:40 12/15/24 11:00 12/15/24 11:00 12/15/24 11:00 12/15/24 11:30
I&O
12/14/24 12/15/24 12/16/24
06:59 06:59 06:59
Intake Total 240 / 240 120 / 120
Balance 240 / 240 120 / 120
Physical Exam
-
General: Appears Chronically Ill
HEENT: Normocephalic, Atraumatic, Moist Mucous Membranes, No Ptosis, PERRLA and Nose Appears Normal
Respiratory: Rales, Rhonchi and Non Labored Respirations
Cardiac: S1/S2, Irregular Rhythm and Tachycardic
Breast: Deferred by me
GI: Soft, Nontender, Normal Bowel Sounds and Distended
Genito-urinary: No Costovertebral Tender
Musculoskeletal: No Clubbing, No Cyanosis and Other (Bilateral lower extremity wounds)
Skin: Warm and Lesions (Lesions on legs, more on the left)
Neuro: Awake, Alert and Oriented
Psych: Calm
Data Reviewed
-
Diagnostic Radiology: Image personally visualized and interpreted and Report Reviewed by me
CT Scan: Image personally visualized and interpreted and Report Reviewed by me
Ultrasound: Image personally visualized and interpreted and Report Reviewed by me
MRI: Image personally visualized and interpreted and Report Reviewed by me
Medical Tests (Nuc Med, Echo etc): Image personally visualized and interpreted and Report Reviewed by me
Labs: Labs Reviewed by me
Old Records: Reviewed
[2024-12-15] MEDS: ROCEPHIN 2000 MG IV (14:30)
[2024-12-15] MEDS: STERILE WATER FOR INJECTION 20 ML IV (14:30)
[2024-12-15 17:02] LABS: Glucose - Point of Care 139 mg/dl (70-99)
[2024-12-15] MEDS: LOPRESSOR 12.5 MG PO (20:23)
[2024-12-15] MEDS: TYLENOL 325 MG PO (20:27)
[2024-12-15] MEDS: LIPITOR 10 MG PO (20:28)
[2024-12-15 21:49] LABS: Glucose - Point of Care 136 mg/dl (70-99)
[2024-12-15] MEDS: LANTUS 0.05 UNITS SC (22:31)
[2024-12-16] VITALS (36 sets, daily range): BP systolic 83–136; BP diastolic 37–105; PULSE 105; O2SAT 99; BMI 18.9
[2024-12-16] MEDS: ProAmatine 10 MG PO ×4 (00:20→22:15)
--- NOTE | 2024-12-16 01:04 | PTCARENOTE ---
pt aaox3, able to make needs known. 2LNC applied overnight. Wounds cleaned and redressed. C/o 4/10 pain in abdomen, tylenol given per patient request. Accucheck 136, 5 units lantus given. VSS. Call macdonald within reach. Care ongoing.
[2024-12-16] MEDS: SYNTHROID 75 MCG PO (06:15)
[2024-12-16 08:19] LABS: Hematocrit 37.3 % (37.0-47.0); Hemoglobin 12.1 g/dL (12.0-16.0); Mean Corp Hgb Conc. 32.4 g/dL (33.0-37.0); Mean Corpuscular Hgb 33.1 pg (27.0-31.0); Mean Corpuscular Volume 101.9 fL (81.0-99.0); Mean Platelet Volume 10.5 fL (7.4-10.4); Platelet Count 150 10^3/uL (130-400); Red Blood Cell Count 3.66 10^6/uL (4.20-5.40); White Blood Cell Count 5.2 10^3/uL (4.8-10.8)
[2024-12-16 08:22] LABS: Glucose - Point of Care 105 mg/dl (70-99)
[2024-12-16 08:28] LABS: Blood Urea Nitrogen 21 mg/dl (7-17); Carbon Dioxide 31 mmol/L (22-30); Chloride 97 mmol/L (98-107); Estimated Creatinine Clearance 13 ml/min; Glucose 100 mg/dl (70-99); Potassium 4.3 mmol/L (3.5-5.1); Sodium 135 mmol/L (135-145); eGFR 17.65
--- NOTE | 2024-12-16 08:41 | W.PN.CD ---
Today's Communication / Plan
-
Continue Eliquis 2.5 bid and Metoprolol IR 12.5 BID
if cirrhosis is severe may prefer warfarin over Eliquis
Impression / Plan
-
Sepsis:
- Strep Pyogenes => latest cultures no growth at 72 hrs
- ID 2/2 blood cx's positive
- per medicine and ID
- Will proceed to [facility]ACEY if requested
New onset AFib with RVR => now rate better
- No symptoms at rest
- Rates OK at about 90-low 100s on metoprolol IR 12.5 BID
- AFib persisting
- On Eliquis
- [id number] (age2, gender, Hx CVA, DM).
ESRD on HD
Hx cirrhosis/ascites, INR 12/09/2024, if cirrhosis is severe may prefer warfarin over Eliquis
Subjective: No CP/palps/dyspnea
Echo 12/09/24: LVEF 55-60%, RENE, mild MR/TR, PFO with L=>R fow
TSH OK
Physical Exam
Vital Signs/Labs
Vital Signs
Temp Pulse Resp BP Pulse Ox
97.7 F 89 15 121/72 100
12/16/24 03:53 12/16/24 06:00 12/16/24 06:00 12/16/24 06:00 12/16/24 06:00
12/15/24 12/16/24 12/17/24
06:59 06:59 06:59
Actual Weight 49.952 kg 49.8 kg
12/16/24 07:42
12/16/24 07:42
PT 17.5 Sec (11.4-14.6) H 12/09/24 08:40
INR 1.40 12/09/24 08:40
APTT 33.4 Sec (23.4-35.0) 12/09/24 15:47
Magnesium 2.2 mg/dl (1.6-2.3) 12/10/24 12:52
12/10/24
12:57
Dsi-P-[id number] Pept > [id number]
Physical Exam
Constitutional: No acute distress
Cardiovascular: Rhythm/rate is irregular and S1S2 is normal
Respiratory: Respiratory effort normal and Lungs clear to auscul.
GI: Soft and Distention absent
Neuro/Psych: Alert
Data Reviewed
-
Date of Service: December 16, 2024
--- NOTE | 2024-12-16 09:06 | W.PN.CD ---
Today's Communication / Plan
-
Agree with cared
Note started yesterday and signed today
Impression / Plan
-
Sepsis:
- Strep Pyogenes => latest cultures no growth at 72 hrs
- ID 2/ blood cx's positive
- per medicine and ID
- Will proceed to STACEY if requested
New onset AFib with RVR => now rate better
- No symptoms at rest
- Rates OK at about 90-low 100s on metoprolol IR 12.5 BID
- AFib persisting
- On Eliquis
- [id number] (age2, gender, Hx CVA, DM).
ESRD on HD
Hx cirrhosis/ascites, INR 12/09/2024, if cirrhosis is severe may prefer warfarin over Eliquis
Subjective: No CP/palps/dyspnea
Echo 12/09/24: LVEF 55-60%, RENE, mild MR/TR, PFO with L=>R fow
TSH OK
Physical Exam
Vital Signs/Labs
Vital Signs
Temp Pulse Resp BP Pulse Ox
97.6 F 89 15 121/72 100
12/16/24 07:10 12/16/24 06:00 12/16/24 06:00 12/16/24 06:00 12/16/24 06:00
12/15/24 12/16/24 12/17/24
06:59 06:59 06:59
Actual Weight 49.952 kg 49.8 kg
12/16/24 07:42
12/16/24 07:42
PT 17.5 Sec (11.4-14.6) H 12/09/24 08:40
INR 1.40 12/09/24 08:40
APTT 33.4 Sec (23.4-35.0) 12/09/24 15:47
Magnesium 2.2 mg/dl (1.6-2.3) 12/10/24 12:52
12/10/24
12:57
Fcc-Q-[id number] Pept > [id number]
Physical Exam
Constitutional: No acute distress
Cardiovascular: Rhythm/rate is irregular
Respiratory: Respiratory effort normal
GI: Soft
Data Reviewed
-
Date of Service: December 16, 2024
[2024-12-16] MEDS: PHOSLO 667 MG PO ×2 (09:08→16:38)
[2024-12-16] MEDS: VISBIOME 2 CAP PO (09:09)
[2024-12-16] MEDS: LOPRESSOR 12.5 MG PO ×2 (09:09→21:41)
[2024-12-16] MEDS: ELIQUIS 2.5 MG PO ×2 (09:10→21:41)
[2024-12-16] MEDS: B COMPLEX w/VITAMIN C 1 CAPLET PO (09:10)
[2024-12-16] MEDS: NOVOLOG FLEXPEN-LOW RESISTANCE SC ×3 (09:23→17:40)
--- NOTE | 2024-12-16 09:36 | PTCARENOTE ---
Pt AAOx3 states she is not hungry that she had a bad night and wants to rest. Pt is [place], in AFIB . For HD at 1200
--- NOTE | 2024-12-16 11:10 | W.PN.ID1 ---
Date of Service
Date of Service: December 16, 2024
Today's Communication
- Can transition ceftriaxone (d8)to cefuroxime 500mg po q24 (afternoon) through 12/22/24.
Assessment / Plan
# Group A streptococcus bacteremia x 2 sets.
. Suspect source from leg wounds.
# Fever resolved
# Leukocytosis resolved
# New onset afib
# ESRD on HD via catheter
-Repeat blood cx's negative
-TTE no vege
- No need to dc HD catheter.
- Can transition ceftriaxone (d8)to cefuroxime 500mg po q24 (afternoon) through 12/22/24.
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
Diabetes mellitus
Liver cirrhosis with ascites
End-stage renal disease on hemodialysis
MDS with pancytopenia
Hypothyroidism
COPD
HLD
Venous insufficiency
R hallux amputation
Skin cancer Mohs surgery
Chief Complaint
-: Bacteremia
Vital Signs / Physical Exam
Vital Signs
Vital Signs
Temp Pulse Resp BP Pulse Ox
97.6 F 84 11 111/75 100
12/16/24 07:10 12/16/24 10:00 12/16/24 10:00 12/16/24 10:00 12/16/24 10:00
Physical Exam
Constitutional: No Acute Distress and Chronically Ill
Pulmonary: Clear
Gastrointestinal: Soft, Non Tender and Non Distended
Wound: Other (leg wounds dressings dry)
Neurological: AO x 3
Lines: HD Cath (RCW no erythema)
Objective Data
Lab Data
Lab Results
12/16/24 07:42
12/16/24 07:42
PT 17.5 Sec (11.4-14.6) H 12/09/24 08:40
INR 1.40 12/09/24 08:40
APTT 33.4 Sec (23.4-35.0) 12/09/24 15:47
Estimated Creat Clear 13 ml/min 12/16/24 07:42
Lactic Acid 1.4 mmol/L (0.7-2.0) 12/09/24 14:21
Total Bilirubin 0.5 mg/dl (0.2-1.3) 12/13/24 04:19
AST 17 U/L (14-36) 12/13/24 04:19
ALT 11 U/L (0-35) 12/13/24 04:19
Alkaline Phosphatase 90 U/L (38-126) 12/13/24 04:19
Most recent labs reviewed.
Micro Results:
12/10/24 13:52 Blood Culture - Final
Blood/Venous No Growth - Final Report
12/10/24 12:57 Blood Culture - Final
Blood/Venous No Growth - Final Report
12/11/24 14:18 Body Fluid Culture - Final
Peritoneal Fluid No Growth After 72 Hours
Gram Stain - Final
12/09/24 08:40 Blood Culture - Final
Blood/Venous Streptococcus pyogenes
Gram Stain - Final
12/09/24 08:40 Blood Culture - Final
Blood/Venous Streptococcus pyogenes
Gram Stain - Final
12/09/24 15:47 MRSA Screen - Final
Nose Staph aureus MRSA
12/09/24 15:30 C. difficile GDH Antigen & Toxins - Final
Feces/Stool Negative for toxigenic C.difficile
12/09 CXR: Limited study. Findings are consistent with changes of COPD
12/09 Left Tib/fib: There is chondrocalcinosis of the knee. There are prominent vascular calcifications. There is no definite radiographic evidence of osteomyelitis
[2024-12-16] MEDS: ProAmatine 5 MG PO (11:49)
[2024-12-16] MEDS: LAC HYDRIN, AM LACTIN LOTION 1 APPLIC TOPICAL ×2 (11:49→21:42)
[2024-12-16] MEDS: MANNITOL 25% 12.5 GRAMS IV ×2 (13:15→15:02)
[2024-12-16] MEDS: PHOSLO PO (13:17)
[2024-12-16] MEDS: FLEXBUMIN 25% FOR HEMODIALYSIS 12.5 GRAMS IV ×2 (13:20→15:00)
[2024-12-16 13:27] LABS: Glucose - Point of Care 90 mg/dl (70-99)
--- NOTE | 2024-12-16 13:40 | W.PN.NEPH.HD ---
Assessment
-
pt seen during HD
Bp low, midodrine pre HD
CVC functions fine, no need to change per ID
abx changed to PO
UF as tolerates
Progress Note - Hemodialysis
-
Date of Service: December 16, 2024
Duration: 30 minutes and 3 hours
Potassium Bath: 3
Calcium Bath: 2.5
Opti-Dialyzer: 160
Ultrafiltration: Other (0.5-1kg)
Blood Flow: 350
Dialysate Flow: 600
Heparin: no
EPO: no
--- NOTE | 2024-12-16 14:55 | W.PN.HOSP.TC ---
Today's Communication/Plan
-
Assessment / Plan
Assessment / Plan
General: No Apparent Distress, Comfortable and Conversant
HEENT: NormoCephalic, Moist mucous membranes, Atraumatic
Respiratory: Clear and Non Labored Respirations
Cardiac: S1/S2 and irregular Rhythm; HR around 85
GI: Soft, Non Tender, Non Distended and Normal Bowel Sounds
Musculoskeletal: No Edema, no deformity, decreased muscle bulk throughout
: NO [place]
Neuro: Awake, Alert, Nonfocal/grossly intact
Psych: Calm and Intact Judgment/Insight
Impression:
Patient is a pleasant 84 years old with history of end-stage renal disease on hemo-doalysis MWF, history of hyperlipidemia, cirrhosis, ascites, hypothyroidism who came to the ER from nursing facility for evaluation of change in her status, low
oxygen sat, patient seen and examined at bedside, does not recall why she came to the hospital, but she is awake and oriented now.
Patient also noted to have A-fib with RVR in the ER and she denies history of A-fib in the past.
Patient was not feeling well for last 3 days, in the ER patient noted to have evidence of severe sepsis with lactic acidosis, started on cefepime and Vanco.
Patient seen and examined at bedside, denies chest pain or shortness of breath, complaining of lower abdominal discomfort, bilateral lower extremity which showed superficial wounds, patient does not recall any falls.
Blood culture came back positive for Streptococcus pyogenes.
Infectious disease recommending repeat BC.
Repeat blood cultures remain negative, antibiotic de-escalated to ceftriaxone.
Ordered paracentesis
Patient had 4000 cc removed
Cardiac recommending low-dose beta sharda
Assessment/plan:
Severe sepsis with acute organ dysfunction/lactic acidosis
- Secondary to Streptococcus pyogenes bacteremia
- Improving, transition antibiotics to cefuroxime 500 mg daily through 12/22
Acute metabolic encephalopathy
- Secondary to sepsis from bacteremia
- Continue treatment of bacteremia as outlined above, appears to be at baseline mental status
New onset A-fib with RVR
- Patient said no history of A-fib in the past
- Suspect secondary to sepsis
- Started heparin drip---> then Eliquis 2.5 BID, cardiology suggesting warfarin may be beneficial over Eliquis if her cirrhosis is severe
- Blood pressure is soft likely due to cirrhosis, limited options for rate control, continue midodrine and metoprolol tartrate 12.5 mg p.o. twice daily
- Echocardiogram 12/09, LVEF 55-60%. Biatrial enlargement. Mild mitral regurgitation. PFO/ASD with orsx-mc-[id number] shunt.
End-stage renal disease on hemodialysis.
Appreciate nephrology input.
History of liver cirrhosis/ascites
- Patient with history of ascites and outpatient paracentesis.
- Last paracentesis done was 11/03
- IR paracentesis done this admission on 12/11 with 4 L off
Anemia of chronic disease
Continue to monitor hemoglobin.
No indication for transfusion
History of insulin-dependent diabetes mellitus
Continue home medication
Insulin sliding scale
Diabetic diet
Hemoglobin A1c 6.7
History of hyperlipidemia.
Continue statin
History of hypothyroidism.
Continue Synthroid
CODE STATUS: Limited DNR, patient does not want intubation but is okay with chest compressions
DVT prophylaxis: Eliquis
Diet: DM diet
Disposition: Continue antibiotic
monitor HR,
Follow cardiac recommendation regarding A-fib regimen.
Arrangement for SNF placement.
Total time spent on today's encounter was 40 minutes
Anticipated Discharge: 24 - 48 hours
Subjective/Interval History
-
Date of Service: December 16, 2024
Patient was seen and examined at bedside today. She says she feels wiped out after everything she has been through.
Objective Data
-
Labs:
Laboratory Results
12/16/24
07:42
WBC 5.2
Hgb 12.1
Hct 37.3
Plt Count 150 D
Sodium 135
Potassium 4.3
Chloride 97 L
Carbon Dioxide 31 H
BUN 21 H
Creatinine 2.6 H
Glucose 100 H
Calcium 8.0 L
Vital Signs:
Vital Signs
Temp Pulse Resp BP Pulse Ox
97.6 F 110 24 83/65 100
12/16/24 07:10 12/16/24 13:15 12/16/24 13:15 12/16/24 13:15 12/16/24 12:50
I&O
12/15/24 12/16/24 12/17/24
06:59 06:59 06:59
Intake Total 120 / 120
Output Total 1 /
Balance 120 / 120 -1 / -1
Review of Systems
-
History Source: Patient
All other systems: Reviewed and negative
Constitutional: Reports Fatigue and Weakness
Musculoskeletal: Reports Joint Pain (Right lateral foot pain)
Physical Exam
-
General: No Apparent Distress
[2024-12-16] MEDS: HEPARIN 4000 UNITS INTRACATH (16:10)
[2024-12-16] MEDS: STERILE WATER FOR INJECTION 20 ML IV (16:35)
[2024-12-16] MEDS: ROCEPHIN 2000 MG IV (16:36)
--- NOTE | 2024-12-16 16:38 | CM ---
Patient from [facility] with Hx ESRD on HD with Dx sepsis, new onset A-fib with RVR. O2 2L. Seen by wound care nurse. PT/OT 12/16; requires assist of 2, recommend skilled rehab. Per nurse; A/O.
Message from Dr Beaulieu; waiting for HR to be controlled, probably ready for d.c in 24-48 hrs.
Spoke with Marquis Deloris SNF Liaison for [facility] (ph [phone]); referral updated. They will be able to accept the patient once outpatient HD is setup and patient is medically ready.
Spoke with Elham Resendiz; Hepatitis labs were received and patient will most likely be cleared tomorrow. Assigned admission coordinator is Rui swann [phone].
Met with patient and left message for daughter Misa; provided update that we are waiting for clearance for [facility], and as previously discussed [facility] can accept once outpt HD is setup and patient is ready for d/c.
Plan follow up with Elham Estrada for dialysis chair at [facility].
Plan [facility] once medically ready and HD Chair confirmed.
[2024-12-16 17:44] LABS: Glucose - Point of Care 94 mg/dl (70-99)
--- NOTE | 2024-12-16 18:31 | PTCARENOTE ---
TT left for Constance , pt would like to speak to her in the am.
[2024-12-16] MEDS: LIPITOR 10 MG PO (21:40)
[2024-12-16] MEDS: LANTUS 0.05 UNITS SC (21:42)
[2024-12-16] MEDS: IMODIUM 2 MG PO (21:44)
[2024-12-16 21:57] LABS: Glucose - Point of Care 160 mg/dl (70-99)
--- NOTE | 2024-12-16 23:00 | PTCARENOTE ---
Pt aaox3, able to make needs known. Large loose BM this pm, bed linens changed, CHG bath done. Dose of immodium given along with evening meds. Oxygen tubing came out of pt nose, SaO2 dropped to 75% on RA. 2LNC placed back on pt, SaO2 quickly
recovered to 98% on 2LNC. VSS. Pt resting comfortably in bed at this time. Care ongoing.
[2024-12-17] VITALS (17 sets, daily range): BP systolic 86–135; BP diastolic 37–115; PULSE 108; BMI 18.6
[2024-12-17 05:53] LABS: Blood Urea Nitrogen 8 mg/dl (7-17); Calcium 7.8 mg/dl (8.4-10.2); Carbon Dioxide 29 mmol/L (22-30); Chloride 101 mmol/L (98-107); Estimated Creatinine Clearance 18 ml/min; Glucose 126 mg/dl (70-99); Potassium 3.6 mmol/L (3.5-5.1); Sodium 137 mmol/L (135-145); eGFR 27.44
[2024-12-17 06:01] LABS: Hematocrit 32.4 % (37.0-47.0); Hemoglobin 10.4 g/dL (12.0-16.0); Mean Corp Hgb Conc. 32.1 g/dL (33.0-37.0); Mean Corpuscular Hgb 32.9 pg (27.0-31.0); Mean Corpuscular Volume 102.5 fL (81.0-99.0); Mean Platelet Volume 10.3 fL (7.4-10.4); Platelet Count 130 10^3/uL (130-400); Red Blood Cell Count 3.16 10^6/uL (4.20-5.40); White Blood Cell Count 5.7 10^3/uL (4.8-10.8)
[2024-12-17] MEDS: SYNTHROID 75 MCG PO (06:15)
[2024-12-17] MEDS: ProAmatine 10 MG PO ×3 (06:32→21:05)
--- NOTE | 2024-12-17 06:34 | PTCARENOTE ---
Pt BP 93/51 MAP 61. LABELS MOLDER notified via tiger text. LABELS MOLDER approved [id number] midodrine given early.
[2024-12-17 08:27] LABS: Glucose - Point of Care 135 mg/dl (70-99)
[2024-12-17] MEDS: ELIQUIS 2.5 MG PO ×2 (08:28→19:04)
[2024-12-17] MEDS: NOVOLOG FLEXPEN-LOW RESISTANCE SC ×2 (08:28→17:05)
[2024-12-17] MEDS: VISBIOME 2 CAP PO (08:28)
[2024-12-17] MEDS: PHOSLO 667 MG PO ×3 (08:28→17:33)
[2024-12-17] MEDS: B COMPLEX w/VITAMIN C 1 CAPLET PO (08:29)
[2024-12-17] MEDS: LOPRESSOR 12.5 MG PO ×2 (08:29→19:04)
[2024-12-17] MEDS: LAC HYDRIN, AM LACTIN LOTION 1 APPLIC TOPICAL ×2 (08:30→19:05)
--- NOTE | 2024-12-17 08:56 | W.PN.CD ---
Today's Communication / Plan
-
Continue current BB and Eliquis
Can decide about rhythm control in the office, will follow with Dr. Soni if pt choses cardiac care here
Impression / Plan
-
Sepsis:
- Strep Pyogenes => latest cultures no growth at 72 hrs
- ID 2/ blood cx's positive
- per medicine and ID, felt to be wound source, no plans for STACEY at this time
New onset AFib with RVR => now rate better
- No symptoms at rest
- Rates OK at about 80-90s now
- AFib persisting
- On Eliquis
- [id number] 6 (age2, gender, Hx CVA, DM).
ESRD on HD
Hx cirrhosis/ascites, INR 12/09/2024, if cirrhosis is severe may prefer warfarin over Eliquis
Subjective: No CP/palps/dyspnea
Echo 12/09/24: LVEF 55-60%, RENE, mild MR/TR, PFO with L=>R fow
TSH OK
Physical Exam
Vital Signs/Labs
Vital Signs
Temp Pulse Resp BP Pulse Ox
98.2 F 93 20 108/58 92
12/17/24 03:16 12/17/24 08:29 12/17/24 06:13 12/17/24 08:29 12/17/24 06:11
12/16/24 12/17/24 12/18/24
06:59 06:59 06:59
Actual Weight 49.8 kg 49.2 kg
12/17/24 05:11
12/17/24 05:11
PT 17.5 Sec (11.4-14.6) H 12/09/24 08:40
INR 1.40 12/09/24 08:40
APTT 33.4 Sec (23.4-35.0) 12/09/24 15:47
Magnesium 2.2 mg/dl (1.6-2.3) 12/10/24 12:52
12/10/24
12:57
Zgg-T-Ufkjubfqqzr Pept > [id number]
Physical Exam
Constitutional: No acute distress
Cardiovascular: Rhythm/rate is irregular and S1S2 is normal
Respiratory: Respiratory effort normal and Lungs clear to auscul.
GI: Soft and Distention absent
Neuro/Psych: Alert
Data Reviewed
-
Date of Service: December 17, 2024
--- NOTE | 2024-12-17 09:43 | W.PN.ID1 ---
Date of Service
Date of Service: December 17, 2024
Today's Communication
- Transition to cefuroxime 500mg po q24 (afternoon) through 12/22/24.
- ID will sign off.
Assessment / Plan
# Group A streptococcus bacteremia x 2 sets.
. Suspect source from leg wounds.
# Fever resolved
# Leukocytosis resolved
# New onset afib
# ESRD on HD via catheter
-Repeat blood cx's negative
-TTE no vege
- No need to dc HD catheter.
- s/p ceftriaxone x8d
- Transition to cefuroxime 500mg po q24 (afternoon) through 12/22/24.
- ID will sign off.
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
Diabetes mellitus
Liver cirrhosis with ascites
End-stage renal disease on hemodialysis
MDS with pancytopenia
Hypothyroidism
COPD
HLD
Venous insufficiency
R hallux amputation
Skin cancer Mohs surgery
Chief Complaint
-: Bacteremia
Vital Signs / Physical Exam
Vital Signs
Vital Signs
Temp Pulse Resp BP Pulse Ox
97.7 F 93 20 108/58 92
12/17/24 07:05 12/17/24 08:29 12/17/24 06:13 12/17/24 08:29 12/17/24 06:11
Physical Exam
Constitutional: No Acute Distress and Chronically Ill
Pulmonary: Clear
Gastrointestinal: Soft, Non Tender and Non Distended
Extremities: Negative Edema
Wound: Other (leg wounds dressings dry)
Neurological: AO x 3
Lines: HD Cath (RCW no erythema)
Objective Data
Lab Data
Lab Results
12/17/24 05:11
12/17/24 05:11
PT 17.5 Sec (11.4-14.6) H 06/09/25 08:40
INR 1.40 12/09/24 08:40
APTT 33.4 Sec (23.4-35.0) 12/09/24 15:47
Estimated Creat Clear 18 ml/min 12/17/24 05:11
Lactic Acid 1.4 mmol/L (0.7-2.0) 12/09/24 14:21
Total Bilirubin 0.5 mg/dl (0.2-1.3) 12/13/24 04:19
AST 17 U/L (14-36) 12/13/24 04:19
ALT 11 U/L (0-35) 12/13/24 04:19
Alkaline Phosphatase 90 U/L (38-126) 12/13/24 04:19
Most recent labs reviewed.
Micro Results:
12/10/24 13:52 Blood Culture - Final
Blood/Venous No Growth - Final Report
12/10/24 12:57 Blood Culture - Final
Blood/Venous No Growth - Final Report
12/11/24 14:18 Body Fluid Culture - Final
Peritoneal Fluid No Growth After 72 Hours
Gram Stain - Final
12/09/24 08:40 Blood Culture - Final
Blood/Venous Streptococcus pyogenes
Gram Stain - Final
12/09/24 08:40 Blood Culture - Final
Blood/Venous Streptococcus pyogenes
Gram Stain - Final
12/09/24 15:47 MRSA Screen - Final
Nose Staph aureus MRSA
12/09/24 15:30 C. difficile GDH Antigen & Toxins - Final
Feces/Stool Negative for toxigenic C.difficile
12/09 CXR: Limited study. Findings are consistent with changes of COPD
12/09 Left Tib/fib: There is chondrocalcinosis of the knee. There are prominent vascular calcifications. There is no definite radiographic evidence of osteomyelitis
--- NOTE | 2024-12-17 11:29 | W.PN.NEPH.PH ---
Today's Communication / Plan
-
HD tomorrow
Assessment/Plan
-
Impression:
ESRD MWF ([facility])
Fever/leukocytosis/hypotension/hypoxic: sepsis
ESLD/cirrhosis
Dyslipidemia
Chronic hypotension on midodrine
Diabetes
Hyperphosphatemia
Hypothyroid
Left lower extremity wound
Tunneled HD IJ catheter
MDS
CLL
Plan:
HD tomorrow with limited UF
bp sof ton midodrine
continue abx
No fevers no leukocytosis
changed to po cefuroxime for strep pyogenes toll 12/22
d/c plan noted
-
-
Date of Service: December 17, 2024
CC / HPI / ROS
-
Chief Complaint:
ESRD
History of Present Illness:
tolerated HD yesterday
BP stable low on midodrine
abx for S pyogenes sepsis
Review of Systems:
no CP/SOB
no n/v
Labs
-
Labs:
WBC 5.7 10^3/uL (4.8-10.8) 12/17/24 05:11
RBC 3.16 10^6/uL (4.20-5.40) L 12/17/24 05:11
Hgb 10.4 g/dL (12.0-16.0) L 12/17/24 05:11
Hct 32.4 % (37.0-47.0) L 12/17/24 05:11
Plt Count 130 10^3/uL (130-400) 12/17/24 05:11
Sodium 137 mmol/L (135-145) 12/17/24 05:11
Potassium 3.6 mmol/L (3.5-5.1) 12/17/24 05:11
Chloride 101 mmol/L (98-107) 12/17/24 05:11
Carbon Dioxide 29 mmol/L (22-30) 12/17/24 05:11
BUN 8 mg/dl (7-17) 12/17/24 05:11
Creatinine 1.8 mg/dL (0.6-1.0) H 12/17/24 05:11
eGFR 27.44 12/17/24 05:11
Glucose 126 mg/dl (70-99) H 12/17/24 05:11
Calcium 7.8 mg/dl (8.4-10.2) L 12/17/24 05:11
Pxj-F-Acfsjnbyucj Pept > 85452 pg/ml 12/10/24 12:57
Albumin 3.0 g/dl (3.5-5.0) L 12/13/24 04:19
Physical Exam
-
Vital Signs:
Vital Signs
Temp Pulse Resp BP Pulse Ox
97.7 F 93 20 108/58 92
12/17/24 07:05 12/17/24 08:29 12/17/24 06:13 12/17/24 08:29 12/17/24 06:11
Cardiovascular:: Regular rate and rhythm
Respiratory:: Bilateral: Coarse
Lung Excursion:: Normal
Abdomen:: Nontender and Soft
Extremity Edema:: None: Bilateral:
Whittington Catheter: No
[2024-12-17 12:47] LABS: Glucose - Point of Care 188 mg/dl (70-99)
[2024-12-17] MEDS: NOVOLOG FLEXPEN-LOW RESISTANCE 1 UNITS SC (13:34)
[2024-12-17] MEDS: CEFTIN 500 MG PO (13:35)
[2024-12-17] MEDS: STERILE WATER FOR INJECTION IV (13:39)
--- NOTE | 2024-12-17 16:06 | W.PN.HOSP.TC ---
Today's Communication/Plan
-
Assessment / Plan
Assessment / Plan
General: No Apparent Distress, Comfortable and Conversant
HEENT: NormoCephalic, Moist mucous membranes, Atraumatic
Respiratory: Clear and Non Labored Respirations
Cardiac: S1/S2 and irregular Rhythm; HR around 85
GI: Soft, Non Tender, Non Distended and Normal Bowel Sounds
Musculoskeletal: No Edema, no deformity, decreased muscle bulk throughout
: NO Whittington
Neuro: Awake, Alert, Nonfocal/grossly intact
Psych: Calm and Intact Judgment/Insight
Impression:
Patient is a pleasant 84 years old with history of end-stage renal disease on hemo-doalysis MWF, history of hyperlipidemia, cirrhosis, ascites, hypothyroidism who came to the ER from nursing facility for evaluation of change in her status, low
oxygen sat, patient seen and examined at bedside, does not recall why she came to the hospital, but she is awake and oriented now.
Patient also noted to have A-fib with RVR in the ER and she denies history of A-fib in the past.
Patient was not feeling well for last 3 days, in the ER patient noted to have evidence of severe sepsis with lactic acidosis, started on cefepime and Vanco.
Patient seen and examined at bedside, denies chest pain or shortness of breath, complaining of lower abdominal discomfort, bilateral lower extremity which showed superficial wounds, patient does not recall any falls.
Blood culture came back positive for Streptococcus pyogenes.
Infectious disease recommending repeat BC.
Repeat blood cultures remain negative, antibiotic de-escalated to ceftriaxone.
Ordered paracentesis
Patient had 4000 cc removed
Cardiac recommending low-dose beta sharda
Assessment/plan:
Severe sepsis with acute organ dysfunction/lactic acidosis
- Secondary to Streptococcus pyogenes bacteremia
- Improving, transitioned antibiotics to cefuroxime 500 mg daily through 12/22
- Medically stable with plan for discharge to SNF in the next 24 hours
Acute metabolic encephalopathy
- Secondary to sepsis from bacteremia
- Continue treatment of bacteremia as outlined above, appears to be at baseline mental status
New onset A-fib with RVR
- Patient said no history of A-fib in the past
- Suspect secondary to sepsis
- Started heparin drip---> then Eliquis 2.5 BID, cardiology suggesting warfarin may be beneficial over Eliquis if her cirrhosis is severe
- Blood pressure is soft likely due to cirrhosis, limited options for rate control, continue midodrine and metoprolol tartrate 12.5 mg p.o. twice daily
- Echocardiogram 12/09, LVEF 55-60%. Biatrial enlargement. Mild mitral regurgitation. PFO/ASD with xlwc-vp-efikx shunt.
End-stage renal disease on hemodialysis.
Appreciate nephrology input.
History of liver cirrhosis/ascites
- Patient with history of ascites and outpatient paracentesis.
- Last paracentesis done was 11/03
- IR paracentesis done this admission on 12/11 with 4 L off
Anemia of chronic disease
Continue to monitor hemoglobin.
No indication for transfusion
History of insulin-dependent diabetes mellitus
Continue home medication
Insulin sliding scale
Diabetic diet
Hemoglobin A1c 6.7
History of hyperlipidemia.
Continue statin
History of hypothyroidism.
Continue Synthroid
CODE STATUS: Limited DNR, patient does not want intubation but is okay with chest compressions
DVT prophylaxis: Eliquis
Diet: DM diet
Total time spent on today's encounter was 40 minutes
Anticipated Discharge: Within 24 hours
Subjective/Interval History
-
Date of Service: December 17, 2024
Patient was seen and examined at bedside this morning. Feeling well although still weak but better than yesterday.
Objective Data
-
Labs:
Laboratory Results
12/17/24
05:11
WBC 5.7
Hgb 10.4 L
Hct 32.4 L
Plt Count 130
Sodium 137
Potassium 3.6
Chloride 101
Carbon Dioxide 29
BUN 8
Creatinine 1.8 H
Glucose 126 H
Calcium 7.8 L
Vital Signs:
Vital Signs
Temp Pulse Resp BP Pulse Ox
97.7 F 96 19 126/96 98
12/17/24 11:05 12/17/24 14:00 12/17/24 14:00 12/17/24 14:00 12/17/24 12:00
I&O
12/16/24 12/17/24 12/18/24
06:59 06:59 06:59
Output Total
Balance -1 / -1
Review of Systems
-
History Source: Patient
All other systems: Reviewed and negative
Constitutional: Reports Fatigue and Weakness
Physical Exam
-
General: No Apparent Distress
--- NOTE | 2024-12-17 16:44 | CM ---
Patient from [facility] with Hx ESRD on HD with Dx sepsis, new onset A-fib with RVR. Room air. Receiving oral Abx. Seen by wound care nurse. PT/OT 12/16; requires assist of 2, recommend skilled rehab.
Spoke with Ed, Coordinator [facility] x [phone]; the patient is cleared to start outpt HD at [facility] 12/20, with schedule MWF 6:30am. Schedule Letter with address and phone faxed to .
Spoke with Marquis [facility]or[facility] SNF Liaison for Post Acute SNF (ph [phone]); provided update with clearance for [facility] 12/20, with schedule MWF 6:30am. Schedule Letter faxed to Deloris. They are able to accept the patient
tomorrow. The for report [phone], fax [phone]. She is aware HD will be done here tomorrow before d/c.
Met with patient and spoke with daughter Misa; provided update that patient is cleared to start outpt HD at [facility] 12/20, with schedule MWF 6:30am. Schedule Letter with address and phone provided to patient. Patient asked
again for address to SNF which was provided again in writing. Patient and daughter are aware of planned discharge tomorrow to Post Acute and agree with this plan - IMM completed.
Plan discharge tomorrow after HD, to Post Acute SNF by ambulance, with Outpt HD at [facility].
[2024-12-17 16:57] LABS: Glucose - Point of Care 142 mg/dl (70-99)
[2024-12-17 17:15] LABS: Glucose - Point of Care 132 mg/dl (70-99)
--- NOTE | 2024-12-17 18:08 | PTCARENOTE ---
Assumed care of patient at beginning of this shift from previous RN. Patient worked with PT and sat OOB in chair this afternoon. HR 90s-low 100s, occasionally hitting 120s. Not sustaining but happening occasionally t/o the day. BP 114/63.
Ilia made aware via TT.
[2024-12-17] MEDS: IMODIUM 2 MG PO (19:12)
[2024-12-17] MEDS: LIPITOR 10 MG PO (21:06)
[2024-12-17] MEDS: LANTUS 0.05 UNITS SC (21:06)
[2024-12-17 21:19] LABS: Glucose - Point of Care 157 mg/dl (70-99)
[2024-12-18] VITALS (33 sets, daily range): BP systolic 83–125; BP diastolic 41–93; BMI 18.9
--- NOTE | 2024-12-18 04:20 | DOWNTIME ---
Addendum entered and electronically signed by Myah Hirsch RN 12/18/24 14:22:
Correction: Downtime was 12/18/2024 from 0100 to 12/18/2024 at 0415
Original Note:
There was a [facility] [employer] Technical Officer Downtime on 12/17/2024 from 0100 to 12/18/2024 at 0415. Downtime documentation of patient's care, including medication administrations, has been reconciled in the electronic record per guidelines. Refer to the
patient's paper chart under the miscellaneous tab to see printed paper medication records and downtime forms.
[2024-12-18] MEDS: ProAmatine 5 MG PO (05:45)
[2024-12-18] MEDS: SYNTHROID 75 MCG PO (05:45)
[2024-12-18 07:30] LABS: Glucose - Point of Care 112 mg/dl (70-99)
[2024-12-18] MEDS: NOVOLOG FLEXPEN-LOW RESISTANCE SC ×2 (07:32→11:38)
[2024-12-18] MEDS: PHOSLO PO (07:43)
[2024-12-18 08:19] LABS: Hematocrit 32.6 % (37.0-47.0); Hemoglobin 10.5 g/dL (12.0-16.0); Mean Corp Hgb Conc. 32.2 g/dL (33.0-37.0); Mean Corpuscular Hgb 32.8 pg (27.0-31.0); Mean Corpuscular Volume 101.9 fL (81.0-99.0); Mean Platelet Volume 9.9 fL (7.4-10.4); Platelet Count 140 10^3/uL (130-400); Red Cell Dist. Width 15.3 % (11.5-14.5); White Blood Cell Count 7.6 10^3/uL (4.8-10.8)
[2024-12-18] MEDS: ProAmatine 10 MG PO ×2 (08:25→15:30)
[2024-12-18] MEDS: ELIQUIS 2.5 MG PO (08:25)
[2024-12-18] MEDS: LAC HYDRIN, AM LACTIN LOTION 1 APPLIC TOPICAL (08:28)
--- NOTE | 2024-12-18 08:36 | W.PN.NEPH.HD ---
Assessment
-
Patient seen on dialysis
Systolic blood pressure 106 at current [place]
Dialysis via tunneled catheter
Midodrine support provided pre HD
Progress Note - Hemodialysis
-
Date of Service: December 18, 2024
Duration: 30 minutes and 3 hours
Potassium Bath: 3
Calcium Bath: 2.5
Opti-Dialyzer: 160
Ultrafiltration: Other (.5kg as hemodynamically tolerated)
Blood Flow: 400
Dialysate Flow: 600
Heparin: none
EPO: none
[2024-12-18 08:37] LABS: Blood Urea Nitrogen 15 mg/dl (7-17); Calcium 7.9 mg/dl (8.4-10.2); Carbon Dioxide 29 mmol/L (22-30); Chloride 100 mmol/L (98-107); Estimated Creatinine Clearance 12 ml/min; Glucose 116 mg/dl (70-99); Potassium 3.6 mmol/L (3.5-5.1); Sodium 135 mmol/L (135-145); eGFR 16.87
[2024-12-18] MEDS: MANNITOL 25% 12.5 GRAMS IV (09:06)
--- NOTE | 2024-12-18 09:20 | W.PN.CD ---
Addendum entered and electronically signed by Bob Omer MD 12/18/24 10:50:
I saw and examined the patient.
The SOLUTION ENGINEER's note was reviewed and I agree with the note.
Comment: Afib adequately rate controlled. Eliquis appropriately dose. No symptoms. We will sign off. F/u arranged.
Addendum entered and electronically signed by KY Darden 12/18/24 09:46:
Follow-up with Dr. Soni in chart.
Original Note:
Today's Communication / Plan
-
-continue metoprolol and Eliquis
Impression / Plan
-
Sepsis:
- Strep Pyogenes => latest cultures negative
- per medicine and ID, felt to be wound source, no plans for STACEY at this time
New onset AFib with RVR: persistent, rates improved
- No symptoms at rest
- [id number] (age2, gender, Hx CVA, DM). On Eliquis.
ESRD on HD: currently getting HD
Hx cirrhosis/ascites, INR 12/09/2024 1.4, if cirrhosis is severe may prefer warfarin over Eliquis
Subjective:
Feels fine. No cardiac complaints.
Echo 12/09/24: LVEF 55-60%, RENE, mild MR/TR, PFO with L=>R fow
TSH OK
Physical Exam
Vital Signs/Labs
Vital Signs
Temp Pulse Resp BP Pulse Ox
97.6 F 92 22 106/46 93
12/18/24 07:13 12/18/24 08:30 12/18/24 08:30 12/18/24 08:30 12/18/24 08:15
12/17/24 12/18/24 12/19/24
06:59 06:59 06:59
Actual Weight 49.2 kg 49.8 kg
12/18/24 07:45
12/18/24 07:45
PT 17.5 Sec (11.4-14.6) H 12/09/24 08:40
INR 1.40 12/09/24 08:40
APTT 33.4 Sec (23.4-35.0) 12/09/24 15:47
Magnesium 2.2 mg/dl (1.6-2.3) 12/10/24 12:52
12/10/24
12:57
Jym-G-Yueqfvgmlsr Pept > [id number]
Physical Exam
Constitutional: No acute distress
EENT: Anicteric
Cardiovascular: Rhythm/rate is irregular
Respiratory: Respiratory effort normal and Lungs clear to auscul.
Neuro/Psych: AO x 3
Data Reviewed
-
Date of Service: December 18, 2024
EKG: Other (tele, AFIB, rate-controlled)
Labs: Labs Reviewed by me
--- NOTE | 2024-12-18 10:01 | WOUNDNOTE ---
COLETTE RN NOTE: Followed up today with assist of nurse Kelley, patient for discharge later today. Patient currently on dialysis, unable to assess Sacrum, no changes reported by nursing. L arm wound healed, dry flaky skin visible, moisturized with
Vaseline. L posterior knee with intact scabs. B/L knees with skin tears L>R. L medial lower leg with dry open ulcers, scant drainage. Adaptic,ABD pad and sanchez applied to medial lower leg and knee. Small silicone foam changed on R knee. Heels boggy
but blanchable pink, silicone foams applied. Pillow under calves. Moisturized legs with Vaseline and patient remains on air mattress. Will update wound care orders, discharge instructions and nurse Briana aware of the above.
--- NOTE | 2024-12-18 10:08 | WOUNDNOTE ---
LEFT UPPER LATERAL ARM
--- NOTE | 2024-12-18 10:08 | WOUNDNOTE ---
RIGHT POSTERIOR SHOULDER
--- NOTE | 2024-12-18 10:10 | WOUNDNOTE ---
LEFT LOWER MEDIAL LEG
--- NOTE | 2024-12-18 10:10 | WOUNDNOTE ---
RIGHT POSTERIOR KNEE
--- NOTE | 2024-12-18 10:44 | PTCARENOTE ---
Assumed care of patient at beginning of this shift from previous RN; currently receiving HD. Midodrine HD dose given on previous shift; scheduled dose given by this RN. BP 89/54. HD RN requested morning meds, with the exception of midodrine and
eliquis, be held until after HD. Patient states she is feeling anxious about going to a new facility for rehab; emotional support provided. Patient seen by WOC and wound care orders updated. See worklist for full assessment and vital signs.
[2024-12-18 11:19] LABS: Glucose - Point of Care 90 mg/dl (70-99)
[2024-12-18] MEDS: LOPRESSOR PO (11:39)
[2024-12-18] MEDS: B COMPLEX w/VITAMIN C 1 CAPLET PO (11:47)
[2024-12-18] MEDS: VISBIOME 2 CAP PO (11:47)
[2024-12-18] MEDS: PHOSLO 667 MG PO (11:47)
--- NOTE | 2024-12-18 12:08 | W.DCSUMMARY ---
Discharge Summary
Discharge Data
Date of Admission: 12/09/24
Date of Discharge: 12/18/24
Total time spent discharging patient (in min): 42
-
Pending Results: No
Hospital Course
Ms. Nguyễn is a 84-year-old female with a medical history of end-stage renal disease (HD MWF), hyperlipidemia, cirrhosis, ascites, and hypothyroidism who presented to the ED from her nursing facility for evaluation of mental status change and
hypoxia. She had not been feeling well for 3 days prior to arrival. On exam she had superficial wounds in her bilateral lower extremities. She was found to be in A-fib with RVR with no history of A-fib. She was started on heparin drip for
anticoagulation which was later transitioned to Eliquis. Rate control options were limited due to her baseline hypotension in the setting of advanced cirrhosis with ascites. Ultimately her heart rate was well-controlled with metoprolol tartrate
12.5 mg twice daily with scheduled midodrine for blood pressure support. Cardiology was closely involved in her care and recommended considering anticoagulation with warfarin instead of Eliquis if her cirrhosis was severe. This transition can be
considered upon further evaluation in the outpatient setting.
Her blood cultures resulted positive for strep pyogenes. She was initially treated with ceftriaxone which was later transitioned to cefuroxime which will be continued through 12/22/2024 to complete antibiotic course. Her mental status returned to
baseline. Echocardiogram showed no evidence of vegetations, did show biatrial enlargement and PFO/ASD with wzqe-lz-ybhcd shunt. Repeat blood cultures were sterile. Hemodialysis catheter exchange was not indicated. She underwent paracentesis on
12/11 with 4 L of fluid removed. Peritoneal fluid cultures were sterile.
Her hypoxia quickly resolved with low flow oxygen via nasal cannula and heart rate control. Ultimately she was able to be weaned to room air on which she was breathing comfortably and saturating appropriately. She was evaluated by PT/OT who
recommended SNF for ongoing therapy. At time of hospital discharge she was medically stable. She will need close follow-up with her primary care physician and with cardiology. She should continue her regularly scheduled dialysis.
General: No Apparent Distress, Comfortable and Conversant
HEENT: NormoCephalic, Moist mucous membranes, Atraumatic
Respiratory: Clear and Non Labored Respirations
Cardiac: S1/S2 and irregular Rhythm; HR around 95
GI: Soft, Non Tender, Non Distended and Normal Bowel Sounds
Musculoskeletal: No Edema, no deformity, decreased muscle bulk throughout
: NO Whittington
Neuro: Awake, Alert, Nonfocal/grossly intact
Psych: Calm and Intact Judgment/Insight
Discharge Plan
-
Patient Disposition: [facility]/SNF
Discharge Diagnosis/Procedures: Severe sepsis secondary to Streptococcus pyogenes bacteremia
Diet: Diabetic, Carb Controlled
Activity: With assistance and As tolerated
Activity Restrictions/Additional Instructions:
Wound Care Instructions
L medial leg and knee: clean with soap and water, Adaptic,ABD pad and sanchez change q 2 days and prn drainage.
R knee: clean with soap and water, small silicone foam change q 2 days and prn drainage
Moisturize legs and arms daily
Increase protein in diet
Follow up at wound care center if wounds not healing, call for an appointment.
Ms. Nguyễn is a 84-year-old female with a medical history of end-stage renal disease (HD MWF), hyperlipidemia, cirrhosis, ascites, and hypothyroidism who presented to the ED from her nursing facility for evaluation of mental status change and
hypoxia. She had not been feeling well for 3 days prior to arrival. On exam she had superficial wounds in her bilateral lower extremities. She was found to be in A-fib with RVR with no history of A-fib. She was started on heparin drip for
anticoagulation which was later transitioned to Eliquis. Rate control options were limited due to her baseline hypotension in the setting of advanced cirrhosis with ascites. Ultimately her heart rate was well-controlled with metoprolol tartrate
12.5 mg twice daily with scheduled midodrine for blood pressure support. Cardiology was closely involved in her care and recommended considering anticoagulation with warfarin instead of Eliquis if her cirrhosis was severe. This transition can be
considered upon further evaluation in the outpatient setting.
Her blood cultures resulted positive for strep pyogenes. She was initially treated with ceftriaxone which was later transitioned to cefuroxime which will be continued through 12/22/2024 to complete antibiotic course. Her mental status returned to
baseline. Echocardiogram showed no evidence of vegetations, did show biatrial enlargement and PFO/ASD with njaf-ss-fuoxh shunt. Repeat blood cultures were sterile. Hemodialysis catheter exchange was not indicated. She underwent paracentesis on
12/11 with 4 L of fluid removed. Peritoneal fluid cultures were sterile.
Her hypoxia quickly resolved with low flow oxygen via nasal cannula and heart rate control. Ultimately she was able to be weaned to room air on which she was breathing comfortably and saturating appropriately. She was evaluated by PT/OT who
recommended SNF for ongoing therapy. At time of hospital discharge she was medically stable. She will need close follow-up with her primary care physician and with cardiology. She should continue her regularly scheduled dialysis.
Referrals:
Corey Ceballos DO [Family Provider, Internal Medicine]
Jose Soni MD [Active, Cardiology] - 01/08/25 1:40 pm
Referral Note: *Visit is located at the [facility] in [place], [place]. [address] [place] [address], [address], [place] [address]. [phone].* Please call if you need to change this visit. Thank you.
Prescriptions:
New
cefuroxime axetil 500 mg Tablet
500 mg PO Q24H 5 Days Qty: 5 0RF
metoprolol tartrate 25 mg Tablet
12.5 mg PO BID 30 Days Qty: 30 0RF
Eliquis 2.5 mg Tablet
2.5 mg PO BID 30 Days Qty: 60 0RF
Lactobac/Bifidobac [Visbiome]
2 cap PO DAILY 7 Days 0RF
Continued
acetaminophen 325 mg Tablet
325 mg PO Q6HPRN PRN (Reason: mild pain)
loperamide 2 mg Tablet
2 mg PO TIDPRN PRN (Reason: diarrhea)
midodrine 10 mg Tablet
10 mg PO TID
Rx Instructions:
hold for systolic bp>120
ammonium lactate 12 % Lotion
1 applic TOPICAL BID
atorvastatin [Lipitor] 10 mg Tablet
10 mg PO HS
aspirin 81 mg Tablet,Delayed Release (Dr/Ec)
81 mg PO DAILY
levothyroxine [Synthroid] 75 mcg Tablet
75 mcg PO DAILY
bisacodyl [Dulcolax (bisacodyl)] 10 mg Suppository
10 mg [place] Q6HPRN PRN (Reason: constipation)
vitamin B complex Tablet
1 tab PO DAILY
insulin glargine [Lantus Solostar U-100 Insulin] 100 unit/mL (3 mL) Insulin Pen
5 unit SC HS
calcium acetate 667 mg Tablet
667 mg PO AC
Discharge Orders:
Discharge Patient (As Directed); Ordered 12/18/24
Ordered By: Jamshid Morillo
Discharge Date and Time
Print Language: TURKMEN
--- NOTE | 2024-12-18 13:22 | PTCARENOTE ---
Addendum entered by Briana Reeves RN 12/18/24 13:39:
Constance SAAB notified via TT re: difficulty giving report.
Original Note:
Patient for d/c to [facility]; fruit or nut picker time is 14:30. Called # [phone] as provided by [facility]. Only reached voicemail; name and phone number of this RN/IMU phone number, as well as fruit or nut picker time, left on voicemail. TT then sent to [facility]
requesting another number to call; was given [phone]. This nurse called that number and was transferred to nurses' station; no one answered. This nurse left name and number with corporate receptionist. Await return call.
[2024-12-18] MEDS: CEFTIN 500 MG PO (13:26)
[2024-12-18] MEDS: STERILE WATER FOR INJECTION IV (13:27)
--- NOTE | 2024-12-18 17:10 | CM ---
Patient from [facility] with Hx ESRD on HD with Dx sepsis, new onset A-fib with RVR. Room air. Seen by wound care nurse. PT/OT; requires assist of 2, recommend skilled rehab.
Spoke with Ed, Coordinator [facility] x [phone]; the patient's first day of outpt HD at [facility] is 12/20 6:15am, with ongoing schedule MWF 6:30am.
Spoke with Marquis Deloris SNF Liaison for [facility] Acute SNF (ph [phone]); They are able to accept the patient today. The ph for report [phone], fax [phone]. She is aware of HD schedule with [facility] and they have arranged the
patient's transport for outpatient dialysis.
Met with patient and spoke with daughter Misa; both agree with d/c today to [facility] SNF by ambulance. IMM done yesterday.
Plan discharge today after HD, to Post Acute SNF by ambulance, with Outpt HD at [facility].
== END 2024-12-18 15:44 | DRG 871 ==
LOC: IMU 11:44
PROVIDERS: Internal Medicine; Nurse Practitioner Gerontology; Physician Assistant Medical; Radiology Vascular & Interventional Radiology; Specialist; ADMITTING PHYSICIAN General Practice; ATTENDING PHYSICIAN Internal Medicine; CONSULT PHYSICIAN Specialist; CONSULT PHYSICIAN Student in an Organized Health Care Education/Training Program; EMERGENCY PHYSICIAN Student in an Organized Health Care Education/Training Program; FAMILY PHYSICIAN Internal Medicine; OTHER PHYSICIAN Internal Medicine Infectious Disease
PROC: 5A1D70Z Performance of Urinary Filtration, Intermittent, Less than 6 Hours Per Day (ICD-10-PCS; 2024-12-10)
PROC: 0W9G3ZZ Drainage of Peritoneal Cavity, Percutaneous Approach (ICD-10-PCS; 2024-12-11)
DX: A40.0 Sepsis due to streptococcus, group A (principal); G93.41 Metabolic encephalopathy; N18.6 End stage renal disease; R18.8 Other ascites; Q21.12 Patent foramen ovale; E87.20 Acidosis, unspecified; C91.11 Chronic lymphocytic leukemia of B-cell type in remission; R64 Cachexia; R65.20 Severe sepsis without septic shock; E11.22 Type 2 diabetes mellitus with diabetic chronic kidney disease; Z99.2 Dependence on renal dialysis; E78.00 Pure hypercholesterolemia, unspecified; E03.9 Hypothyroidism, unspecified; R09.02 Hypoxemia; K74.60 Unspecified cirrhosis of liver; I48.91 Unspecified atrial fibrillation; I95.89 Other hypotension; Z79.890 Hormone replacement therapy; K59.00 Constipation, unspecified; Z79.4 Long term (current) use of insulin; K72.10 Chronic hepatic failure without coma; E83.39 Other disorders of phosphorus metabolism; Z79.82 Long term (current) use of aspirin; Z86.73 Personal history of transient ischemic attack (TIA), and cerebral infarction without residual deficits; D63.8 Anemia in other chronic diseases classified elsewhere; Z85.828 Personal history of other malignant neoplasm of skin; D69.6 Thrombocytopenia, unspecified; I87.2 Venous insufficiency (chronic) (peripheral); J44.9 Chronic obstructive pulmonary disease, unspecified
CPT/HCPCS: 88305; 49083; 71045; 73564; 73590; 80048; 80051; 80053; 80202; 82042; 82150; 82962; 83036; 83605; 83615; 83735; 83880; 84157; 84443; 85025; 85027; 85610; 85730; 86704; 86706; 87015; 87040; 87070; 87077; 87147; 87205; 87324; 87340; 87449; 88112; 89051; 93005; 93306; 96365; 96366; 96375; 97110; 97163; 97167; 97530; 97535; 99285; G0257; P9047; Q5106